=== PATIENT | male | born 1945 | race Caucasian/White ===

== ENCOUNTER → 2017-11-19 08:27 | Outpatient (CLI) | payer MEDICARE, SELFPAY ==
[2017-11-19] VITALS (8 sets, daily range): BP systolic 100–133; BP diastolic 56–75; PULSE 70–73; RESP 18; TEMP 36.4–37.1; O2SAT 97–100; BMI 32.5
[2017-11-19] MEDS: Furosemide 20 MG/2 ML VIAL IV (12:50)
[2017-11-19 17:11] LABS: Hematocrit 29.9 % (40-54); Hemoglobin 9.7 g/dl (13.0-16.5)
--- NOTE | 2017-11-19 17:25 | NURSING ---
REPORT CALLED TO T[facility] SERVICES SPECIALIST AT [place]. HGB >9, PER ORDERS WILL D/C BACK TO [facility] VIA [facility]. PT A&O, VITALS STABLE, NO REACTIONS/PROBLEMS NOTED.
== END ==
PROVIDERS: Family Provider Family Medicine; PCP Family Medicine; Visit Provider Family Medicine
DX: D64.9 Anemia, unspecified (principal); N18.9 Chronic kidney disease, unspecified
CPT/HCPCS: 36430; 85014; 85018; 86850; 86900; 86920; 86922; J7040; P9016; A4216; J1940

== ENCOUNTER 2017-12-12 14:07 | Inpatient (IN) | payer MEDICARE, SELFPAY ==
[2017-12-12] VITALS (14 sets, daily range): BP systolic 121–167; BP diastolic 56–79; PULSE 69–77; RESP 18–30; TEMP 36.9–37.6; O2SAT 94–96; BMI 37.4; BMI 33.5; BMI 37.5
--- NOTE | 2017-12-12 14:41 | RAD_ITS ---
STUDY: X-RAY CHEST REASON FOR EXAM: Male, 72 years old. Several day history of shortness of breath. TECHNIQUE: Single AP portable view of the chest. COMPARISON: None. FINDINGS: EKG electrodes are seen. A right-sided pacemaker device is seen. Small bilateral pleural effusions with bibasilar atelectasis superimposed on CHF. Sternal cerclage wires are present from a prior sternotomy. Prior mitral valve replacement. Cardiomegaly. Normal mediastinum and jake. Normal visualized pulmonary arteries. There is atherosclerotic calcification of the aortic arch with tortuosity. Normal visualized thoracic spine. Normal visualized ribs, clavicles, and shoulders. There is no demonstrated abnormality of the visualized soft tissue structures of the upper abdomen. RAD/Chest 1 View (Portable) IMPRESSION: Cardiomegaly. CHF with small bilateral pleural effusions and bibasilar atelectasis. Electronically Signed: Vadim Ortiz MD at 15:06 EDT Tel [phone], Service support ,
--- NOTE | 2017-12-12 14:42 | EKG12_ITS ---
Test Reason : SOB Blood Pressure : / mmHG Vent. Rate : 070 BPM Atrial Rate : 079 BPM P-R Int : 000 ms QRS Dur : 144 ms QT Int : 430 ms P-R-T Axes : 000 078 054 degrees QTc Int : 464 ms Ventricular-paced rhythm Abnormal ECG Confirmed by MIK RUBY, MARTHA ([id number]), brands editor ISABEL PAUL ([id number]) on 12/16/2017 1:50:10 PM Referred By: KUSH Confirmed By:MARTHA HOUSER MD
--- NOTE | 2017-12-12 14:43 | VDLE_ITS ---
Reason For Study: SWELLING RIGHT LEFT CFV is compressible, spontaneous, phasic, CFV is compressible, spontaneous, phasic, competent and demonstrates normal competent, and demonstrates normal augmentation. augmentation. FV is compressible, spontaneous, phasic, FV is compressible, spontaneous, phasic, competent and demonstrates normal competent and demonstrates normal augmentation. augmentation. POP V is compressible, spontaneous, phasic, POP V is compressible, spontaneous, phasic, competent and demonstrates normal competent and demonstrates normal augmentation. augmentation. T/P Trunk is compressible. T/P Trunk is compressible. PTV is compressible. PTV is compressible. RT PerV is compressible. LT PerV is compressible. RT GSV has been harvested. Left GSV has been harvested. Procedure Exam performed portable in ED. The study was technically difficult. Technically difficult with limited windows due to recent arterial bypass/ stitches in left femoral and calf area. A preliminary report was called and/or faxed to ED. Interpretation Summary Deep veins of the lower extremities are bilaterally patent and compressible segmentally. There is no evidence of deep vein thrombosis on either side. Valvular competence appears intact within the proximal deep venous systems bilaterally. The greater saphenous veins are absent bilaterally, having been previously harvested. Ordering Physician: Bry Crawford Referring Physician: Murali Yusuf Performed By: Ella Omer, NELIDACS, RVT
[2017-12-12] MEDS: Ipratropium/Albuterol Sulfate 3 ML AMPUL.NEB INHALATION (15:05)
[2017-12-12 15:07] LABS: Absolute Lymphocyte Count 0.48 X10^3/ul (0.83-4.51); Absolute Neutrophil Count 20.4 X10^3/uL (2.0-7.7); Basophil# 0.03 X10^3/uL; Basophil% 0.1 % (0-1); Eosinophils% 0.4 % (0-5); Hematocrit 30.8 % (40-54); Lymphocyte # 0.48 X10^3/ul (4.0); Lymphocyte % 2.1 % (19-41); Mean Corp Hgb Conc 32.5 g/gl (32-36); Mean Corpuscular Hgb 29.3 pg (27.0-32.0); Mean Corpuscular Volume 90.3 fL (80-94); Mean Platelet Vol. 8.8 fl (6.2-12.0); Monocyte# 1.44 X10^3/uL; Monocyte% 6.4 % (0-10); Neutrophil # 20.43 X10^3/uL (2.7-7.7); Neutrophil % 90.6 % (47-70); Platelet Count 263 K/mm3 (150-450); RBC Distribution Width SD 44.4 fl (35.1-43.9); Red Blood Count 3.41 M/mm3 (4.6-6.2); White Blood Count 22.6 K/mm3 (4.4-11.0)
[2017-12-12 15:08] LABS: Differential Indicated SCAN CRITERIA MET; POSITIVE COUNT NO; POSITIVE DIFFERENTIAL YES; POSITIVE MORPHOLOGY NO
[2017-12-12 15:21] LABS: Anion Gap 9 (5-15); BUN 41 mg/dL (7-18); BUN/Creat Ratio 22.4 RATIO (10-20); Calcium,Total 8.8 mg/dL (8.5-10.1); Chloride 108 mmol/L (98-107); Creatinine, Serum 1.83 mg/dL (0.70-1.30); EST Glomerular Filtration Rate 39 mL/min (>60); Est Glom Filt Rate - Afr Amer 47 mL/min (>60); Estimated Creatinine Clearance 34.26 ml/min; Glucose 154 mg/dL (74-106); Potassium 4.1 mmol/L (3.5-5.1); Sodium Level 141 mmol/L (136-145)
--- NOTE | 2017-12-12 15:25 | CT_ITS ---
STUDY: CT CHEST WITHOUT CONTRAST REASON FOR EXAM: Male, 72 years old. Infiltrate surgery 2 months ago short of breath RADIATION DOSAGE (If Supplied By Facility): CTDIvol = ( 19.81 ) mGy, DLP = ( 658.49 ) mGycm TECHNIQUE: Transaxial imaging was performed without the administration of intravenous contrast material. Multiplanar coronal and sagittal images were reformatted. Individualized dose optimization techniques were used for this CT. COMPARISON: December 12, 2017 chest x-ray FINDINGS: There is a moderate volume right pleural fluid collection with right lower lobe atelectasis and/or consolidation. There is plaquing in the left pleural and left pleural thickening which is age indeterminant. There is moderate cardiomegaly status post sternotomy and coronary artery calcifications and several pacer leads including abandoned leads and numerous leads extending from the right chest. There is calcification of the takeoff of the aorta. There is mild central groundglass opacity. There is a lymph node in the precarinal space measuring 1.5 cm. There are several small subcentimeter lymph nodes. Normal mediastinum. Normal hilar regions. Normal unenhanced pulmonary arteries. There is atherosclerotic calcification of the aortic arch with tortuosity and elongation of the aortic arch and descending thoracic aorta. There is an increased kyphosis of the thoracic spine. There is an enlarged appearance of the liver with a hypertrophied appearance of the caudate. There is a distended appearance of the inferior vena cava. There are numerous calcifications in the visualized spleen compatible with old granulomatous disease. There is postoperative change status post cholecystectomy. CT/Chest without Contrast IMPRESSION: There is a moderate to large right pleural effusion with atelectasis and/or consolidation. There is mild central vascular congestion Left pleural thickening and plaquing. This may represent prior procedure and/or history of infection. Cardiomegaly pacer defibrillator leads status post sternotomy. 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 Electronically Signed: Zeinab Yo MD at 16:40 EDT Tel , Service support ,
[2017-12-12 15:28] LABS: Lactic Acid 1.1 mmol/L (0.4-2.0)
[2017-12-12 15:33] LABS: D-Dimer Quantitative (DVT/PE) 2.76 FEU/ug/m (0.27-0.49)
[2017-12-12 16:16] LABS: Bacteria 0 SEEN /hpf (None Seen); Mucous, Urine 0 SEEN /hpf (<or=2+); Red Blood Cells-Urine 0 SEEN /hpf (0-5); Squamous Epithelial Cells - UA 0 SEEN /hpf (0-5)
[2017-12-12 16:21] LABS: Color, Urine Yellow (Yellow); Glucose, Dipstick Normal (Normal); Ketone-Dipstick Negative (Negative); Leukocyte Esterase-Dipstick 25 /ul (Negative); Nitrite-Dipstick Negative (Negative); Occult Blood-Urine Negative /ul (Negative); Protein-Dipstick 100 mg/dl (Negative); Specific Gravity, Urine 1.015 (1.002-1.030); Urine Bilirubin Dipstick Negative (Negative); Urine Clarity Clear (Clear); Urine Urobilinogen Normal (Normal)
--- NOTE | 2017-12-12 16:44 | ED.RN ---
1600-Dr. Crawford and Dr. Isaac at bedside. Patient voided approx 250ml urine via urinal. Refusing catheter at this time. Specimen obtained and sent to lab.
[2017-12-12] MEDS: Furosemide 40 MG/4 ML Vial IV ×2 (16:55→22:58)
--- NOTE | 2017-12-12 17:13 | ED.VISSUMM ---
- ER Visit Summary Date of Service: 12/12/17 Chief Complaint: Shortness of breath History of Present Illness: The patient is a [address] Murali Qureshi. He reports he is shortness of breath began 2 days ago. Is gradually gotten worse. It is severe at worst and mild currently. It is worsened by exertion. It is relieved somewhat by albuterol and oxygen. He also complains of subjective fever and sweats. Reports he had 3-4 episodes of diarrhea today. No blood in his stools or black tarry stools. No abdominal pain, nausea, or vomiting. He does complain of dysuria as well. Patient is a poor informant. Physical Examination: Vitals: Stable. Afebrile. General: Well-nourished and well-developed. Head: Normocephalic atraumatic. Neck: Supple, no lymphadenopathy. No JVD. Nontender. Cardiovascular: Regular rate and rhythm. No murmurs. Respiratory: No respiratory distress. Crackles at the bases bilaterally. Abdominal: Soft, nontender, nondistended, normal bowel sounds. No guarding, rebound, or peritoneal signs. Back: Nontender. Extremities: 3+ pitting edema of his lower extremities bilaterally. Well-healed incisions on the medial side of his left thigh and left leg. They are clean, dry, and intact. There is no surrounding erythema or induration to suggest infection. He has mild erythema to the distal portion of his left leg. There is minimal warmth. 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 The incision here is healing and has granulation tissue present. There is no erythema, warmth, drainage, or odor. Skin: Normal color, no rash. Neurologic: Alert and moves all extremities well. Psych: Normal affect. Test Results: EKG is ventricular paced at 70. Bilateral lower extremity Dopplers are negative. Troponin is negative. Chem-7 is more for chloride 1 week, BUN 41, creatinine 1.3, glucose 154. There is not an old creatinine for comparison. CBC is marked for white count of 22.6, H&H of 10.0 30.8, segmented neutrophils of 91, leukocytes of 2. Lactic acid is 1.1. Chest x-ray shows CHF, cardiomegaly, small bilateral pleural effusions and atelectasis. CT chest without contrast shows moderate to large right pleural effusion with atelectasis and/or consolidation. Mild vascular congestion. UA is normal. Emergency Department Course and Treatment: Patient is treated albuterol and Atrovent aerosols. He was given Lasix and Zosyn IV. He is resting comfortably and appears improved. Treatment Plan: The patient was discussed with Dr. Isaac. He will be admitted to the hospital for further relation and treatment. Disposition: Admitted in improved condition. Impression: 1. CHF. 2. Bilateral pleural effusions. 3. Pneumonia, healthcare acquired. 4. Chronic renal insufficiency. This note was generated with Glia[employer]ure dictation software. It may contain incorrect words, spelling, and punctuation that were not noted in review of the chart prior to signing ED Disposition - Plan for ED Patient: Chief Complaint: Shortness of Breath Referrals: Murali Yusuf MD [Primary Care Provider] -
--- NOTE | 2017-12-12 17:16 | ED.DCSUM_ITS ---
- ER Visit Summary Date of Service: 12/12/17 Chief Complaint: Shortness of breath History of Present Illness: The patient is a [address] Murali Qureshi. He reports he is shortness of breath began 2 days ago. Is gradually gotten worse. It is severe at worst and mild currently. It is worsened by exertion. It is relieved somewhat by albuterol and oxygen. He also complains of subjective fever and sweats. Reports he had 3-4 episodes of diarrhea today. No blood in his stools or black tarry stools. No abdominal pain, nausea, or vomiting. He does complain of dysuria as well. Patient is a poor informant. Physical Examination: Vitals: Stable. Afebrile. General: Well-nourished and well-developed. Head: Normocephalic atraumatic. Neck: Supple, no lymphadenopathy. No JVD. Nontender. Cardiovascular: Regular rate and rhythm. No murmurs. Respiratory: No respiratory distress. Crackles at the bases bilaterally. Abdominal: Soft, nontender, nondistended, normal bowel sounds. No guarding, rebound, or peritoneal signs. Back: Nontender. Extremities: 3+ pitting edema of his lower extremities bilaterally. Well- healed incisions on the medial side of his left thigh and left leg. They are clean, dry, and intact. There is no surrounding erythema or induration to suggest infection. He has mild erythema to the distal portion of his left leg. There is minimal warmth. 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 The incision here is healing and has granulation tissue present. There is no erythema, warmth, drainage, or odor. Skin: Normal color, no rash. Neurologic: Alert and moves all extremities well. Psych: Normal affect. Test Results: EKG is ventricular paced at 70. Bilateral lower extremity Dopplers are negative. Troponin is negative. Chem-7 is more for chloride 1 week, BUN 41, creatinine 1.3, glucose 154. There is not an old creatinine for comparison. CBC is marked for white count of 22.6, H&H of 10.0 30.8, segmented neutrophils of 91, leukocytes of 2. Lactic acid is 1.1. Chest x-ray shows CHF , cardiomegaly, small bilateral pleural effusions and atelectasis. CT chest without contrast shows moderate to large right pleural effusion with atelectasis and/or consolidation. Mild vascular congestion. UA is normal. Emergency Department Course and Treatment: Patient is treated albuterol and Atrovent aerosols. He was given Lasix and Zosyn IV. He is resting comfortably and appears improved. Treatment Plan: The patient was discussed with Dr. Isaac. He will be admitted to the hospital for further relation and treatment. Disposition: Admitted in improved condition. Impression: 1. CHF. 2. Bilateral pleural effusions. 3. Pneumonia, healthcare acquired. 4. Chronic renal insufficiency. This note was generated with [employer]ar dictation software. It may contain incorrect words, spelling, and punctuation that were not noted in review of the chart prior to signing ED Disposition - Plan for ED Patient: Chief Complaint: Shortness of Breath Referrals: Murali Yusuf MD [Primary Care Provider] -
[2017-12-12 17:19] LABS: White Blood Cells 0-5 SEEN /hpf (0-5)
[2017-12-12 17:25] LABS: Platelet Estimate ADEQUATE (ADEQ)
[2017-12-12 17:26] LABS: Differential Comment SCANNED
--- NOTE | 2017-12-12 17:36 | ED.RN ---
daughter jewel for contact. [phone]
[2017-12-12] MEDS: Albuterol 2.5 MG/3 ML VIAL.NEB. INHALATION (21:22)
--- NOTE | 2017-12-12 22:31 | PCM.HP.STD ---
Problem List (1) Shortness of breath Status: Acute (2) Generalized leg edema Status: Acute History of Present Illness Date of Admission: 12/12/17 Chief Complaint: Generalized bilateral leg edema, shortness of breath The patient is a 72 year old M who was sent to the emergency room at [facility] for evaluation of increased lower extremity edema along with shortness of breath from a local extended care facility. Patient recently had arterial bypass surgery on his right leg and was sent to the extended care facility for rehab recently. Patient has dementia and was unable to provide any medical information, I talked with the family member who was present at the time of my examination to get some medical information from the family member. Evaluation in the emergency room included a chest x-ray which showed evidence of CHF, CT of the chest was performed which showed a right lower lobe infiltrate or atelectasis also. Patient's d-dimer was elevated so a venous duplex scan was done of the lower extremities which was negative for DVT. Patient's labs showed an elevated white blood cell count at 22.6, creatinine was elevated at 1.83, BUN was 41, and glucose is 154. Patient was alert, he did not appear to be in any distress. Patient will be admitted for acute congestive heart failure, echocardiogram be obtained on the patient, he will be given IV Lasix, and he will also be treated for healthcare acquired pneumonia with IV Zosyn. Repeat labs will be obtained tomorrow, repeat chest x-ray will be obtained. 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 Home Medications: Ambulatory Orders Medication Instructions Recorded acetaminophen 325 mg capsule 650 mg PO Q4H PRN 10/01/17 acetaminophen 650 mg rectal 650 mg RC Q4H PRN supp 10/01/17 suppository aluminum-magnesium hydroxide 225 30 ml PO Q4H PRN 10/01/17 mg-200 mg/5 mL oral suspension amlodipine 10 mg tablet 10 mg PO DAILY 10/01/17 ascorbic acid (vitamin C) 250 mg 250 mg PO DAILY 10/01/17 tablet atorvastatin 40 mg tablet 40 mg PO DAILY 10/01/17 bisacodyl 10 mg rectal suppository 10 mg RC DAILY PRN PRN 10/01/17 carvedilol 25 mg tablet 25 mg PO BID 10/01/17 clopidogrel 75 mg tablet 75 mg PO DAILY 10/01/17 ferrous sulfate 325 mg (65 mg 325 mg PO TID tab 10/01/17 iron) tablet furosemide 40 mg tablet 40 mg PO DAILY tab 10/01/17 glucagon (human recombinant) 1 mg 1 mg IM ONCE 10/01/17 injection kit ipratropium-albuterol 0.5 mg-3 3 ml INHALATION Q6H ml 10/01/17 mg(2.5 mg base)/3 mL nebulization soln levothyroxine 100 mcg capsule 100 mcg PO DAILY cap 10/01/17 lisinopril 40 mg tablet 40 mg PO DAILY 10/01/17 magnesium hydroxide 400 mg/5 mL 30 ml PO ONCE 10/01/17 oral suspension memantine 10 mg tablet 10 mg PO BID 10/01/17 mineral oil enema 118 ml RC ONCE PRN 10/01/17 multivitamin tablet 1 tab PO DAILY 10/01/17 pantoprazole 40 mg tablet,delayed 40 mg PO DAILY 10/01/17 release sennosides 8.6 mg tablet 8.6 mg PO BID 10/01/17 tamsulosin 0.4 mg capsule 0.4 mg PO DAILY 10/01/17 vitamin E (dl, acetate) 400 unit 400 unit PO DAILY 10/01/17 capsule zinc sulfate 220 mg (50 mg) capsule 220 mg PO DAILY cap 10/01/17 linagliptin 5 mg tablet 5 mg PO DAILY 10/02/17 Guaifenesin 10 ml PO PRN PRN 11/19/17 Oxycodone HCl/Acetaminophen 1 tablet PO Q4H PRN PRN 11/19/17 [Percocet 5/325] Surgical History: - - Patient had bypass surgery on his left leg approximately 1 month ago, 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 VTE Information - Inpt Only VTE Present on Admission: No VTE Mechan Device Prophylaxis: None VTE Pharm Prophylaxis ordered?: Yes Patient Problems: Active and Suspected Problems (Last Reviewed 10/02/17 @ 14:38 by Nessa Jackson) Shortness of breath (Acute) Generalized leg edema (Acute) - Physical Exam General: Alert, Cooperative, No apparent distress, Well developed, Well nourished HEENT: Atraumatic, PERRLA, EOMI, Normocephalic Oral: Moist Mucosa Neck: Supple, No JVD, Negative Carotid Bruits, No Nuchal Rigidity, Trachea Midline, Thyroid Normal Size and Texture Lungs: Clear to auscultation, No rhonchi, No wheeze, No rales, Diminished - Diminished breath sounds at the right base Cardiovascular: Regular rate, Regular Rhythm, Normal S1, Normal S2, No murmurs, No Ectopic Activity, PMI Normal, No rub noted, No Gallop, - - Patient has paced rhythm Abdomen: Bowel Sounds Present, Soft, Non Tender, Non-Distended, No hernias noted Extremities: Capillary Refill Less than 3 Seconds, Edema - Severe generalized edema of both lower legs is noted, there is an incision over the medial aspect of the left lower leg closed with interrupted sutures Skin: No rashes, No breakdown, Ulcer/ Wound - There is a right forefoot amputation present which appears to be healing adequately without signs of drainage or infection, Incision - There is a healing incision over the patient's left lower leg on the inner aspect with interrupted sutures present Musculoskeletal: No Tenderness to Palpation of Joints or Extremities Neurological: Cranial nerves II-XII grossly intact, Neuro grossly intact, Sensory exam intact to light touch and pain Psych/Mental Status: - - Patient is alert, he answers some questions appropriately, he has confusion Vital Signs Temp Pulse Resp BP Pulse Ox 99.7 F H 74 20 H 139/70 H 96 12/12/17 18:45 12/12/17 21:22 12/12/17 21:22 12/12/17 18:45 12/12/17 21:27 Oxygen Flow Rate (L/min) 3 Oxygen Delivery Method Nasal Cannula Weight: 100 kg Body Mass Index (BMI) 33.5 Assessment/Plan Active and Suspected Problems (Last Reviewed 10/02/17 @ 14:38 by Nessa Jackson) Shortness of breath (Acute) Generalized leg edema (Acute) #1 congestive heart failure-unknown whether this is diastolic or systolic, patient will be admitted to PCU, echocardiogram will be obtained, IV Lasix will be given, patient will be kept on his present medications #2 right lower lobe infiltrate-in the presence of an elevated white blood cell count, I suspect this could be due to healthcare acquired pneumonia, patient will be placed on Zosyn and repeat chest x-rays will be obtained, labs will be monitored, aerosol treatments will be given #3 COPD-continue aerosol treatments #4 Perperiperal vascular disease #5 Alzheimer's dementia #6 Hypertension #7 A-fib-poor candidate for anticoagulation due to dementia #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
--- NOTE | 2017-12-12 22:35 | HP.PCM_ITS ---
Problem List (1) Shortness of breath Status: Acute (2) Generalized leg edema Status: Acute History of Present Illness Date of Admission: 12/12/17 Chief Complaint: Generalized bilateral leg edema, shortness of breath The patient is a 72 year old M who was sent to the emergency room at [facility] for evaluation of increased lower extremity edema along with shortness of breath from a local extended care facility. Patient recently had arterial bypass surgery on his right leg and was sent to the extended care facility for rehab recently. Patient has dementia and was unable to provide any medical information, I talked with the family member who was present at the time of my examination to get some medical information from the family member. Evaluation in the emergency room included a chest x-ray which showed evidence of CHF, CT of the chest was performed which showed a right lower lobe infiltrate or atelectasis also. Patient's d-dimer was elevated so a venous duplex scan was done of the lower extremities which was negative for DVT. Patient's labs showed an elevated white blood cell count at 22.6, creatinine was elevated at 1.83, BUN was 41, and glucose is 154. Patient was alert, he did not appear to be in any distress. Patient will be admitted for acute congestive heart failure, echocardiogram be obtained on the patient, he will be given IV Lasix, and he will also be treated for healthcare acquired pneumonia with IV Zosyn. Repeat labs will be obtained tomorrow, repeat chest x-ray will be obtained. Past Medical History Past Medical History (Chronic Problems): Chronic Problems (Last Reviewed 10/02/17 @ 14:38 by Nessa Jackson) Atherosclerotic heart disease of [place] coronary artery without angina pectoris (Chronic) Hypertension (Chronic) Allergies aspirin Adverse Reaction (Intermediate, Verified 10/02/17 14:23) Unknown iodine Adverse Reaction (Unknown, Verified 10/02/17 14:23) Unknown Patient has one kidney, change management director wanted it listed as allergy Home Medications: Ambulatory Orders Medication Instructions Recorded acetaminophen 325 mg capsule 650 mg PO Q4H PRN 10/01/17 acetaminophen 650 mg rectal 650 mg RC Q4H PRN supp 10/01/17 suppository aluminum-magnesium hydroxide 225 30 ml PO Q4H PRN 10/01/17 mg-200 mg/5 mL oral suspension amlodipine 10 mg tablet 10 mg PO DAILY 10/01/17 ascorbic acid (vitamin C) 250 mg 250 mg PO DAILY 10/01/17 tablet atorvastatin 40 mg tablet 40 mg PO DAILY 10/01/17 bisacodyl 10 mg rectal suppository 10 mg RC DAILY PRN PRN 10/01/17 carvedilol 25 mg tablet 25 mg PO BID 10/01/17 clopidogrel 75 mg tablet 75 mg PO DAILY 10/01/17 ferrous sulfate 325 mg (65 mg 325 mg PO TID tab 10/01/17 iron) tablet furosemide 40 mg tablet 40 mg PO DAILY tab 10/01/17 glucagon (human recombinant) 1 mg 1 mg IM ONCE 10/01/17 injection kit ipratropium-albuterol 0.5 mg-3 3 ml INHALATION Q6H ml 10/01/17 mg(2.5 mg base)/3 mL nebulization soln levothyroxine 100 mcg capsule 100 mcg PO DAILY cap 10/01/17 lisinopril 40 mg tablet 40 mg PO DAILY 10/01/17 magnesium hydroxide 400 mg/5 mL 30 ml PO ONCE 10/01/17 oral suspension memantine 10 mg tablet 10 mg PO BID 10/01/17 mineral oil enema 118 ml RC ONCE PRN 10/01/17 multivitamin tablet 1 tab PO DAILY 10/01/17 pantoprazole 40 mg tablet,delayed 40 mg PO DAILY 10/01/17 release sennosides 8.6 mg tablet 8.6 mg PO BID 10/01/17 tamsulosin 0.4 mg capsule 0.4 mg PO DAILY 10/01/17 vitamin E (dl, acetate) 400 unit 400 unit PO DAILY 10/01/17 capsule zinc sulfate 220 mg (50 mg) capsule 220 mg PO DAILY cap 10/01/17 linagliptin 5 mg tablet 5 mg PO DAILY 10/02/17 Guaifenesin 10 ml PO PRN PRN 11/19/17 Oxycodone HCl/Acetaminophen 1 tablet PO Q4H PRN PRN 11/19/17 [Percocet 5/325] Surgical History: - - Patient had bypass surgery on his left leg approximately 1 month ago, 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 VTE Information - Inpt Only VTE Present on Admission: No VTE Mechan Device Prophylaxis: None VTE Pharm Prophylaxis ordered?: Yes Patient Problems: Active and Suspected Problems (Last Reviewed 10/02/17 @ 14:38 by Nessa Jackson) Shortness of breath (Acute) Generalized leg edema (Acute) - Physical Exam General: Alert, Cooperative, No apparent distress, Well developed, Well nourished HEENT: Atraumatic, PERRLA, EOMI, Normocephalic Oral: Moist Mucosa Neck: Supple, No JVD, Negative Carotid Bruits, No Nuchal Rigidity, Trachea Midline, Thyroid Normal Size and Texture Lungs: Clear to auscultation, No rhonchi, No wheeze, No rales, Diminished - Diminished breath sounds at the right base Cardiovascular: Regular rate, Regular Rhythm, Normal S1, Normal S2, No murmurs, No Ectopic Activity, PMI Normal, No rub noted, No Gallop, - - Patient has paced rhythm Abdomen: Bowel Sounds Present, Soft, Non Tender, Non-Distended, No hernias noted Extremities: Capillary Refill Less than 3 Seconds, Edema - Severe generalized edema of both lower legs is noted, there is an incision over the medial aspect of the left lower leg closed with interrupted sutures Skin: No rashes, No breakdown, Ulcer/ Wound - There is a right forefoot amputation present which appears to be healing adequately without signs of drainage or infection, Incision - There is a healing incision over the patient' s left lower leg on the inner aspect with interrupted sutures present Musculoskeletal: No Tenderness to Palpation of Joints or Extremities Neurological: Cranial nerves II-XII grossly intact, Neuro grossly intact, Sensory exam intact to light touch and pain Psych/Mental Status: - - Patient is alert, he answers some questions appropriately, he has confusion Vital Signs Temp Pulse Resp BP Pulse Ox 99.7 F H 74 20 H 139/70 H 96 12/12/17 18:45 12/12/17 21:22 12/12/17 21:22 12/12/17 18:45 12/12/17 21:27 Oxygen Flow Rate (L/min) 3 Oxygen Delivery Method Nasal Cannula Weight: 100 kg Body Mass Index (BMI) 33.5 Assessment/Plan Active and Suspected Problems (Last Reviewed 10/02/17 @ 14:38 by Nessa Jackson) Shortness of breath (Acute) Generalized leg edema (Acute) #1 congestive heart failure-unknown whether this is diastolic or systolic, patient will be admitted to PCU, echocardiogram will be obtained, IV Lasix will be given, patient will be kept on his present medications #2 right lower lobe infiltrate-in the presence of an elevated white blood cell count, I suspect this could be due to healthcare acquired pneumonia, patient will be placed on Zosyn and repeat chest x-rays will be obtained, labs will be monitored, aerosol treatments will be given #3 COPD-continue aerosol treatments #4 Perperiperal vascular disease #5 Alzheimer's dementia #6 Hypertension #7 A-fib-poor candidate for anticoagulation due to dementia #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
[2017-12-12] MEDS: Heparin Injection 5,000 UNITS/ML Syringe 5000 UNITS SC (22:57)
[2017-12-13] VITALS (17 sets, daily range): BP systolic 117–133; BP diastolic 58–82; PULSE 70–77; RESP 15–20; TEMP 36.6–37.9; O2SAT 94–97
[2017-12-13] MEDS: Piperacil/Tazobactam 3.375 GM/50 ML ML IV ×2 (01:54→09:06)
[2017-12-13] MEDS: Furosemide 40 MG/4 ML Vial IV ×3 (05:22→20:39)
[2017-12-13] MEDS: Heparin Injection 5,000 UNITS/ML Syringe 5000 UNITS SC ×3 (05:22→21:54)
--- NOTE | 2017-12-13 05:55 | ECHOD_ITS ---
Reason For Study: Dyspnea/SOB Procedure This was a 2D Doppler, Color Flow transthoracic echocardiogram. Did not use Definity due to increased PAP. Exam performed portable in patient room. Left Ventricle Normal LV size. Mild concentric left ventricular hypertrophy. D shaped septum in diastole. Left ventricular systolic function is lower limits of normal. The estimated ejection fraction is 50 %. No regional wall motion abnormalities noted. Right Ventricle Normal RV size. ICD or pacer leads identified within the right ventricle. Normal systolic function. Atria The left atrium is mildly enlarged. The right atrium is moderately enlarged. Mitral Valve There is moderate to severe mitral annular calcification. Mild (1+) eccentric mitral valve insufficiency. Tricuspid Valve Normal tricuspid valve. Mild (1+) tricuspid valve insufficiency. Pulmonary artery systolic pressure is 52 mmHg. Aortic Valve Trisinus/trileaflet aortic valve. Moderate focal aortic valve calcification. Peak aortic valve gradient 27 mmHg. Mean aortic valve gradient 16 mmHg. Calculated aortic valve area (continuity equation) is 1.3 cm2. Pulmonic Valve The pulmonic valve is not well visualized. Great Vessels Mildly dilated aortic root. The pulmonary artery is normal size. The inferior vena cava is dilated. Pericardium/Pleural No pericardial effusion. MMode/2D Measurements & Calculations LVIDd: 4.8 cm IVSd: 1.4 cm LVOT diam: 2.1 cm LVIDs: 3.5 cm LVPWd: 1.2 cm LVOT area: 3.5 cm2 FS: 27.5 % Ao root diam: 3.7 cm LAV(MOD-bp): 87.4 ml LA A4 area: 24.3 cm2 LA dimension: 5.6 cm LAV(MOD-bp) Indexed: 41.1 ml/m2 LAV(MOD-sp2): 85.8 ml LAV(MOD-sp4): 67.4 ml RA A4 area: 30.2 cm2 Time Measurements MV dec time: 0.11 sec Doppler Measurements & Calculations MV E max meng: 135.6 cm/sec Lat Peak E' Meng: 11.7 cm/sec Med Peak E' Meng: 10.1 cm/sec MV A max meng: 37.9 cm/sec E/E' lat: 11.5 E/E' med: 13.4 MV E/A: 3.6 MV V2 max: 171.4 cm/sec MV P1/2t max meng: 163.1 cm/sec Ao V2 max: 261.7 cm/sec MV max P.8 mmHg MV P1/2t: 69.5 msec Ao max P.4 mmHg MV V2 mean: 78.4 cm/sec MV dec slope: 687.3 cm/sec2 Ao V2 mean: 192.1 cm/sec MV mean P.3 mmHg MVA(P1/2t): 3.2 cm2 Ao mean P.2 mmHg MV V2 VTI: 40.1 cm Ao V2 VTI: 53.8 cm MVA(VTI): 2.6 cm2 ADELINE(I,D): 1.9 cm2 ADELINE(V,D): 1.3 cm2 LV V1 max: 93.2 cm/sec SV(LVOT): 102.8 ml PA V2 max: 133.6 cm/sec LV V1 max P.9 mmHg LV V1 mean P.2 mmHg LV V1 mean: 97.2 cm/sec LV V1 VTI: 29.0 cm TR max meng: 344.7 cm/sec TR max P.5 mmHg Interpretation Summary Normal LV size. Mild concentric left ventricular hypertrophy. D shaped septum in diastole. Left ventricular systolic function is lower limits of normal. The estimated ejection fraction is 50 %. Mild (1+) tricuspid valve insufficiency. Pulmonary artery systolic pressure is 52 mmHg. Calculated aortic valve area (continuity equation) is 1.3 cm2. Ordering Physician: Buck Isaac Referring Physician: Murali Yusuf Performed By: Opal Juarez RDCS, RVT
--- NOTE | 2017-12-13 05:55 | RAD_ITS ---
STUDY: X-RAY CHEST REASON FOR EXAM: Male, 72 years old. Shortness of breath TECHNIQUE: Single AP portable view of the chest. COMPARISON: December 12, 2017 chest x-ray FINDINGS: There are left-sided pacer leads which are banding. There is a right-sided pacer. Since prior study there is a similar pattern of blunting of the costophrenic angles and hazy lower lobe opacities. Normal size heart. Normal mediastinum and jake. Normal visualized pulmonary arteries. There is atherosclerotic tortuosity of the aortic arch and descending thoracic aorta. There are diffuse degenerative changes of the visualized thoracic spine. Normal visualized ribs, clavicles, and shoulders. There is no demonstrated abnormality of the visualized soft tissue structures of the upper abdomen. RAD/Chest 1 View (Portable) IMPRESSION: Stable chest bilateral effusions and lower lobe atelectasis. Cardiomegaly status post sternotomy defibrillator leads as detailed above. Electronically Signed: Zeinab Yo MD at 8:29 EDT Tel , Service support ,
[2017-12-13] MEDS: Albuterol 2.5 MG/3 ML VIAL.NEB. INHALATION ×4 (07:04→23:56)
[2017-12-13 07:18] LABS: Hematocrit 29.1 % (40-54); Hemoglobin 9.2 g/dl (13.0-16.5); Mean Corp Hgb Conc 31.6 g/gl (32-36); Mean Corpuscular Volume 91.8 fL (80-94); Mean Platelet Vol. 9.6 fl (6.2-12.0); Platelet Count 222 K/mm3 (150-450); RBC Distribution Width CV 14.2 % (11.6-14.6); Red Blood Count 3.17 M/mm3 (4.6-6.2); White Blood Count 23.9 K/mm3 (4.4-11.0)
[2017-12-13 07:20] LABS: Scan Indicated on CBC? Y/N NO
[2017-12-13 11:39] LABS: Anion Gap 7 (5-15); BUN 41 mg/dL (7-18); BUN/Creat Ratio 19.2 RATIO (10-20); Calcium,Total 8.9 mg/dL (8.5-10.1); Chloride 108 mmol/L (98-107); Creatinine, Serum 2.13 mg/dL (0.70-1.30); EST Glomerular Filtration Rate 32 mL/min (>60); Est Glom Filt Rate - Afr Amer 39 mL/min (>60); Estimated Creatinine Clearance 29.44 ml/min; Glucose 103 mg/dL (74-106); Potassium 4.2 mmol/L (3.5-5.1); Sodium Level 143 mmol/L (136-145)
[2017-12-13] MEDS: Cefepime 1 GM in 0.9% NS 50 ML Minibag Q12 IV ×2 (13:23→21:55)
--- NOTE | 2017-12-13 13:39 | CASEMGMT ---
Social Work Unit: PCU Received notice that patient is from a [place] [facility]. Chart reviewed noting patient if from [facility]. Spoke with Kayley from [facility], who reports patient is currently intermediate level of care under Medicaid (which was just approved last week). Patient is currently on a [place] bed hold at the [place] [facility], and can return under Medicaid if needed. Should patient require skilled level of care, then will need to submit to insurance of [employer]. Spoke with physician treating patient at hospital, patient not yet ready for discharge and anticipating stay through the weekend. Plan: Social work to follow and will follow up on Friday12-15-17. Anticipating return to [facility], intermediate versus skilled level of care. -MIKE Naik, DUST PULLER
--- NOTE | 2017-12-13 13:57 | PCM.CONS.C ---
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 He also has history of ICD placement. He presented to the hospital with complaints of progressive shortness of breath over the last few days. Mild cough. Minimal expectoration. Not sure about orthopnea. Positive ankle edema. Denies any chest pain. Denies any palpitations. No syncope or presyncope. Patient was noted to be in atrial fibrillation. Subsequently he was started on calcium channel blockers for rate control. Also started on Xarelto for anticoagulation. Patient denies any previous history of atrial fibrillation. He denies any bleeding disorders. No history of frequent falls. 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 wanted it listed as allergy Home Medications: Ambulatory Orders Medication Instructions Recorded acetaminophen 325 mg capsule 650 mg PO Q4H PRN 10/01/17 acetaminophen 650 mg rectal 650 mg RC Q4H PRN supp 10/01/17 suppository aluminum-magnesium hydroxide 225 30 ml PO Q4H PRN 10/01/17 mg-200 mg/5 mL oral suspension amlodipine 10 mg tablet 10 mg PO DAILY 10/01/17 ascorbic acid (vitamin C) 250 mg 250 mg PO DAILY 10/01/17 tablet atorvastatin 40 mg tablet 40 mg PO DAILY 10/01/17 bisacodyl 10 mg rectal suppository 10 mg RC DAILY PRN PRN 10/01/17 carvedilol 25 mg tablet 25 mg PO BID 10/01/17 clopidogrel 75 mg tablet 75 mg PO DAILY 10/01/17 ferrous sulfate 325 mg (65 mg 325 mg PO TID tab 10/01/17 iron) tablet furosemide 40 mg tablet 40 mg PO DAILY tab 10/01/17 glucagon (human recombinant) 1 mg 1 mg IM ONCE 10/01/17 injection kit ipratropium-albuterol 0.5 mg-3 3 ml INHALATION Q6H ml 10/01/17 mg(2.5 mg base)/3 mL nebulization soln levothyroxine 100 mcg capsule 100 mcg PO DAILY cap 10/01/17 lisinopril 40 mg tablet 40 mg PO DAILY 10/01/17 magnesium hydroxide 400 mg/5 mL 30 ml PO ONCE 10/01/17 oral suspension memantine 10 mg tablet 10 mg PO BID 10/01/17 mineral oil enema 118 ml RC ONCE PRN 10/01/17 multivitamin tablet 1 tab PO DAILY 10/01/17 pantoprazole 40 mg tablet,delayed 40 mg PO DAILY 10/01/17 release sennosides 8.6 mg tablet 8.6 mg PO BID 10/01/17 tamsulosin 0.4 mg capsule 0.4 mg PO DAILY 10/01/17 vitamin E (dl, acetate) 400 unit 400 unit PO DAILY 10/01/17 capsule zinc sulfate 220 mg (50 mg) capsule 220 mg PO DAILY cap 10/01/17 linagliptin 5 mg tablet 5 mg PO DAILY 10/02/17 Guaifenesin 10 ml PO PRN PRN 11/19/17 Oxycodone HCl/Acetaminophen 1 tablet PO Q4H PRN PRN 11/19/17 [Percocet 5/325] Past Medical History (Chronic Problems): Chronic Problems (Last Reviewed 10/02/17 @ 14:38 by Nessa Jackson) Atherosclerotic heart disease of [place] coronary artery without angina pectoris (Chronic) Hypertension (Chronic) Smoking Status: Former smoker Review of Systems - Review of Systems General: Denies: Fever, Chills HEENT: Denies: Head Aches Cardiovascular: Reports: Shortness of Breath at Rest, Peripheral Edema. Denies: Chest Discomfort, Chest Discomfort at Rest, Chest Discomfort with Exertion, Palpitations, Syncope Respiratory: Reports: Cough Gastrointestinal: Denies: Jaundice, Nausea, Emesis, Hematemesis, Melena Neurological: Denies: History of TIA, History of CVA Endocrine: Denies: Heat Intolerance, Cold Intolerance Hematologic/ Lymphatic: Denies: Easy Brusing, Easy Bleeding Subjectve: Appears mildly distressed. Objective: Vital Signs Temp Pulse Resp BP Pulse Ox 98.6 F 70 18 133/82 H 94 12/13/17 10:35 12/13/17 10:52 12/13/17 10:35 12/13/17 10:35 12/13/17 10:35 Oxygen Flow Rate (L/min) 2.5 Oxygen Delivery Method Nasal Cannula Weight: 100 kg Body Mass Index (BMI) 33.5 Intake and Output for Last 24 Hours 12/11/17 12/12/17 12/13/17 23:59 23:59 23:59 Intake Total 200 / 200 815 / 815 Output Total 550 / 550 1250 / 1250 Balance -350 / -350 -435 / -435 General: Awake, Alert, Oriented x 3, - - Appears mildly distressed HEENT: Atraumatic, Normocephalic Oral: Moist Mucosa Neck: Supple, Positive JVD Lungs: - - Creased breath sounds both bases. Wheezing. No crepitation. Cardiovascular: Regular Rhythm, Normal S1, Normal S2 Abdomen: Bowel Sounds Present, Soft Extremities: Bilateral Edema +1 Neurological: No Focal Motor or Sensory Deficit Psych/Mental Status: Appropriate 12/13/17 06:21: WBC 23.9 H, RBC 3.17 L, Hgb 9.2 L, Hct 29.1 L, MCV 91.8, MCH 29.0, MCHC 31.6 L, RDW 14.2, RDW Differential 46.0 H, Plt Count 222, MPV 9.6 12/13/17 06:21: Sodium 143, Potassium 4.2, Chloride 108 H, Carbon Dioxide 28.0, Anion Gap 7, BUN 41 H, Creatinine 2.13 H, Est GFR (MDRD) Af Amer 39 L, Est GFR (MDRD) Non-Af 32 L, BUN/Creatinine Ratio 19.2, Glucose 103, Calcium 8.9 Rhythm: Atrial fibrillation. On demand ventricular electronic pacemaker activity EKG: Atrial fibrillation as the underlying rhythm. Chronic ventricular paced rhythm ECHO: EF 50%. Moderate pulmonary hypertension. Chest CT Scan: Moderate to large right pleural effusion with possible consolidation and/or atelectasis Assessment/Plan 1. Atrial fibrillation. Agree with rate controlled with beta blockers and calcium channel blockers. Agree with anticoagulation to reduce thromboembolic risk. Discussed with patient. He agrees with the plan for chronic long-term anticoagulation 2. History of coronary artery disease status post CABG 3. History of aortic valve disease status post replacement with a porcine valve 4. Shortness of breath. Consider pneumonia. Moderate to large pleural effusion. Consider thoracentesis 5. History of hypertension 5. History of ICD placement 6. Moderate pulmonary hypertension 7. Lower extremity edema. Mild JVD. Consider primarily right heart issue. Continue diuretics. Decrease dose.
[2017-12-13] MEDS: Acetaminophen 325 MG Tablet 650 MG PO (15:43)
--- NOTE | 2017-12-13 17:46 | PN_ITS ---
Patient Problems: Active and Suspected Problems (Last Reviewed 10/02/17 @ 14:38 by Nessa Jackson) Shortness of breath (Acute) Generalized leg edema (Acute) Subjective: Patient seen and examined today, he voices no complaints except for back discomfort. Patient's T-max today is been 100.3, chest x-ray shows no change from yesterday. Patient's white blood cell count is still elevated, patient's creatinine has risen today to 2.13. Echocardiogram today showed an intermediate section fraction of 50%, there was pulmonary hypertension which is moderate at 52 - Physical Exam General: Alert, Cooperative, No apparent distress, Well developed, Well nourished HEENT: Atraumatic, PERRLA, EOMI, Normocephalic Oral: Moist Mucosa Neck: Supple, No JVD, No Nuchal Rigidity, Trachea Midline, Thyroid Normal Size and Texture Lungs: Diminished - Diminished breath sounds at the right base, Rhonchi - Scattered expiratory rhonchi bilaterally Cardiovascular: Regular rate, Regular Rhythm, Normal S1, Normal S2, No murmurs, No Ectopic Activity, PMI Normal, No rub noted, - - Patient has paced rhythm Abdomen: Bowel Sounds Present, Soft, Non Tender, Non-Distended, No hernias noted Extremities: Capillary Refill Less than 3 Seconds, Edema - Diffuse lower leg edema is noted bilaterally left worse than right Skin: No rashes, No breakdown Musculoskeletal: No Tenderness to Palpation of Joints or Extremities Neurological: Cranial nerves II-XII grossly intact, Neuro grossly intact, Sensory exam intact to light touch and pain Psych/Mental Status: - - Patient is alert with mild confusion Vital Signs Temp Pulse Resp BP Pulse Ox 100.3 F H 70 16 130/63 H 95 12/13/17 16:32 12/13/17 16:32 12/13/17 16:32 12/13/17 16:32 12/13/17 16:32 Oxygen Flow Rate (L/min) 2 Oxygen Delivery Method Nasal Cannula Weight: 100 kg Body Mass Index (BMI) 33.5 Intake and Output for Last 24 Hours 12/11/17 12/12/17 12/13/17 23:59 23:59 23:59 Intake Total 200 / 200 815 / 815 Output Total 550 / 550 1250 / 1250 Balance -350 / -350 -435 / -435 Laboratory Tests Past 24 Hrs 12/13/17 12/13/17 06:21 06:21 WBC 23.9 H RBC 3.17 L Hgb 9.2 L Hct 29.1 L MCV 91.8 MCH 29.0 MCHC 31.6 L RDW 14.2 RDW Differential 46.0 H Plt Count 222 MPV 9.6 Sodium 143 Potassium 4.2 Chloride 108 H Carbon Dioxide 28.0 Anion Gap 7 BUN 41 H Creatinine 2.13 H Estim Creat Clear Calc 29.44 Est GFR (MDRD) Af Amer 39 L Est GFR (MDRD) Non-Af 32 L BUN/Creatinine Ratio 19.2 Glucose 103 Calcium 8.9 Medical Necessity - Tobacco Use Smoking Status: Former smoker Assessment/Plan Active and Suspected Problems (Last Reviewed 10/02/17 @ 14:38 by Nessa Jackson) Shortness of breath (Acute) Generalized leg edema (Acute) #1 congestive heart failure-diastolic, EF 50%, patient will be admitted to PCU, echocardiogram will be obtained, IV Lasix will be given, patient will be kept on his present medications #2 right lower lobe infiltrate-in the presence of an elevated white blood cell count, I suspect this could be due to healthcare acquired pneumonia, patient was changed to cefepime today at the request of pharmacy, I will repeat the patient's white blood cell count tomorrow and monitor the patient #3 COPD-continue aerosol treatments #4 Perperiperal vascular disease #5 Alzheimer's dementia #6 Hypertension #7 A-fib-poor candidate for anticoagulation due to dementia #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
[2017-12-13] MEDS: oxyCODONE 5 MG Tablet PO (18:26)
--- NOTE | 2017-12-13 23:54 | NURSING ---
PAGED DR JURADO TO INFORM THAT PT IS C/O SOB AND THAT SOMETHING ISN'T RIGHT. CHECKED PULSE OX = 95% ON 2.5 L. 123/58, 70, 15. PT ALSO C/O FEELING HOT. ORAL TEMP 98.5. TURNED ON ROOM FAN AND REMOVED KPAD FROM HIS BACK FOR NOW. PT DENIES C/O CHEST PAIN. DOES HAVE SOME MILD BACK PAIN. PT RCVD HS DOSE OF IV LASIX 40 MG AND HAS DIURESED 700 CC THIS DEON. NEW ORDER RCVD FOR PRN AEROSOL TX'S. CPS NOTIFIED.
[2017-12-14] VITALS (14 sets, daily range): BP systolic 106–145; BP diastolic 51–74; PULSE 69–78; RESP 16–20; TEMP 36.8–38.3; O2SAT 94–98
[2017-12-14] MEDS: oxyCODONE 5 MG Tablet PO ×3 (04:34→21:12)
--- NOTE | 2017-12-14 05:55 | RAD_ITS ---
STUDY: X-RAY CHEST REASON FOR EXAM: Male, 72 years old. Shortness of breath TECHNIQUE: Single AP portable view of the chest. COMPARISON: December 13, 2017 chest x-ray FINDINGS: The lungs are underexpanded and there is persistent blunting of the costophrenic angles and lower lobe opacities. Sternal cerclage wires are present from a prior sternotomy. There is a valve prosthesis. There is an abandoned set of defibrillator leads on the left chest. There is a right-sided defibrillator in the right. Normal mediastinum and jake. Normal visualized pulmonary arteries. There is atherosclerotic calcification of the aortic arch with tortuosity. There are diffuse degenerative changes of the visualized thoracic spine. Normal visualized ribs, clavicles, and shoulders. There is no demonstrated abnormality of the visualized soft tissue structures of the upper abdomen. RAD/Chest 1 View (Portable) IMPRESSION: Right pleural effusion and atelectasis and/or consolidation. Left pleural effusion, pleural thickening and plaquing. Status post sternotomy pacemaker defibrillator. Cardiac valve prosthesis. Electronically Signed: Zeinab Yo MD at 8:37 EDT Tel , Service support ,
[2017-12-14] MEDS: Furosemide 40 MG/4 ML Vial IV ×3 (06:27→21:16)
[2017-12-14] MEDS: Heparin Injection 5,000 UNITS/ML Syringe 5000 UNITS SC ×3 (06:27→21:15)
[2017-12-14 06:40] LABS: Absolute Lymphocyte Count 0.94 X10^3/ul (0.83-4.51); Absolute Neutrophil Count 18.3 X10^3/uL (2.0-7.7); Basophil# 0.03 X10^3/uL; Basophil% 0.1 % (0-1); Eosinophil# 0.11 X10^3/uL; Eosinophils% 0.5 % (0-5); Hemoglobin 9.2 g/dl (13.0-16.5); Lymphocyte # 0.94 X10^3/ul (4.0); Lymphocyte % 4.4 % (19-41); Mean Corp Hgb Conc 31.7 g/gl (32-36); Mean Corpuscular Hgb 29.1 pg (27.0-32.0); Mean Corpuscular Volume 91.8 fL (80-94); Mean Platelet Vol. 9.2 fl (6.2-12.0); Monocyte# 1.98 X10^3/uL; Monocyte% 9.2 % (0-10); Neutrophil % 85.4 % (47-70); Platelet Count 211 K/mm3 (150-450); RBC Distribution Width CV 14.3 % (11.6-14.6); RBC Distribution Width SD 46.4 fl (35.1-43.9); Red Blood Count 3.16 M/mm3 (4.6-6.2); White Blood Count 21.4 K/mm3 (4.4-11.0)
[2017-12-14 06:43] LABS: Differential Indicated SCAN CRITERIA MET; POSITIVE COUNT NO; POSITIVE DIFFERENTIAL YES; POSITIVE MORPHOLOGY NO
[2017-12-14 06:48] LABS: Anion Gap 7 (5-15); BUN 44 mg/dL (7-18); BUN/Creat Ratio 20.9 RATIO (10-20); Chloride 105 mmol/L (98-107); Creatinine, Serum 2.11 mg/dL (0.70-1.30); EST Glomerular Filtration Rate 33 mL/min (>60); Est Glom Filt Rate - Afr Amer 40 mL/min (>60); Estimated Creatinine Clearance 29.72 ml/min; Glucose 108 mg/dL (74-106); Sodium Level 140 mmol/L (136-145)
[2017-12-14] MEDS: Albuterol 2.5 MG/3 ML VIAL.NEB. INHALATION ×3 (07:43→19:11)
[2017-12-14] MEDS: Cefepime 1 GM in 0.9% NS 50 ML Minibag Q12 IV ×2 (09:40→21:16)
--- NOTE | 2017-12-14 20:48 | PCM.PROGNOTE ---
Patient Problems: Active and Suspected Problems (Last Reviewed 10/02/17 @ 14:38 by Nessa Jackson) Shortness of breath (Acute) Generalized leg edema (Acute) Subjective: Patient seen and examined today, he does not appear to be in any distress, he remains in paced rhythm with an underlying atrial fibrillation. Patient's chest x-ray today showed a right pleural effusion and atelectasis and/or consolidation continuing, there was some left pleural effusion noted. Patient still has elevated white blood cell count, patient's high temp today was 99.6. 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 Patient continues to diurese at a slow pace, there is still edema in the patient's legs, according the patient's family, patient was due to have his sutures removed from his leg on Friday of this week, [facility] which I reviewed stating that no one but the vascular surgeon should take the patient's sutures out. - Physical Exam General: Alert, Cooperative, No apparent distress, Well developed HEENT: Atraumatic, PERRLA, EOMI, Normocephalic Oral: Moist Mucosa Neck: Supple, No JVD, No Nuchal Rigidity, Trachea Midline, Thyroid Normal Size and Texture Lungs: No rhonchi, No wheeze, Diminished - Diminished breath sounds at the right base, Rales - Inspiratory rales at the right base Cardiovascular: Regular rate, Regular Rhythm, Normal S1, Normal S2, No murmurs, - - Paced rhythm Abdomen: Bowel Sounds Present, Soft, Non Tender, Non-Distended Extremities: No clubbing, No cyanosis, Capillary Refill Less than 3 Seconds, Edema - Generalized edema is noted over the lower legs-this is improved from admission but slightly Skin: No rashes, Incision - There is a healing incision noted over the patient's left lower leg with sutures in place, - - A right forefoot amputation is noted with adequate healing and no drainage Neurological: Cranial nerves II-XII grossly intact, Neuro grossly intact, Sensory exam intact to light touch and pain Psych/Mental Status: - - Patient is alert, he responds appropriately to some questions but is confused Vital Signs Temp Pulse Resp BP Pulse Ox 99.6 F H 72 16 145/74 H 95 12/14/17 15:20 12/14/17 19:10 12/14/17 19:10 12/14/17 15:20 12/14/17 19:10 Oxygen Flow Rate (L/min) 3 Oxygen Delivery Method Nasal Cannula Weight: 98.7 kg Body Mass Index (BMI) 33.5 Intake and Output for Last 24 Hours 12/12/17 12/13/17 12/14/17 23:59 23:59 23:59 Intake Total 200 / 200 1145 / 1145 1548 / 1548 Output Total 550 / 550 1250 / 1250 2675 / 2675 Balance -350 / -350 -105 / -105 -1127 / -1127 Laboratory Tests Past 24 Hrs 12/14/17 12/14/17 06:03 06:03 WBC 21.4 H RBC 3.16 L Hgb 9.2 L Hct 29.0 L MCV 91.8 MCH 29.1 MCHC 31.7 L RDW 14.3 RDW Differential 46.4 H Plt Count 211 MPV 9.2 Immature Gran % (Auto) 0.400 Neut % (Auto) 85.4 H Lymph % (Auto) 4.4 L [place] % (Auto) 9.2 Eos % (Auto) 0.5 Baso % (Auto) 0.1 Absolute Neuts (auto) 18.3 H Absolute Lymphs (auto) 0.94 Total Counted Not Reportable Diff Path Review December Sodium 140 Potassium 4.0 Chloride 105 Carbon Dioxide 28.0 Anion Gap 7 BUN 44 H Creatinine 2.11 H Estim Creat Clear Calc 29.72 Est GFR (MDRD) Af Amer 40 L Est GFR (MDRD) Non-Af 33 L BUN/Creatinine Ratio 20.9 H Glucose 108 H Calcium 9.0 Medical Necessity - Tobacco Use Smoking Status: Former smoker Tobacco Use: Non-smoker Assessment/Plan Active and Suspected Problems (Last Reviewed 10/02/17 @ 14:38 by Nessa Jackson) Shortness of breath (Acute) Generalized leg edema (Acute) #1 congestive heart failure-diastolic, EF 50%, continue IV Lasix at this time, patient is diuresing but slowly, patient's creatinine is elevated slightly from yesterday, I am reluctant to increase the patient's Lasix #2 right lower lobe infiltrate-in the presence of an elevated white blood cell count, I suspect this could be due to healthcare acquired pneumonia, patient's white count has not declined however, I have decided to have infectious diseases see the patient to evaluate whether he does have a pneumonia in the right lower lobe #3 COPD-continue aerosol treatments #4 Perperiperal vascular disease #5 Alzheimer's dementia #6 Hypertension #7 A-fib-poor candidate for anticoagulation due to dementia #8 stage 3 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 Patient has multiple medical problems which have been outlined in my notes, he was noted to have an elevated white blood cell count and d-dimer, CTA was not attempted due to his elevated creatinine but a venous duplex scan of the legs did not show any evidence of clots. Patient was felt to have congestive heart failure and possibly a right lower lobe healthcare acquired pneumonia, he has been treated with IV antibiotics and IV Lasix. Patient's white blood cell count however has not improved, blood cultures so far are negative. Echocardiogram showed an intermediate ejection fraction of 50% with moderate pulmonary hypertension. Patient will be seen by infectious diseases tomorrow, he will need approval to go back to his nursing facility. Code Visit Inpatient E&M: 51022 Subs Hosp L2
--- NOTE | 2017-12-14 20:55 | PN_ITS ---
Patient Problems: Active and Suspected Problems (Last Reviewed 10/02/17 @ 14:38 by Nessa Jackson) Shortness of breath (Acute) Generalized leg edema (Acute) Subjective: Patient seen and examined today, he does not appear to be in any distress, he remains in paced rhythm with an underlying atrial fibrillation. Patient's chest x-ray today showed a right pleural effusion and atelectasis and/or consolidation continuing, there was some left pleural effusion noted. Patient still has elevated white blood cell count, patient's high temp today was 99.6. 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 Patient continues to diurese at a slow pace, there is still edema in the patient 's legs, according the patient's family, patient was due to have his sutures removed from his leg on Friday of this week, there are orders at the senior care which I reviewed stating that no one but the vascular surgeon should take the patient's sutures out. - Physical Exam General: Alert, Cooperative, No apparent distress, Well developed HEENT: Atraumatic, PERRLA, EOMI, Normocephalic Oral: Moist Mucosa Neck: Supple, No JVD, No Nuchal Rigidity, Trachea Midline, Thyroid Normal Size and Texture Lungs: No rhonchi, No wheeze, Diminished - Diminished breath sounds at the right base, Rales - Inspiratory rales at the right base Cardiovascular: Regular rate, Regular Rhythm, Normal S1, Normal S2, No murmurs, - - Paced rhythm Abdomen: Bowel Sounds Present, Soft, Non Tender, Non-Distended Extremities: No clubbing, No cyanosis, Capillary Refill Less than 3 Seconds, Edema - Generalized edema is noted over the lower legs-this is improved from admission but slightly Skin: No rashes, Incision - There is a healing incision noted over the patient' s left lower leg with sutures in place, - - A right forefoot amputation is noted with adequate healing and no drainage Neurological: Cranial nerves II-XII grossly intact, Neuro grossly intact, Sensory exam intact to light touch and pain Psych/Mental Status: - - Patient is alert, he responds appropriately to some questions but is confused Vital Signs Temp Pulse Resp BP Pulse Ox 99.6 F H 72 16 145/74 H 95 12/14/17 15:20 12/14/17 19:10 12/14/17 19:10 12/14/17 15:20 12/14/17 19:10 Oxygen Flow Rate (L/min) 3 Oxygen Delivery Method Nasal Cannula Weight: 98.7 kg Body Mass Index (BMI) 33.5 Intake and Output for Last 24 Hours 12/12/17 12/13/17 12/14/17 23:59 23:59 23:59 Intake Total 200 / 200 1145 / 1145 1548 / 1548 Output Total 550 / 550 1250 / 1250 2675 / 2675 Balance -350 / -350 -105 / -105 -1127 / -1127 Laboratory Tests Past 24 Hrs 12/14/17 12/14/17 06:03 06:03 WBC 21.4 H RBC 3.16 L Hgb 9.2 L Hct 29.0 L MCV 91.8 MCH 29.1 MCHC 31.7 L RDW 14.3 RDW Differential 46.4 H Plt Count 211 MPV 9.2 Immature Gran % (Auto) 0.400 Neut % (Auto) 85.4 H Lymph % (Auto) 4.4 L [place] % (Auto) 9.2 Eos % (Auto) 0.5 Baso % (Auto) 0.1 Absolute Neuts (auto) 18.3 H Absolute Lymphs (auto) 0.94 Total Counted Not Reportable Diff Path Review December Sodium 140 Potassium 4.0 Chloride 105 Carbon Dioxide 28.0 Anion Gap 7 BUN 44 H Creatinine 2.11 H Estim Creat Clear Calc 29.72 Est GFR (MDRD) Af Amer 40 L Est GFR (MDRD) Non-Af 33 L BUN/Creatinine Ratio 20.9 H Glucose 108 H Calcium 9.0 Medical Necessity - Tobacco Use Smoking Status: Former smoker Tobacco Use: Non-smoker Assessment/Plan Active and Suspected Problems (Last Reviewed 10/02/17 @ 14:38 by Nessa Jackson) Shortness of breath (Acute) Generalized leg edema (Acute) #1 congestive heart failure-diastolic, EF 50%, continue IV Lasix at this time, patient is diuresing but slowly, patient's creatinine is elevated slightly from yesterday, I am reluctant to increase the patient's Lasix #2 right lower lobe infiltrate-in the presence of an elevated white blood cell count, I suspect this could be due to healthcare acquired pneumonia, patient's white count has not declined however, I have decided to have infectious diseases see the patient to evaluate whether he does have a pneumonia in the right lower lobe #3 COPD-continue aerosol treatments #4 Perperiperal vascular disease #5 Alzheimer's dementia #6 Hypertension #7 A-fib-poor candidate for anticoagulation due to dementia #8 stage 3 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 Patient has multiple medical problems which have been outlined in my notes, he was noted to have an elevated white blood cell count and d-dimer, CTA was not attempted due to his elevated creatinine but a venous duplex scan of the legs did not show any evidence of clots. Patient was felt to have congestive heart failure and possibly a right lower lobe healthcare acquired pneumonia, he has been treated with IV antibiotics and IV Lasix. Patient's white blood cell count however has not improved, blood cultures so far are negative. Echocardiogram showed an intermediate ejection fraction of 50% with moderate pulmonary hypertension. Patient will be seen by infectious diseases tomorrow, he will need approval to go back to his nursing facility. Code Visit Inpatient E&M: 68236 Subs Hosp L2
[2017-12-14] MEDS: 0.9% NaCl Peripheral Flush Adult/Peds IV (21:15)
[2017-12-15] VITALS (15 sets, daily range): BP systolic 113–137; BP diastolic 59–71; PULSE 69–94; RESP 14–20; TEMP 36.6–37.7; O2SAT 95–98
[2017-12-15] MEDS: oxyCODONE 5 MG Tablet PO ×5 (01:50→18:58)
[2017-12-15] MEDS: Heparin Injection 5,000 UNITS/ML Syringe 5000 UNITS SC ×3 (06:00→21:30)
[2017-12-15] MEDS: Furosemide 40 MG/4 ML Vial IV ×2 (06:00→14:04)
[2017-12-15] MEDS: 0.9% NaCl Peripheral Flush Adult/Peds IV ×2 (06:00→21:30)
--- NOTE | 2017-12-15 07:01 | NURSING ---
This RN reviewed charting completed by nursing manager Frank Riley and agrees with charting.
[2017-12-15] MEDS: Albuterol 2.5 MG/3 ML VIAL.NEB. INHALATION ×2 (08:03→13:17)
[2017-12-15] MEDS: Cefepime 1 GM in 0.9% NS 50 ML Minibag Q12 IV ×2 (09:57→21:30)
[2017-12-15 10:28] LABS: Pathologist Review Reviewed
--- NOTE | 2017-12-15 10:51 | CASEMGMT ---
Patient is from [facility]. He is currently there on his Medicaid. ALEJANDRINA faxed updates to [facility]. ALEJANDRINA then spoke with Kayley at [facility]. She said they are going to try for pre-cert, but patient can come back whenever he is ready. Plan: return to [facility] when ready. Yessenia DIAZ MSW
--- NOTE | 2017-12-15 13:43 | CON.PCM_ITS ---
Problem List (1) Shortness of breath Status: Acute Reason for Consult: fever Consulted by: Dr. 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 Sx progressive over 1-2 days. C/o pain in upper L calf. No sputum. Since arrival developed fever, up to 101 last despite being on cefepime. Was initially on zosyn. Still with elevated wbc. Had h/o endocarditis about a year ago but he does not know many details. Full ROS performed and neg except as noted above. - Medical History Past Medical History (Chronic Problems): Chronic Problems (Last Reviewed 10/02/17 @ 14:38 by Nessa Jackson) Atherosclerotic heart disease of [place] coronary artery without angina pectoris (Chronic) Hypertension (Chronic) Allergies/Adverse Reactions: Allergies aspirin Adverse Reaction (Intermediate, Verified 10/02/17 14:23) Unknown iodine Adverse Reaction (Unknown, Verified 10/02/17 14:23) Unknown Patient has one kidney, milieu coordinator wanted it listed as allergy Home Medications: Ambulatory Orders Medication Instructions Recorded acetaminophen 325 mg capsule 650 mg PO Q4H PRN 10/01/17 acetaminophen 650 mg rectal 650 mg RC Q4H PRN supp 10/01/17 suppository aluminum-magnesium hydroxide 225 30 ml PO Q4H PRN 10/01/17 mg-200 mg/5 mL oral suspension amlodipine 10 mg tablet 10 mg PO DAILY 10/01/17 ascorbic acid (vitamin C) 250 mg 250 mg PO DAILY 10/01/17 tablet atorvastatin 40 mg tablet 40 mg PO DAILY 10/01/17 bisacodyl 10 mg rectal suppository 10 mg RC DAILY PRN PRN 10/01/17 carvedilol 25 mg tablet 25 mg PO BID 10/01/17 clopidogrel 75 mg tablet 75 mg PO DAILY 10/01/17 ferrous sulfate 325 mg (65 mg 325 mg PO TID tab 10/01/17 iron) tablet furosemide 40 mg tablet 40 mg PO DAILY tab 10/01/17 glucagon (human recombinant) 1 mg 1 mg IM ONCE 10/01/17 injection kit ipratropium-albuterol 0.5 mg-3 3 ml INHALATION Q6H ml 10/01/17 mg(2.5 mg base)/3 mL nebulization soln levothyroxine 100 mcg capsule 100 mcg PO DAILY cap 10/01/17 lisinopril 40 mg tablet 40 mg PO DAILY 10/01/17 magnesium hydroxide 400 mg/5 mL 30 ml PO ONCE 10/01/17 oral suspension memantine 10 mg tablet 10 mg PO BID 10/01/17 mineral oil enema 118 ml RC ONCE PRN 10/01/17 multivitamin tablet 1 tab PO DAILY 10/01/17 pantoprazole 40 mg tablet,delayed 40 mg PO DAILY 10/01/17 release sennosides 8.6 mg tablet 8.6 mg PO BID 10/01/17 tamsulosin 0.4 mg capsule 0.4 mg PO DAILY 10/01/17 vitamin E (dl, acetate) 400 unit 400 unit PO DAILY 10/01/17 capsule zinc sulfate 220 mg (50 mg) capsule 220 mg PO DAILY cap 10/01/17 linagliptin 5 mg tablet 5 mg PO DAILY 10/02/17 Guaifenesin 10 ml PO PRN PRN 11/19/17 Oxycodone HCl/Acetaminophen 1 tablet PO Q4H PRN PRN 11/19/17 [Percocet 5/325] - Social History SMOKING STATUS:: Former smoker Vital Signs Temp Pulse Resp BP Pulse Ox 97.8 F 70 16 113/67 97 12/15/17 09:39 12/15/17 13:17 12/15/17 13:17 12/15/17 09:39 12/15/17 09:39 Oxygen Flow Rate (L/min) 2.5 Oxygen Delivery Method Nasal Cannula Weight: 97.7 kg Body Mass Index (BMI) 33.5 Laboratory Tests Past 24 Hrs 12/14/17 12/15/17 06:03 06:45 Diff Path Review Reviewed Magnesium 2.0 - Other Studies Radiology: [] reviewed Other Studies: [] Route of nutrition/ use of supplements: [] Nutritional Intake: [] IV Site: [] Christensen Catheter: [] - Physical Exam General: Alert, Cooperative, No apparent distress HEENT: Atraumatic, PERRLA, EOMI Neck: Supple, No Nodes Lungs: Diminished - in R base Cardiovascular: Regular rate, Murmur Abdomen: Bowel Sounds Present, Soft, Non Tender, Non-Distended Extremities: Edema Skin: Ulcer/ Wound - L calf IV Site: Peripheral, without redness Musculoskeletal: No Tenderness to Palpation of Joints or Extremities Neurological: Cranial nerves II-XII grossly intact - Assessment/Plan Antibiotics: [] Assessment/Plan: [] Active and Suspected Problems (Last Reviewed 10/02/17 @ 14:38 by Nessa Jackson) Shortness of breath (Acute) Generalized leg edema (Acute) Sepsis - fever, leukocytosis despite cefepime. Covering for suspected GNR pneumonia. Imaging shows R effusion. Would recommend pulm eval for possible thoracentesis. TTE with no veg, but has h/o endocarditis and prior tissue valve replacement. Will check repeat bcx today x2. Thank you, will follow, d/w Dr. Hunter.
[2017-12-15] MEDS: Acetaminophen 325 MG Tablet 650 MG PO (14:21)
--- NOTE | 2017-12-15 15:45 | PCM.PN.HOSP ---
Patient Problems: Active and Suspected Problems (Last Reviewed 10/02/17 @ 14:38 by Nessa Jackson) Shortness of breath (Acute) Generalized leg edema (Acute) Subjective: No shortness of breath. no chest pain. Vitals/I&O's: Vital Signs Temp Pulse Resp BP Pulse Ox 37.7 C H 70 20 H 134/59 H 98 12/15/17 15:06 12/15/17 15:38 12/15/17 15:06 12/15/17 15:06 12/15/17 15:06 Oxygen Flow Rate (L/min) 1.5 Oxygen Delivery Method Nasal Cannula Weight: 97.7 kg Body Mass Index (BMI) 33.5 Intake and Output for Last 24 Hours 12/13/17 12/14/17 12/15/17 23:59 23:59 23:59 Intake Total 1145 / 1145 1548 / 1548 561.3 / 561.3 Output Total 1250 / 1250 2675 / 2675 1800 / 1800 Balance -105 / -105 -1127 / -1127 -1238.7 / -1238.7 General: Alert, Cooperative, No apparent distress HEENT: Atraumatic, Normocephalic Neck: No Nodes, Thyroid Normal Size and Texture Lungs: Normal air movement, - - bibasilar crackles. Cardiovascular: Regular rate, Regular Rhythm, Normal S1, Normal S2, No murmurs Abdomen: Bowel Sounds Present, Soft, Non Tender, Non-Distended, No Hepato-splenomegaly Extremities: No edema, No Calf Tenderness Skin: No rashes, No breakdown Psych/Mental Status: Normal Affect, Appropriate Laboratory Results 12/14/17 06:03: Diff Path Review Reviewed 12/15/17 06:45: Magnesium 2.0 Current Medications Acetaminophen (Tylenol) 650 mg PO Q6H PRN PRN PRN Reason: MOD-SEVERE PAIN (4-10/10) Last Admin: 12/15/17 14:21 Dose: 650 mg Albuterol Sulfate (Ventolin Aerosols) 2.5 mg INHALATION Q6H.RT ELIZABETH Last Admin: 12/15/17 13:17 Dose: 2.5 mg Albuterol Sulfate (Ventolin Aerosols) 2.5 mg INHALATION Q2H PRN PRN PRN Reason: dyspnea, wheezing Last Admin: 12/13/17 23:56 Dose: 2.5 mg Furosemide (Lasix) 40 mg IV Q8 [facility] Last Admin: 12/15/17 14:04 Dose: 40 mg Heparin Sodium (Porcine) () 5,000 units SC Q8 [facility] Last Admin: 12/15/17 13:56 Dose: 5,000 units Hydralazine HCl (Apresoline Iv) 10 mg IV Q4H PRN PRN PRN Reason: SBP > 160 Cefepime HCl 1 gm/ Sodium (Chloride) 50 mls @ 100 mls/hr IV Q12 [facility] Last Admin: 12/15/17 09:57 Dose: 100 mls/hr Loperamide HCl (Imodium) 2 mg PO Q2H PRN PRN PRN Reason: loose stools Morphine Sulfate () 1 - 2 mg IV Q4H PRN PRN PRN Reason: PAIN Nutritional Formula (Lactose Free) (Ensure Enlive) 120 ml PO 4X/DAY [facility] Last Admin: 12/15/17 14:24 Dose: 120 ml Oxycodone HCl (Oxyir) 5 - 10 mg PO Q4H PRN PRN PRN Reason: SEVERE PAIN (6-10/10) Last Admin: 12/15/17 15:02 Dose: 10 mg Potassium Chloride (K-Dur) 20 meq PO BIDCM [facility] Last Admin: 12/15/17 08:05 Dose: 20 meq Sodium Chloride () 5 - 30 ml IV UD PRN PRN Reason: SALINE FLUSH Last Admin: 12/15/17 06:00 Dose: 10 ml Medical Necessity - Tobacco Use Smoking Status: Former smoker Tobacco Use: Non-smoker Assessment/Plan Active and Suspected Problems (Last Reviewed 10/02/17 @ 14:38 by Nessa Jackson) Shortness of breath (Acute) Generalized leg edema (Acute) 1. HFpEF EF 50% creatine up overall change lasix to 40 PO BID resume coreg no ACEi nor ARB given CKD/ANURAG 2. suspected gram negative pnuemonia. on cefepime ID following and recommend pulm eval for right pleural effusion to see if concern for infectious etiology given history of endocarditis pulmonary toilet 3. CKD 3 presumed chronic, but no baseline labs to review 4. DVT proph SQ heparin. Code Visit Inpatient E&M: 83590 Subs Hosp L2
--- NOTE | 2017-12-15 15:57 | PN_ITS ---
Patient Problems: Active and Suspected Problems (Last Reviewed 10/02/17 @ 14:38 by Nessa Jackson) Shortness of breath (Acute) Generalized leg edema (Acute) Subjective: No shortness of breath. no chest pain. Vitals/I&O's: Vital Signs Temp Pulse Resp BP Pulse Ox 37.7 C H 70 20 H 134/59 H 98 12/15/17 15:06 12/15/17 15:38 12/15/17 15:06 12/15/17 15:06 12/15/17 15:06 Oxygen Flow Rate (L/min) 1.5 Oxygen Delivery Method Nasal Cannula Weight: 97.7 kg Body Mass Index (BMI) 33.5 Intake and Output for Last 24 Hours 12/13/17 12/14/17 12/15/17 23:59 23:59 23:59 Intake Total 1145 / 1145 1548 / 1548 561.3 / 561.3 Output Total 1250 / 1250 2675 / 2675 1800 / 1800 Balance -105 / -105 -1127 / -1127 -1238.7 / -1238.7 General: Alert, Cooperative, No apparent distress HEENT: Atraumatic, Normocephalic Neck: No Nodes, Thyroid Normal Size and Texture Lungs: Normal air movement, - - bibasilar crackles. Cardiovascular: Regular rate, Regular Rhythm, Normal S1, Normal S2, No murmurs Abdomen: Bowel Sounds Present, Soft, Non Tender, Non-Distended, No Hepato- splenomegaly Extremities: No edema, No Calf Tenderness Skin: No rashes, No breakdown Psych/Mental Status: Normal Affect, Appropriate Laboratory Results 12/14/17 06:03: Diff Path Review Reviewed 12/15/17 06:45: Magnesium 2.0 Current Medications Acetaminophen (Tylenol) 650 mg PO Q6H PRN PRN PRN Reason: MOD-SEVERE PAIN (4-10/10) Last Admin: 12/15/17 14:21 Dose: 650 mg Albuterol Sulfate (Ventolin Aerosols) 2.5 mg INHALATION Q6H.RT ELIZABETH Last Admin: 12/15/17 13:17 Dose: 2.5 mg Albuterol Sulfate (Ventolin Aerosols) 2.5 mg INHALATION Q2H PRN PRN PRN Reason: dyspnea, wheezing Last Admin: 12/13/17 23:56 Dose: 2.5 mg Furosemide (Lasix) 40 mg IV Q8 [facility] Last Admin: 12/15/17 14:04 Dose: 40 mg Heparin Sodium (Porcine) () 5,000 units SC Q8 [facility] Last Admin: 12/15/17 13:56 Dose: 5,000 units Hydralazine HCl (Apresoline Iv) 10 mg IV Q4H PRN PRN PRN Reason: SBP > 160 Cefepime HCl 1 gm/ Sodium (Chloride) 50 mls @ 100 mls/hr IV Q12 [facility] Last Admin: 12/15/17 09:57 Dose: 100 mls/hr Loperamide HCl (Imodium) 2 mg PO Q2H PRN PRN PRN Reason: loose stools Morphine Sulfate () 1 - 2 mg IV Q4H PRN PRN PRN Reason: PAIN Nutritional Formula (Lactose Free) (Ensure Enlive) 120 ml PO 4X/DAY [facility] Last Admin: 12/15/17 14:24 Dose: 120 ml Oxycodone HCl (Oxyir) 5 - 10 mg PO Q4H PRN PRN PRN Reason: SEVERE PAIN (6-10/10) Last Admin: 12/15/17 15:02 Dose: 10 mg Potassium Chloride (K-Dur) 20 meq PO BIDCM [facility] Last Admin: 12/15/17 08:05 Dose: 20 meq Sodium Chloride () 5 - 30 ml IV UD PRN PRN Reason: SALINE FLUSH Last Admin: 12/15/17 06:00 Dose: 10 ml Medical Necessity - Tobacco Use Smoking Status: Former smoker Tobacco Use: Non-smoker Assessment/Plan Active and Suspected Problems (Last Reviewed 10/02/17 @ 14:38 by Nessa Jackson) Shortness of breath (Acute) Generalized leg edema (Acute) 1. HFpEF * EF 50% * creatine up overall * change lasix to 40 PO BID * resume coreg * no ACEi nor ARB given CKD/ANURAG 2. suspected gram negative pnuemonia. * on cefepime * ID following and recommend pulm eval for right pleural effusion to see if concern for infectious etiology given history of endocarditis * pulmonary toilet 3. CKD 3 * presumed chronic, but no baseline labs to review 4. DVT proph SQ heparin. Code Visit Inpatient E&M: 82925 Subs Hosp L2
[2017-12-15] MEDS: Furosemide 40 MG Tablet PO (17:14)
[2017-12-15] MEDS: Ipratropium/Albuterol Sulfate 3 ML AMPUL.NEB INHALATION (20:20)
[2017-12-15] MEDS: Memantine Hydrochloride 10 MG Tablet PO (21:30)
[2017-12-15] MEDS: Atorvastatin Calcium 40 MG Tablet PO (21:30)
[2017-12-15] MEDS: Carvedilol 25 MG Tablet PO (21:30)
[2017-12-15] MEDS: Senna Tablet 1 TABLET PO (21:40)
[2017-12-16] VITALS (13 sets, daily range): BP systolic 91–113; BP diastolic 50–60; PULSE 70–83; RESP 16–18; TEMP 36.3–37.6; O2SAT 94–96
[2017-12-16] MEDS: oxyCODONE 5 MG Tablet PO ×5 (01:37→21:49)
[2017-12-16 06:00] LABS: Hematocrit 26.2 % (40-54); Hemoglobin 8.3 g/dl (13.0-16.5); Mean Corp Hgb Conc 31.7 g/gl (32-36); Mean Corpuscular Hgb 28.1 pg (27.0-32.0); Mean Corpuscular Volume 88.8 fL (80-94); Mean Platelet Vol. 9.1 fl (6.2-12.0); Platelet Count 203 K/mm3 (150-450); RBC Distribution Width CV 14.2 % (11.6-14.6); RBC Distribution Width SD 46.7 fl (35.1-43.9); Red Blood Count 2.95 M/mm3 (4.6-6.2); White Blood Count 14.8 K/mm3 (4.4-11.0)
[2017-12-16 06:05] LABS: International Normalized Ratio 1.3; Prothrombin Time (Protime)PT. 15.9 SECONDS (11.7-14.9)
[2017-12-16 06:09] LABS: Scan Indicated on CBC? Y/N NO
[2017-12-16 06:12] LABS: Anion Gap 8 (5-15); BUN 55 mg/dL (7-18); BUN/Creat Ratio 25.3 RATIO (10-20); Calcium,Total 9.1 mg/dL (8.5-10.1); Chloride 103 mmol/L (98-107); Creatinine, Serum 2.17 mg/dL (0.70-1.30); EST Glomerular Filtration Rate 32 mL/min (>60); Est Glom Filt Rate - Afr Amer 38 mL/min (>60); Estimated Creatinine Clearance 28.89 ml/min; Glucose 139 mg/dL (74-106); Potassium 4.9 mmol/L (3.5-5.1); Sodium Level 138 mmol/L (136-145)
[2017-12-16 06:25] LABS: ALB/GLOB Ratio 0.6 RATIO (0.9-2.4); LDH 159 U/L (87-241); Protein, Total 6.4 g/dL (6.4-8.2)
[2017-12-16] MEDS: Heparin Injection 5,000 UNITS/ML Syringe 5000 UNITS SC ×3 (06:42→21:51)
[2017-12-16] MEDS: Levothyroxine 100 MCG Tablet PO (06:42)
[2017-12-16] MEDS: Ipratropium/Albuterol Sulfate 3 ML AMPUL.NEB INHALATION ×3 (07:08→19:26)
[2017-12-16] MEDS: Acetaminophen 325 MG Tablet 650 MG PO (08:05)
[2017-12-16] MEDS: Ferrous Sulfate 325 MG Tablet PO ×3 (08:05→16:30)
[2017-12-16] MEDS: Multivitamins,Therapeutic Tablet 1 TABLET PO (08:06)
--- NOTE | 2017-12-16 10:44 | CON.PCM_ITS ---
Problem List (1) Atrial fibrillation Status: Acute (2) Valvular heart disease Status: Acute (3) Atherosclerotic heart disease of [place] coronary artery without angina pectoris Status: Chronic (4) Hyperlipidemia Status: Acute (5) Hypertension Status: Chronic (6) Peripheral vascular disease Status: Acute Reason for Consult Date of Consultation: 12/16/17 Reason for Consultation: pleural effusion History of Present Illness: The patient is a 72 year old M With a complicated past medical history as below , presented to the ED on 12/12/17 from [place] secondary to increased shortness of breath and lower extremity edema. Patient also had pain in his left calf. Patient states he was working with physical therapy and became significantly short of breath, thought he was going to pass out or quit breathing. Patient notes he had surgery about 2 months ago on his right foot with toe amputations. He has also had recent vascular surgery on both legs with significant residual pain Patient reports possible fever and chills, however states he has dementia/Alzheimer's and it is hard for him to remember. He does note breathing treatments help his dyspnea. He denies any chest tightness, wheezing , hemoptysis, cough, or sputum production. Workup in the ER included blood work that was significant for a leukocytosis of 22,600, hemoglobin of 10.0. D-dimer is elevated at 2.76. Chloride elevated at 108, BUN 41, and creatinine 1.83. Glucose 154. Lactate was normal. Troponin was negative. Urinalysis not indicative of infection. Initial vital signs BP 162/79, pulse 71, RR 30, 99.5?F, 95% on 3 L of oxygen. Chest x-ray revealed cardiomegaly and probable CHF with small bilateral pleural effusions and bibasilar atelectasis. Lower extremity venous Doppler showed no evidence of DVT and greater saphenous veins absent bilaterally. CT the chest showed a moderate to large right pleural effusion with atelectasis and/or consolidation, mild central vascular congestion. There is left pleural thickening and plaquing. Cardiomegaly and hepatic enlargement. Evidence of old granulomatous disease involving the spleen. A repeat chest x-ray on 12/14/17 was unchanged. Blood cultures from 12/12/17 showed NG x 48 hours. Urine strep/Legionella antigens were negative. The patient was admitted to the progressive care unit for further evaluation and management. The patient has been maintained on scheduled DuoNeb aerosols and PRN albuterol. He is on oral Lasix 40 mg twice daily and Robitussin. Repeat blood cultures were drawn on 12/15/17 secondary to unresolved fevers while on cefepime and Zosyn. Patient had T high of 101.0, this morning he was 96?F. He does have a history of endocarditis about a year ago. Infectious disease has been consulted. Echocardiogram 12/13/17 showed an estimated EF of 50%, mild concentric LVH, D- shaped septum in diastole, mild TVI, RVSP estimated at 52 mmHg. NO evidence of vegetation. Pulmonary was consulted for further input and potential thoracentesis. Patient has remote smoking history, approximately 2-3 cigars a day for about 2 years when he was in his 20s. He does wear home O2 at 3 L as needed during the day and always at night. I spoke with the patient's ex- Raquel on the phone who is very involved in his care, she reports he has COPD, saw a route cdl driver in [place], Dr. Botello. Dr. Botello retired, and patient was lost in follow-up. It has been at least 10 years since the patient had pulmonary function tests. The patient also had a sleep study a long time ago and was prescribed noninvasive positive pressure ventilation. However, he was unable to afford this at the time as it costs $80-$100 a month. Raquel also states patient had CABG in 2005 and was told part of his lung was adhered to his left chest wall. He was told it might have been due to injury since he played football. He also has some left diaphragmatic dysfunction. Patient does have a history of asbestos exposure. 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 He did go to a specialty clinic for workup and followed up with his route cdl driver thereafter. It has been several years since he last saw him. Current home inhaler regimen includes DuoNeb nebulizers every 6 hours. Past Medical History Past Medical History (Chronic Problems): Chronic Problems (Last Reviewed 10/02/17 @ 14:38 by Nessa Jackson) Atherosclerotic heart disease of [place] coronary artery without angina pectoris (Chronic) Hypertension (Chronic) Allergies aspirin Adverse Reaction (Intermediate, Verified 10/02/17 14:23) Unknown iodine Adverse Reaction (Unknown, Verified 10/02/17 14:23) Unknown Patient has one kidney, summons server wanted it listed as allergy Home Medications: Ambulatory Orders Medication Instructions Recorded acetaminophen 325 mg capsule 650 mg PO Q4H PRN 10/01/17 acetaminophen 650 mg rectal 650 mg RC Q4H PRN supp 10/01/17 suppository aluminum-magnesium hydroxide 225 30 ml PO Q4H PRN 10/01/17 mg-200 mg/5 mL oral suspension amlodipine 10 mg tablet 10 mg PO DAILY 10/01/17 ascorbic acid (vitamin C) 250 mg 250 mg PO DAILY 10/01/17 tablet atorvastatin 40 mg tablet 40 mg PO DAILY 10/01/17 bisacodyl 10 mg rectal suppository 10 mg RC DAILY PRN PRN 10/01/17 carvedilol 25 mg tablet 25 mg PO BID 10/01/17 clopidogrel 75 mg tablet 75 mg PO DAILY 10/01/17 ferrous sulfate 325 mg (65 mg 325 mg PO TID tab 10/01/17 iron) tablet furosemide 40 mg tablet 40 mg PO DAILY tab 10/01/17 glucagon (human recombinant) 1 mg 1 mg IM ONCE 10/01/17 injection kit ipratropium-albuterol 0.5 mg-3 3 ml INHALATION Q6H ml 10/01/17 mg(2.5 mg base)/3 mL nebulization soln levothyroxine 100 mcg capsule 100 mcg PO DAILY cap 10/01/17 lisinopril 40 mg tablet 40 mg PO DAILY 10/01/17 magnesium hydroxide 400 mg/5 mL 30 ml PO ONCE 10/01/17 oral suspension memantine 10 mg tablet 10 mg PO BID 10/01/17 mineral oil enema 118 ml RC ONCE PRN 10/01/17 multivitamin tablet 1 tab PO DAILY 10/01/17 pantoprazole 40 mg tablet,delayed 40 mg PO DAILY 10/01/17 release sennosides 8.6 mg tablet 8.6 mg PO BID 10/01/17 tamsulosin 0.4 mg capsule 0.4 mg PO DAILY 10/01/17 vitamin E (dl, acetate) 400 unit 400 unit PO DAILY 10/01/17 capsule zinc sulfate 220 mg (50 mg) capsule 220 mg PO DAILY cap 10/01/17 linagliptin 5 mg tablet 5 mg PO DAILY 10/02/17 Guaifenesin 10 ml PO PRN PRN 11/19/17 Oxycodone HCl/Acetaminophen 1 tablet PO Q4H PRN PRN 11/19/17 [Percocet 5/325] Surgical History: - - Patient had bypass surgery on his left leg approximately 1 month ago, 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 Psychiatric History: - - Alzheimer's dementia Lives: Shelter - for rehab, otherwise with ex- Smoking Status: Former smoker - 2yr h/o cigar smoking, 1-3/day Tobacco Use: Cigars Alcohol: None Drugs: None - *Family History Maternal History Items: No pertinent history Paternal History Items: No pertinent history Review of Systems Constitutional: Reports: Chills, Fever, Weakness, Fatigue. Denies: Anorexia, Night Sweats, Weight Change Eyes: Denies: Vision Change HEENT: Reports: Hard of Hearing. Denies: Difficulty Swallowing, Nasal Congestion, Sinus Congestion, Sinus Drainage, Sore Throat Cardiovascular: Reports: Edema, Orthopnea. Denies: Chest Pain, Chest Tightness , Light Headedness, Palpitations, Paroxysmal Noc. Dyspnea, Syncope Respiratory: Reports: Shortness of breath upon exertion. Denies: Cough, Hemoptysis, Shortness of breath at rest, Sputum production, Wheezing Gastrointestinal: Denies: Abdominal Pain, Constipation, Diarrhea, Dyspepsia, Hematemesis, Hematochezia, Nausea, Melena, Vomiting Genitourinary: Reports: Frequency, Nocturia. Denies: Dysuria, Hematuria Musculoskeletal: Reports: Leg Pain - bilateral Skin: Reports: Wounds - Bilat LEs. Denies: Rash Neurological: Reports: Balance problems - uses walker, Numbness, Tingling. Denies: Change in Speech, Confusion, Focal weakness, Tremor, Seizures Psychiatric: Reports: Depression. Denies: Anxiety, Suicidal Ideations Endocrine: Denies: Change in Body Habitus, Polydipsia, Polyuria Hematologic/ Lymphatic: Reports: Anemia, Easy Bruising, Easy Bleeding. Denies: Adenopathy Patient Problems: Active and Suspected Problems (Last Reviewed 10/02/17 @ 14:38 by Nessa Jackson) Shortness of breath (Acute) Generalized leg edema (Acute) Subjective: The patient was seen and examined. He is sitting up in the chair with legs elevated, no acute distress. Maintaining appropriate saturations on 2-3 L of oxygen supplementation. Denies any cough, chest pain, current fever or chills. He has a fan on in the room. Objective: Clinical Impression(s) from Imaging Studies Chest X-Ray 12/12/17 14:41 IMPRESSION: Cardiomegaly. CHF with small bilateral pleural effusions and bibasilar atelectasis. Electronically Signed: Vadim Ortiz MD at 15:06 EDT Tel [phone], Service support , Chest CT 12/12/17 15:25 IMPRESSION: There is a moderate to large right pleural effusion with atelectasis and/or consolidation. There is mild central vascular congestion Left pleural thickening and plaquing. This may represent prior procedure and/or history of infection. Cardiomegaly pacer defibrillator leads status post sternotomy. 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 Electronically Signed: Zeinab Yo MD at 16:40 EDT Tel , Service support , Chest X-Ray 12/13/17 05:55 IMPRESSION: Stable chest bilateral effusions and lower lobe atelectasis. Cardiomegaly status post sternotomy defibrillator leads as detailed above. Electronically Signed: Zeinab Yo MD at 8:29 EDT Tel , Service support , Chest X-Ray 12/14/17 05:55 IMPRESSION: Right pleural effusion and atelectasis and/or consolidation. Left pleural effusion, pleural thickening and plaquing. Status post sternotomy pacemaker defibrillator. Cardiac valve prosthesis. Electronically Signed: Zeinab Yo MD at 8:37 EDT Tel , Service support , - Physical Exam General: Alert, Cooperative, No apparent distress, Well developed, Well nourished HEENT: Atraumatic, Normocephalic Oral: Moist Mucosa, No Gingival or Mucosal Lesions/ Ulcerations Neck: Supple, No Nodes, Trachea Midline Lungs: No rhonchi, No wheeze, No rales, Diminished, - - Symmetric expansion Cardiovascular: Regular rate, Regular Rhythm - Based, Normal S1, Normal S2, No rub noted, No Gallop, - - Pacer right chest Abdomen: Bowel Sounds Present, Soft, Non Tender, Obese Extremities: No clubbing, No cyanosis, Edema - LLE, 2+ pitting Skin: No rashes, - - sutures to Left upper and lower leg intact, small area w/ increased erythema and some drainage. sutures RLE intact. Did not visualize R foot, wrapped w/ kerlix and CHAN. Musculoskeletal: No Tenderness to Palpation of Joints or Extremities Lymphatic: No Cervical, Supraclavicular, or Inguinal Adenopathy Neurological: Cranial nerves II-XII grossly intact, Neuro grossly intact, Motor Exam 5/5 strength throughout, - - decreased sensation bilat LEs, painful Psych/Mental Status: Normal Affect, Appropriate, - - forgetful but oriented to self and year Vital Signs Temp Pulse Resp BP Pulse Ox 97.9 F 70 18 110/50 L 96 12/16/17 09:27 12/16/17 09:27 12/16/17 07:08 12/16/17 09:27 12/16/17 09:27 Oxygen Flow Rate (L/min) 2.5 Oxygen Delivery Method Nasal Cannula Weight: 215 lb 6.266 oz Body Mass Index (BMI) 33.5 Intake and Output for Last 24 Hours 12/14/17 12/15/17 12/16/17 23:59 23:59 23:59 Intake Total 1548 / 1548 1104.3 / 1104.3 100 / 100 Output Total 2675 / 2675 2300 / 2300 525 / 525 Balance -1127 / -1127 -1195.7 / -1195.7 -425 / -425 Laboratory Tests Past 24 Hrs 12/16/17 12/16/17 12/16/17 05:30 05:30 05:30 WBC 14.8 H RBC 2.95 L Hgb 8.3 L Hct 26.2 L MCV 88.8 MCH 28.1 MCHC 31.7 L RDW 14.2 RDW Differential 46.7 H Plt Count 203 MPV 9.1 PT 15.9 H INR 1.3 Sodium 138 Potassium 4.9 Chloride 103 Carbon Dioxide 27.0 Anion Gap 8 BUN 55 H Creatinine 2.17 H Estim Creat Clear Calc 28.89 Est GFR (MDRD) Af Amer 38 L Est GFR (MDRD) Non-Af 32 L BUN/Creatinine Ratio 25.3 H Glucose 139 H Calcium 9.1 Lactate Dehydrogenase Total Protein Globulin Albumin/Globulin Ratio 12/16/17 05:30 WBC RBC Hgb Hct MCV MCH MCHC RDW RDW Differential Plt Count MPV PT INR Sodium Potassium Chloride Carbon Dioxide Anion Gap BUN Creatinine Estim Creat Clear Calc Est GFR (MDRD) Af Amer Est GFR (MDRD) Non-Af BUN/Creatinine Ratio Glucose Calcium Lactate Dehydrogenase 159 Total Protein 6.4 Globulin 4.0 Albumin/Globulin Ratio 0.6 L Assessment/Plan Active and Suspected Problems (Last Reviewed 10/02/17 @ 14:38 by Nessa Jackson) Shortness of breath (Acute) Generalized leg edema (Acute) RECOMMENDATIONS 1. Wean oxygen supplementation to keep saturations 88-92%. 2. Encourage incentive spirometer and Acapella 3. Increase activity as tolerated, restart PT/OT 4. Continue bronchodilators 5. BiPAP at night and PRN during day 6. Unable to do thoracentesis secondary to Plavix 7. Continue volume optimization as tolerated 8. Continue antibiotics per ID. IMPRESSIONS 1. Right pleural effusion/left pleural plaques Chest CT showing moderate to large right pleural effusion with atelectasis and/ or consolidation and central vascular congestion. Patient with persistent leukocytosis and fevers, however today is improving. Lactate not elevated. Infectious disease following. Patient currently on cefepime, initially Zosyn. History of endocarditis about a year ago requiring extended IV antibiotics and snf placement. Patient diuresed with IV Lasix, changed to oral on secondary to renal dysfunction. Cumulative fluid balance of -3042 mL as of now. Lower extremity edema improved per primary service report. Remains hemodynamically stable. Patient would benefit from diagnostic/therapeutic thoracentesis, however he is on Plavix. He appears to be improving clinically so would hold off on thoracentesis for now. Could be considered for next week if symptoms persist or if repeat chest imaging indicates persistent or worsening effusion. If considering thoracentesis, would need to be off Plavix for 5 days prior. Continue with volume optimization as tolerated, does have some renal dysfunction. Pleural plaques seen on the left could be a result of prior infection vs asbestos exposure, patient does have history and had prior workup. These results are not available to me. Would repeat imaging in 4-6 weeks. 2. Congestive heart failure Improved after diuresis. Lasix de-escalated 12/16. BiPAP may help with dyspnea. 3. 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 Former patient of Dr. Botello through [facility]. No PFTs for several years. Had prior workup at asbestos clinic, who indicated to the patient and his ex- that he had a level of asbestosis. No further treatment pursued. Patient also had sleep study several years ago, could not afford Pap machine. He would benefit from repeat testing, if desired. 3. History of atrial fibrillation/hyperlipidemia/HTN/peripheral vascular disease/valvular heart disease/pacemaker Complicates care, management, recovery, and prognosis. Patient no longer on anticoagulation per NADIA García. Does take Plavix. Continue home medications as indicated. Discussed CODE STATUS with Raquel ZUNIGA. She indicates patient would want temporary ventilator, if needed. She is agreeable to DNR CCA for the time being. She is to come to the hospital with her daughter on 12/17 with paperwork. Thank you for the opportunity to participate in this patient's care, please do not hesitate contact us with any further questions or concerns. This note was generated with [employer] dictation software. It may contain incorrect words, spelling, and punctuation that were not noted in checking the note before signing.
[2017-12-16] MEDS: Vitamin E 400 UNITS Capsule PO (10:49)
[2017-12-16] MEDS: Cefepime 1 GM in 0.9% NS 50 ML Minibag Q12 IV ×2 (10:49→21:50)
[2017-12-16] MEDS: Furosemide 40 MG Tablet PO ×2 (10:49→17:19)
[2017-12-16] MEDS: amLODIPine 10 MG Tablet PO (10:49)
[2017-12-16] MEDS: Clopidogrel Bisulfate 75 MG Tablet PO (10:50)
[2017-12-16] MEDS: Carvedilol 25 MG Tablet PO ×2 (10:50→21:51)
[2017-12-16] MEDS: Pantoprazole Sodium 40 MG Tablet PO (10:50)
[2017-12-16] MEDS: Memantine Hydrochloride 10 MG Tablet PO ×2 (10:50→21:50)
[2017-12-16] MEDS: Senna Tablet 1 TABLET PO ×2 (10:51→21:55)
[2017-12-16] MEDS: Tamsulosin HCl 0.4 MG Capsule PO (10:53)
[2017-12-16] MEDS: 0.9% NaCl Peripheral Flush Adult/Peds IV ×2 (10:56→21:50)
--- NOTE | 2017-12-16 11:30 | PCM.PN.ID ---
Patient Problems: Active and Suspected Problems (Last Reviewed 10/02/17 @ 14:38 by Nessa Jackson) Shortness of breath (Acute) Generalized leg edema (Acute) Subjective: Feeling ok, leg less sore and red. no fever, no abd pain. - Physical Exam General: Alert, Cooperative, No apparent distress Lungs: Diminished Cardiovascular: Regular rate, Regular Rhythm Abdomen: Soft, Non Tender, Non-Distended Extremities: Edema Skin: Incision - L lower leg, improving pain and redness Vital Signs Temp Pulse Resp BP Pulse Ox 97.9 F 70 18 110/50 L 96 12/16/17 09:27 12/16/17 09:27 12/16/17 07:08 12/16/17 09:27 12/16/17 09:27 Oxygen Flow Rate (L/min) 2.5 Oxygen Delivery Method Nasal Cannula Weight: 97.7 kg Body Mass Index (BMI) 33.5 Intake and Output for Last 24 Hours 12/14/17 12/15/17 12/16/17 23:59 23:59 23:59 Intake Total 1548 / 1548 1104.3 / 1104.3 100 / 100 Output Total 2675 / 2675 2300 / 2300 525 / 525 Balance -1127 / -1127 -1195.7 / -1195.7 -425 / -425 Laboratory Tests Past 24 Hrs 12/16/17 12/16/17 12/16/17 05:30 05:30 05:30 WBC 14.8 H RBC 2.95 L Hgb 8.3 L Hct 26.2 L MCV 88.8 MCH 28.1 MCHC 31.7 L RDW 14.2 RDW Differential 46.7 H Plt Count 203 MPV 9.1 PT 15.9 H INR 1.3 Sodium 138 Potassium 4.9 Chloride 103 Carbon Dioxide 27.0 Anion Gap 8 BUN 55 H Creatinine 2.17 H Estim Creat Clear Calc 28.89 Est GFR (MDRD) Af Amer 38 L Est GFR (MDRD) Non-Af 32 L BUN/Creatinine Ratio 25.3 H Glucose 139 H Calcium 9.1 Lactate Dehydrogenase Total Protein Globulin Albumin/Globulin Ratio 12/16/17 05:30 WBC RBC Hgb Hct MCV MCH MCHC RDW RDW Differential Plt Count MPV PT INR Sodium Potassium Chloride Carbon Dioxide Anion Gap BUN Creatinine Estim Creat Clear Calc Est GFR (MDRD) Af Amer Est GFR (MDRD) Non-Af BUN/Creatinine Ratio Glucose Calcium Lactate Dehydrogenase 159 Total Protein 6.4 Globulin 4.0 Albumin/Globulin Ratio 0.6 L Medical Necessity - Tobacco Use Smoking Status: Former smoker Tobacco Use: Non-smoker Route of nutrition/ use of supplements: [] Nutritional Intake: [] IV Site: [] Christensen Catheter: [] - Assessment/Plan Antibiotics: [] Assessment/Plan: [] Active and Suspected Problems (Last Reviewed 10/02/17 @ 14:38 by Nessa Jackson) Shortness of breath (Acute) Generalized leg edema (Acute) Sepsis - No fever and wbc improved. On cefepime for suspected GNR pneumonia. Imaging shows R effusion. Pulm eval pending. TTE with no veg, but has h/o endocarditis and prior tissue valve replacement. will follow
--- NOTE | 2017-12-16 13:08 | NURSING ---
spoke with vasu García patient is to have sutures to left leg removed tomorrow. Dr. Meade at [place] [facility] [phone] did vascular surgery and Dr. Delgadillo did toe amputation .
--- NOTE | 2017-12-16 14:47 | PCM.PN.HOSP ---
Patient Problems: Active and Suspected Problems (Last Reviewed 10/02/17 @ 14:38 by Nessa Jackson) Shortness of breath (Acute) Generalized leg edema (Acute) Subjective: Feeling better. No shortness of breath. Vitals/I&O's: Vital Signs Temp Pulse Resp BP Pulse Ox 36.6 C 70 18 110/50 L 96 12/16/17 09:27 12/16/17 13:24 12/16/17 13:24 12/16/17 09:27 12/16/17 09:27 Oxygen Flow Rate (L/min) 2.5 Oxygen Delivery Method Nasal Cannula Weight: 97.7 kg Body Mass Index (BMI) 33.5 Intake and Output for Last 24 Hours 12/14/17 12/15/17 12/16/17 23:59 23:59 23:59 Intake Total 1548 / 1548 1104.3 / 1104.3 810 / 810 Output Total 2675 / 2675 2300 / 2300 1075 / 1075 Balance -1127 / -1127 -1195.7 / -1195.7 -265 / -265 General: Alert HEENT: Atraumatic, Normocephalic Neck: No Nodes, Thyroid Normal Size and Texture Lungs: Clear to auscultation, Normal air movement, No rhonchi, No wheeze, - - bibasilar crackles Cardiovascular: Regular rate, Regular Rhythm, Normal S1, Normal S2 Abdomen: Bowel Sounds Present, Soft, Non Tender, Non-Distended Extremities: No edema, No Calf Tenderness Psych/Mental Status: Normal Affect, Appropriate Laboratory Results 12/16/17 05:30: WBC 14.8 H, RBC 2.95 L, Hgb 8.3 L, Hct 26.2 L, MCV 88.8, MCH 28.1, MCHC 31.7 L, RDW 14.2, RDW Differential 46.7 H, Plt Count 203, MPV 9.1 12/16/17 05:30: PT 15.9 H, INR 1.3 12/16/17 05:30: Sodium 138, Potassium 4.9, Chloride 103, Carbon Dioxide 27.0, Anion Gap 8, BUN 55 H, Creatinine 2.17 H, Estim Creat Clear Calc 28.89, Est GFR (MDRD) Af Amer 38 L, Est GFR (MDRD) Non-Af 32 L, BUN/Creatinine Ratio 25.3 H, Glucose 139 H, Calcium 9.1 12/16/17 05:30: Lactate Dehydrogenase 159, Total Protein 6.4, Globulin 4.0, Albumin/Globulin Ratio 0.6 L Current Medications Acetaminophen (Tylenol) 650 mg PO Q6H PRN PRN PRN Reason: MOD-SEVERE PAIN (4-10/10) Last Admin: 12/16/17 08:05 Dose: 650 mg Albuterol Sulfate (Ventolin Aerosols) 2.5 mg INHALATION Q2H PRN PRN PRN Reason: dyspnea, wheezing Last Admin: 12/13/17 23:56 Dose: 2.5 mg Albuterol/Ipratropium (Duoneb) 3 ml INHALATION Q6H.RT [facility] Last Admin: 12/16/17 13:23 Dose: 3 ml Amlodipine Besylate (Norvasc) 10 mg PO DAILY [facility] Last Admin: 12/16/17 10:49 Dose: 10 mg Atorvastatin Calcium (Lipitor) 40 mg PO QHS [facility] Last Admin: 12/15/17 21:30 Dose: 40 mg Carvedilol (Coreg) 25 mg PO BID [facility] Last Admin: 12/16/17 10:50 Dose: 25 mg Clopidogrel Bisulfate (Plavix) 75 mg PO DAILY [facility] Last Admin: 12/16/17 10:50 Dose: 75 mg Ferrous Sulfate (Ferrous Sulfate) 325 mg PO TIDCM [facility] Last Admin: 12/16/17 11:02 Dose: 325 mg Furosemide (Lasix) 40 mg PO BID@1000,1800 [facility] Last Admin: 12/16/17 10:49 Dose: 40 mg Guaifenesin (Robitussin) 10 ml PO Q4H PRN PRN PRN Reason: COUGH Heparin Sodium (Porcine) () 5,000 units SC Q8 [facility] Last Admin: 12/16/17 13:44 Dose: 5,000 units Hydralazine HCl (Apresoline Iv) 10 mg IV Q4H PRN PRN PRN Reason: SBP > 160 Cefepime HCl 1 gm/ Sodium (Chloride) 50 mls @ 100 mls/hr IV Q12 [facility] Last Admin: 12/16/17 10:49 Dose: 100 mls/hr Levothyroxine Sodium (Synthroid) 100 mcg PO DAILY@0600 [facility] Last Admin: 12/16/17 06:42 Dose: 100 mcg Loperamide HCl (Imodium) 2 mg PO Q2H PRN PRN PRN Reason: loose stools Magnesium Hydroxide (Milk Of Magnesia) 30 ml PO .X1 PRN PRN Memantine (Namenda) 10 mg PO BID [facility] Last Admin: 12/16/17 10:50 Dose: 10 mg Multivitamins (Multivitamin) 1 tablet PO DAILY@0800 [facility] Last Admin: 12/16/17 08:06 Dose: 1 tablet Nutritional Formula (Lactose Free) (Ensure Enlive) 120 ml PO 4X/DAY [facility] Last Admin: 12/16/17 13:44 Dose: 120 ml Oxycodone HCl (Oxyir) 5 - 10 mg PO Q4H PRN PRN PRN Reason: SEVERE PAIN (6-06/10) Last Admin: 12/16/17 10:58 Dose: 10 mg Pantoprazole Sodium (Protonix) 40 mg PO DAILY [facility] Last Admin: 12/16/17 10:50 Dose: 40 mg [facility]assium [facility] ([facility]) [facility] Last Admin: 12/16/17 08:05 Dose: 20 meq Senna (Senokot) 1 tablet PO BID [facility] Last Admin: 12/16/17 10:51 Dose: 1 tablet Sodium Chloride () 5 - 30 ml IV UD PRN PRN Reason: SALINE FLUSH Last Admin: 12/16/17 10:56 Dose: 20 ml Tamsulosin HCl (Flomax) 0.4 mg PO DAILY [facility] Last Admin: 12/16/17 10:53 Dose: 0.4 mg Vitamin E (Vitamin E) 400 units PO DAILY [facility] Last Admin: 12/16/17 10:49 Dose: 400 units Zinc Sulfate (Zinc Sulfate) 220 mg PO DAILY [facility] Last Admin: 12/16/17 10:50 Dose: 220 mg Medical Necessity - Tobacco Use Smoking Status: Former smoker - 2yr h/o cigar smoking, 1-3/day Tobacco Use: Cigars Assessment/Plan Active and Suspected Problems (Last Reviewed 10/02/17 @ 14:38 by Nessa Jackson) Shortness of breath (Acute) Generalized leg edema (Acute) 1. HFpEF EF 50% creatine up overall change lasix to 40 PO BID resume coreg no ACEi nor ARB given CKD/ANURAG 2. suspected gram negative pnuemonia. on cefepime ID following and recommend pulm eval for right pleural effusion to see if concern for infectious etiology given history of endocarditis pulmonary toilet cultures negative. 3. CKD 3 presumed chronic, but no baseline labs to review 4. Pleural effusion: hold off on thoracentesis given clinical improvement follow up CXR in 1 month. 5. DVT proph SQ heparin. Code Visit Inpatient E&M: 96198 Subs Hosp L2
--- NOTE | 2017-12-16 14:51 | PN_ITS ---
Patient Problems: Active and Suspected Problems (Last Reviewed 10/02/17 @ 14:38 by Nessa Jackson) Shortness of breath (Acute) Generalized leg edema (Acute) Subjective: Feeling better. No shortness of breath. Vitals/I&O's: Vital Signs Temp Pulse Resp BP Pulse Ox 36.6 C 70 18 110/50 L 96 12/16/17 09:27 12/16/17 13:24 12/16/17 13:24 12/16/17 09:27 12/16/17 09:27 Oxygen Flow Rate (L/min) 2.5 Oxygen Delivery Method Nasal Cannula Weight: 97.7 kg Body Mass Index (BMI) 33.5 Intake and Output for Last 24 Hours 12/14/17 12/15/17 12/16/17 23:59 23:59 23:59 Intake Total 1548 / 1548 1104.3 / 1104.3 810 / 810 Output Total 2675 / 2675 2300 / 2300 1075 / 1075 Balance -1127 / -1127 -1195.7 / -1195.7 -265 / -265 General: Alert HEENT: Atraumatic, Normocephalic Neck: No Nodes, Thyroid Normal Size and Texture Lungs: Clear to auscultation, Normal air movement, No rhonchi, No wheeze, - - bibasilar crackles Cardiovascular: Regular rate, Regular Rhythm, Normal S1, Normal S2 Abdomen: Bowel Sounds Present, Soft, Non Tender, Non-Distended Extremities: No edema, No Calf Tenderness Psych/Mental Status: Normal Affect, Appropriate Laboratory Results 12/16/17 05:30: WBC 14.8 H, RBC 2.95 L, Hgb 8.3 L, Hct 26.2 L, MCV 88.8, MCH 28.1, MCHC 31.7 L, RDW 14.2, RDW Differential 46.7 H, Plt Count 203, MPV 9.1 12/16/17 05:30: PT 15.9 H, INR 1.3 12/16/17 05:30: Sodium 138, Potassium 4.9, Chloride 103, Carbon Dioxide 27.0, Anion Gap 8, BUN 55 H, Creatinine 2.17 H, Estim Creat Clear Calc 28.89, Est GFR (MDRD) Af Amer 38 L, Est GFR (MDRD) Non-Af 32 L, BUN/Creatinine Ratio 25.3 H, Glucose 139 H, Calcium 9.1 12/16/17 05:30: Lactate Dehydrogenase 159, Total Protein 6.4, Globulin 4.0, Albumin/Globulin Ratio 0.6 L Current Medications Acetaminophen (Tylenol) 650 mg PO Q6H PRN PRN PRN Reason: MOD-SEVERE PAIN (4-10/10) Last Admin: 12/16/17 08:05 Dose: 650 mg Albuterol Sulfate (Ventolin Aerosols) 2.5 mg INHALATION Q2H PRN PRN PRN Reason: dyspnea, wheezing Last Admin: 12/13/17 23:56 Dose: 2.5 mg Albuterol/Ipratropium (Duoneb) 3 ml INHALATION Q6H.RT [facility] Last Admin: 12/16/17 13:23 Dose: 3 ml Amlodipine Besylate (Norvasc) 10 mg PO DAILY [facility] Last Admin: 12/16/17 10:49 Dose: 10 mg Atorvastatin Calcium (Lipitor) 40 mg PO QHS [facility] Last Admin: 12/15/17 21:30 Dose: 40 mg Carvedilol (Coreg) 25 mg PO BID [facility] Last Admin: 12/16/17 10:50 Dose: 25 mg Clopidogrel Bisulfate (Plavix) 75 mg PO DAILY [facility] Last Admin: 12/16/17 10:50 Dose: 75 mg Ferrous Sulfate (Ferrous Sulfate) 325 mg PO TIDCM [facility] Last Admin: 12/16/17 11:02 Dose: 325 mg Furosemide (Lasix) 40 mg PO BID@1000,1800 [facility] Last Admin: 12/16/17 10:49 Dose: 40 mg Guaifenesin (Robitussin) 10 ml PO Q4H PRN PRN PRN Reason: COUGH Heparin Sodium (Porcine) () 5,000 units SC Q8 [facility] Last Admin: 12/16/17 13:44 Dose: 5,000 units Hydralazine HCl (Apresoline Iv) 10 mg IV Q4H PRN PRN PRN Reason: SBP > 160 Cefepime HCl 1 gm/ Sodium (Chloride) 50 mls @ 100 mls/hr IV Q12 [facility] Last Admin: 12/16/17 10:49 Dose: 100 mls/hr Levothyroxine Sodium (Synthroid) 100 mcg PO DAILY@0600 [facility] Last Admin: 12/16/17 06:42 Dose: 100 mcg Loperamide HCl (Imodium) 2 mg PO Q2H PRN PRN PRN Reason: loose stools Magnesium Hydroxide (Milk Of Magnesia) 30 ml PO .X1 PRN PRN Memantine (Namenda) 10 mg PO BID [facility] Last Admin: 12/16/17 10:50 Dose: 10 mg Multivitamins (Multivitamin) 1 tablet PO DAILY@0800 [facility] Last Admin: 12/16/17 08:06 Dose: 1 tablet Nutritional Formula (Lactose Free) (Ensure Enlive) 120 ml PO 4X/DAY [facility] Last Admin: 12/16/17 13:44 Dose: 120 ml Oxycodone HCl (Oxyir) 5 - 10 mg PO Q4H PRN PRN PRN Reason: SEVERE PAIN (6-06/10) Last Admin: 12/16/17 10:58 Dose: 10 mg Pantoprazole Sodium (Protonix) 40 mg PO DAILY [facility] Last Admin: 12/16/17 10:50 Dose: 40 mg Potassium [facility] ([facility]) [facility] Last Admin: 12/16/17 08:05 Dose: 20 meq Senna (Senokot) 1 tablet PO BID [facility] Last Admin: 12/16/17 10:51 Dose: 1 tablet Sodium Chloride () 5 - 30 ml IV UD PRN PRN Reason: SALINE FLUSH Last Admin: 12/16/17 10:56 Dose: 20 ml Tamsulosin HCl (Flomax) 0.4 mg PO DAILY [facility] Last Admin: 12/16/17 10:53 Dose: 0.4 mg Vitamin E (Vitamin E) 400 units PO DAILY [facility] Last Admin: 12/16/17 10:49 Dose: 400 units Zinc Sulfate (Zinc Sulfate) 220 mg PO DAILY [facility] Last Admin: 12/16/17 10:50 Dose: 220 mg Medical Necessity - Tobacco Use Smoking Status: Former smoker - 2yr h/o cigar smoking, 1-3/day Tobacco Use: Cigars Assessment/Plan Active and Suspected Problems (Last Reviewed 10/02/17 @ 14:38 by Nessa Jackson) Shortness of breath (Acute) Generalized leg edema (Acute) 1. HFpEF * EF 50% * creatine up overall * change lasix to 40 PO BID * resume coreg * no ACEi nor ARB given CKD/ANURAG 2. suspected gram negative pnuemonia. * on cefepime * ID following and recommend pulm eval for right pleural effusion to see if concern for infectious etiology given history of endocarditis * pulmonary toilet * cultures negative. 3. CKD 3 * presumed chronic, but no baseline labs to review 4. Pleural effusion: * hold off on thoracentesis given clinical improvement * follow up CXR in 1 month. 5. DVT proph SQ heparin. Code Visit Inpatient E&M: 44724 Subs Hosp L2
[2017-12-16] MEDS: Atorvastatin Calcium 40 MG Tablet PO (21:50)
--- NOTE | 2017-12-16 23:37 | CPS ---
Pt does not wear PAP at home, instead wears nocturnal oxygen
[2017-12-17] VITALS (14 sets, daily range): BP systolic 97–116; BP diastolic 57–66; PULSE 70–79; RESP 16–20; TEMP 36.3–37.3; O2SAT 93–98
[2017-12-17] MEDS: Ipratropium/Albuterol Sulfate 3 ML AMPUL.NEB INHALATION ×4 (01:01→19:31)
[2017-12-17] MEDS: Heparin Injection 5,000 UNITS/ML Syringe 5000 UNITS SC ×3 (06:25→22:19)
[2017-12-17] MEDS: Levothyroxine 100 MCG Tablet PO (06:26)
[2017-12-17] MEDS: oxyCODONE 5 MG Tablet PO ×2 (06:26→10:51)
[2017-12-17 06:43] LABS: Hematocrit 27.2 % (40-54); Hemoglobin 8.7 g/dl (13.0-16.5); Mean Corpuscular Hgb 28.9 pg (27.0-32.0); Mean Corpuscular Volume 90.4 fL (80-94); Mean Platelet Vol. 9.2 fl (6.2-12.0); Platelet Count 234 K/mm3 (150-450); RBC Distribution Width CV 13.9 % (11.6-14.6); RBC Distribution Width SD 44.8 fl (35.1-43.9); Red Blood Count 3.01 M/mm3 (4.6-6.2); White Blood Count 12.7 K/mm3 (4.4-11.0)
[2017-12-17 06:47] LABS: Scan Indicated on CBC? Y/N NO
[2017-12-17 07:02] LABS: Anion Gap 10 (5-15); BUN 72 mg/dL (7-18); BUN/Creat Ratio 31.3 RATIO (10-20); Calcium,Total 9.4 mg/dL (8.5-10.1); Chloride 103 mmol/L (98-107); EST Glomerular Filtration Rate 30 mL/min (>60); Est Glom Filt Rate - Afr Amer 36 mL/min (>60); Estimated Creatinine Clearance 27.26 ml/min; Glucose 116 mg/dL (74-106); Potassium 5.1 mmol/L (3.5-5.1); Sodium Level 138 mmol/L (136-145)
--- NOTE | 2017-12-17 08:52 | CASEMGMT ---
ALEJANDRINA faxed updates to Benito. Plan: [facility] MORRIS
[2017-12-17] MEDS: Ferrous Sulfate 325 MG Tablet PO ×3 (09:13→17:51)
[2017-12-17] MEDS: Multivitamins,Therapeutic Tablet 1 TABLET PO (09:13)
[2017-12-17] MEDS: Clopidogrel Bisulfate 75 MG Tablet PO (09:14)
[2017-12-17] MEDS: Furosemide 40 MG Tablet PO ×2 (09:14→17:52)
[2017-12-17] MEDS: amLODIPine 10 MG Tablet PO (09:14)
[2017-12-17] MEDS: Memantine Hydrochloride 10 MG Tablet PO ×2 (09:14→22:19)
[2017-12-17] MEDS: Pantoprazole Sodium 40 MG Tablet PO (09:14)
[2017-12-17] MEDS: Tamsulosin HCl 0.4 MG Capsule PO (09:14)
[2017-12-17] MEDS: Carvedilol 25 MG Tablet PO ×2 (09:14→22:19)
[2017-12-17] MEDS: Senna Tablet 1 TABLET PO ×2 (09:15→22:19)
[2017-12-17] MEDS: Vitamin E 400 UNITS Capsule PO (09:15)
--- NOTE | 2017-12-17 10:14 | PCM.PROGNOTE ---
Patient Problems: Active and Suspected Problems (Last Reviewed 10/02/17 @ 14:38 by Nessa Jackson) Shortness of breath (Acute) Generalized leg edema (Acute) Subjective: The patient was seen and examined. Reports his breathing is fine. His left lower extremity is more painful and throbbing today, states has more swelling. Objective: Recent lab and culture data reviewed. Patient has been weaned to 2 L of oxygen supplementation. T high yesterday 99.9?F, this morning he is 99.2?F. Leukocytosis continues to improve. Kidney function is worse. Blood cultures from 12/15 are still pending. Cumulative fluid balance -3647. Weight has increased 5 pounds since the . - Physical Exam General: Alert, - - oriented to self and place. No conversational dyspnea HEENT: Atraumatic, Normocephalic Oral: Moist Mucosa Neck: Supple, No Nodes, Trachea Midline Lungs: No rhonchi, No wheeze, No rales, Diminished, - - no dullness to percussion Cardiovascular: Regular rate, Regular Rhythm - paced, Normal S1, Normal S2 Abdomen: Bowel Sounds Present, Soft, Non Tender, Obese Extremities: No clubbing, No cyanosis, Edema - increased LLE edema, third spacing. some erythema Skin: - - no significant changes from previous, does have more edema LLE and drainage on R foot dressing Musculoskeletal: Tenderness - LLE Lymphatic: - - no adenopathy Neurological: Cranial nerves II-XII grossly intact, Neuro grossly intact, Motor Exam 5/5 strength throughout Psych/Mental Status: - - painful. Cooperative and forgetful Vital Signs Temp Pulse Resp BP Pulse Ox 97.4 F L 70 16 111/59 L 94 12/17/17 08:46 12/17/17 08:46 12/17/17 08:46 12/17/17 08:46 12/17/17 08:46 Oxygen Flow Rate (L/min) 3 Oxygen Delivery Method Nasal Cannula Weight: 220 lb 14.451 oz Body Mass Index (BMI) 33.5 Intake and Output for Last 24 Hours 12/15/17 12/16/17 12/17/17 23:59 23:59 23:59 Intake Total 1104.3 / 1104.3 1335 / 1335 470 / 470 Output Total 2300 / 2300 1925 / 1925 750 / 750 Balance -1195.7 / -1195.7 -590 / -590 -280 / -280 Laboratory Tests Past 24 Hrs 12/17/17 12/17/17 06:25 06:25 WBC 12.7 H RBC 3.01 L Hgb 8.7 L Hct 27.2 L MCV 90.4 MCH 28.9 MCHC 32.0 RDW 13.9 RDW Differential 44.8 H Plt Count 234 MPV 9.2 Sodium 138 Potassium 5.1 Chloride 103 Carbon Dioxide 25.0 Anion Gap 10 BUN 72 H Creatinine 2.30 H Estim Creat Clear Calc 27.26 Est GFR (MDRD) Af Amer 36 L Est GFR (MDRD) Non-Af 30 L BUN/Creatinine Ratio 31.3 H Glucose 116 H Calcium 9.4 Medical Necessity - Tobacco Use Smoking Status: Former smoker - 2yr h/o cigar smoking, 1-3/day Tobacco Use: Cigars Assessment/Plan Active and Suspected Problems (Last Reviewed 10/02/17 @ 14:38 by Nessa Jackson) Shortness of breath (Acute) Generalized leg edema (Acute) RECOMMENDATIONS 1. Wean oxygen supplementation to keep saturations 88-92%. 2. Encourage incentive spirometer and Acapella 3. Increase activity as tolerated, restart PT/OT 4. Continue bronchodilators 5. BiPAP at night and PRN during day 6. Unable to do thoracentesis secondary to Plavix 7. Continue antibiotics per ID. 8. Follow-up in the pulmonary clinic upon discharge, would benefit from PSG once acute illness resolved. Possible thoracentesis next week as outpatient, will need follow up imaging regardless. IMPRESSIONS 1. Right pleural effusion/left pleural plaques Chest CT showing moderate to large right pleural effusion with atelectasis and/or consolidation and central vascular congestion. Patient with persistent leukocytosis and fevers, however today is improving. Lactate not elevated. Infectious disease following. Patient currently on cefepime, initially Zosyn. History of endocarditis about a year ago requiring extended IV antibiotics and snf placement. Patient diuresed with IV Lasix, changed to oral on 12/15 secondary to renal dysfunction. Cumulative fluid balance of -3600 mL as of now. Lower extremity edema improved per primary service report. Remains hemodynamically stable. Patient would benefit from diagnostic/therapeutic thoracentesis, however he is on Plavix. He appears to be improving clinically so would hold off on thoracentesis for now. Could be considered for next week if symptoms persist or if repeat chest imaging indicates persistent or worsening effusion. If considering thoracentesis, would need to be off Plavix for 5 days prior. Continue with volume optimization as tolerated, does have some renal dysfunction. Pleural plaques seen on the left could be a result of prior infection vs asbestos exposure, patient does have history and had prior workup. These results are not available to me. Would repeat imaging in 4-6 weeks. 2. Congestive heart failure Improved after diuresis. Lasix de-escalated 12/16. Renal function is worse 12/17, may need to adjust diuretics. Weight is up but overall fluid balance -3600. Utilize BiPAP at night and PRN during the day. 3. 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 Former patient of Dr. Botello through [facility]. No PFTs for several years. Had prior workup at asbestos clinic, who indicated to the patient and his ex- that he had a level of asbestosis. No further treatment pursued. Patient also had sleep study several years ago, could not afford Pap machine. He would benefit from repeat testing, if desired. 3. History of atrial fibrillation/hyperlipidemia/HTN/peripheral vascular disease/valvular heart disease/pacemaker Complicates care, management, recovery, and prognosis. Patient no longer on anticoagulation per NADIA García. Does take Plavix. Continue home medications as indicated. Discussed CODE STATUS with Raquel. She indicates patient would want temporary ventilator, if needed. She is agreeable to DNR CCA for the time being. She is to come to the hospital with her daughter on 12/17 with paperwork. Thank you for the opportunity to participate in this patient's care, please do not hesitate contact us with any further questions or concerns. This note was generated with [employer] dictation software. It may contain incorrect words, spelling, and punctuation that were not noted in checking the note before signing.
--- NOTE | 2017-12-17 10:25 | PN_ITS ---
Patient Problems: Active and Suspected Problems (Last Reviewed 10/02/17 @ 14:38 by Nessa Jackson) Shortness of breath (Acute) Generalized leg edema (Acute) Subjective: The patient was seen and examined. Reports his breathing is fine. His left lower extremity is more painful and throbbing today, states has more swelling. Objective: Recent lab and culture data reviewed. Patient has been weaned to 2 L of oxygen supplementation. T high yesterday 99.9?F, this morning he is 99.2?F. Leukocytosis continues to improve. Kidney function is worse. Blood cultures from 12/15 are still pending. Cumulative fluid balance -3647. Weight has increased 5 pounds since the . - Physical Exam General: Alert, - - oriented to self and place. No conversational dyspnea HEENT: Atraumatic, Normocephalic Oral: Moist Mucosa Neck: Supple, No Nodes, Trachea Midline Lungs: No rhonchi, No wheeze, No rales, Diminished, - - no dullness to percussion Cardiovascular: Regular rate, Regular Rhythm - paced, Normal S1, Normal S2 Abdomen: Bowel Sounds Present, Soft, Non Tender, Obese Extremities: No clubbing, No cyanosis, Edema - increased LLE edema, third spacing. some erythema Skin: - - no significant changes from previous, does have more edema LLE and drainage on R foot dressing Musculoskeletal: Tenderness - LLE Lymphatic: - - no adenopathy Neurological: Cranial nerves II-XII grossly intact, Neuro grossly intact, Motor Exam 5/5 strength throughout Psych/Mental Status: - - painful. Cooperative and forgetful Vital Signs Temp Pulse Resp BP Pulse Ox 97.4 F L 70 16 111/59 L 94 12/17/17 08:46 12/17/17 08:46 12/17/17 08:46 12/17/17 08:46 12/17/17 08:46 Oxygen Flow Rate (L/min) 3 Oxygen Delivery Method Nasal Cannula Weight: 220 lb 14.451 oz Body Mass Index (BMI) 33.5 Intake and Output for Last 24 Hours 12/15/17 12/16/17 12/17/17 23:59 23:59 23:59 Intake Total 1104.3 / 1104.3 1335 / 1335 470 / 470 Output Total 2300 / 2300 1925 / 1925 750 / 750 Balance -1195.7 / -1195.7 -590 / -590 -280 / -280 Laboratory Tests Past 24 Hrs 12/17/17 12/17/17 06:25 06:25 WBC 12.7 H RBC 3.01 L Hgb 8.7 L Hct 27.2 L MCV 90.4 MCH 28.9 MCHC 32.0 RDW 13.9 RDW Differential 44.8 H Plt Count 234 MPV 9.2 Sodium 138 Potassium 5.1 Chloride 103 Carbon Dioxide 25.0 Anion Gap 10 BUN 72 H Creatinine 2.30 H Estim Creat Clear Calc 27.26 Est GFR (MDRD) Af Amer 36 L Est GFR (MDRD) Non-Af 30 L BUN/Creatinine Ratio 31.3 H Glucose 116 H Calcium 9.4 Medical Necessity - Tobacco Use Smoking Status: Former smoker - 2yr h/o cigar smoking, 1-3/day Tobacco Use: Cigars Assessment/Plan Active and Suspected Problems (Last Reviewed 10/02/17 @ 14:38 by Nessa Jackson) Shortness of breath (Acute) Generalized leg edema (Acute) RECOMMENDATIONS 1. Wean oxygen supplementation to keep saturations 88-92%. 2. Encourage incentive spirometer and Acapella 3. Increase activity as tolerated, restart PT/OT 4. Continue bronchodilators 5. BiPAP at night and PRN during day 6. Unable to do thoracentesis secondary to Plavix 7. Continue antibiotics per ID. 8. Follow-up in the pulmonary clinic upon discharge, would benefit from PSG once acute illness resolved. Possible thoracentesis next week as outpatient, will need follow up imaging regardless. IMPRESSIONS 1. Right pleural effusion/left pleural plaques Chest CT showing moderate to large right pleural effusion with atelectasis and/ or consolidation and central vascular congestion. Patient with persistent leukocytosis and fevers, however today is improving. Lactate not elevated. Infectious disease following. Patient currently on cefepime, initially Zosyn. History of endocarditis about a year ago requiring extended IV antibiotics and usp placement. Patient diuresed with IV Lasix, changed to oral on secondary to renal dysfunction. Cumulative fluid balance of -3600 mL as of now. Lower extremity edema improved per primary service report. Remains hemodynamically stable. Patient would benefit from diagnostic/therapeutic thoracentesis, however he is on Plavix. He appears to be improving clinically so would hold off on thoracentesis for now. Could be considered for next week if symptoms persist or if repeat chest imaging indicates persistent or worsening effusion. If considering thoracentesis, would need to be off Plavix for 5 days prior. Continue with volume optimization as tolerated, does have some renal dysfunction. Pleural plaques seen on the left could be a result of prior infection vs asbestos exposure, patient does have history and had prior workup. These results are not available to me. Would repeat imaging in 4-6 weeks. 2. Congestive heart failure Improved after diuresis. Lasix de-escalated 12/16. Renal function is worse 12/17 , may need to adjust diuretics. Weight is up but overall fluid balance -3600. Utilize BiPAP at night and PRN during the day. 3. 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 Former patient of Dr. Botello through [facility]. No PFTs for several years. Had prior workup at asbestos clinic, who indicated to the patient and his ex- that he had a level of asbestosis. No further treatment pursued. Patient also had sleep study several years ago, could not afford Pap machine. He would benefit from repeat testing, if desired. 3. History of atrial fibrillation/hyperlipidemia/HTN/peripheral vascular disease/valvular heart disease/pacemaker Complicates care, management, recovery, and prognosis. Patient no longer on anticoagulation per NADIA García. Does take Plavix. Continue home medications as indicated. Discussed CODE STATUS with Raquel. She indicates patient would want temporary ventilator, if needed. She is agreeable to DNR CCA for the time being. She is to come to the hospital with her daughter on 12/17 with paperwork. Thank you for the opportunity to participate in this patient's care, please do not hesitate contact us with any further questions or concerns. This note was generated with [employer] dictation software. It may contain incorrect words, spelling, and punctuation that were not noted in checking the note before signing.
[2017-12-17] MEDS: 0.9% NaCl Peripheral Flush Adult/Peds IV (10:53)
--- NOTE | 2017-12-17 11:10 | NURSING ---
Addendum entered by Macario Chinchilla 12/17/17 16:35: Per Michelle: family cancelled appointment for today 12/17 due to hospital admission yesterday 12/16. Appointment for suture removal was changed to December 24 and family had been made aware that sutures would be okay to remain in place until then. Original Note: RN called Dr. Parks's office to clarify as to when sutures to left leg are to be removed. Michelle, legal administrative secretary was updated that patient's left leg is increasingly painful, reddened, edematous around incision site, and has clear drainage. PLASTIC WELDER states that area looks worse than yesterday. Michelle states that she will speak with Dr. Parks and return call. RN's direct line provided to Michelle.
--- NOTE | 2017-12-17 11:46 | NURSING ---
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
--- NOTE | 2017-12-17 11:53 | NURSING ---
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 (medial view)
--- NOTE | 2017-12-17 11:54 | NURSING ---
wound photo: left medial lower leg incision
--- NOTE | 2017-12-17 12:30 | PCM.PN.ID ---
Patient Problems: Active and Suspected Problems (Last Reviewed 10/02/17 @ 14:38 by Nessa Jackson) Shortness of breath (Acute) Generalized leg edema (Acute) Subjective: Feeling better, no fever, SOB improved. LLE more sore and swollen today. - Physical Exam General: Alert, Cooperative Lungs: Clear to auscultation, Diminished Cardiovascular: Regular rate, Regular Rhythm Abdomen: Soft, Non Tender, Non-Distended Extremities: Edema Skin: Rash Present - redness around L [place] Vital Signs Temp Pulse Resp BP Pulse Ox 97.4 F L 70 16 111/59 L 94 12/17/17 08:46 12/17/17 08:46 12/17/17 08:46 12/17/17 08:46 12/17/17 08:46 Oxygen Flow Rate (L/min) 3 Oxygen Delivery Method Nasal Cannula Weight: 100.2 kg Body Mass Index (BMI) 33.5 Intake and Output for Last 24 Hours 12/15/17 12/16/17 12/17/17 23:59 23:59 23:59 Intake Total 1104.3 / 1104.3 1335 / 1335 470 / 470 Output Total 2300 / 2300 1925 / 1925 750 / 750 Balance -1195.7 / -1195.7 -590 / -590 -280 / -280 Laboratory Tests Past 24 Hrs 12/17/17 12/17/17 06:25 06:25 WBC 12.7 H RBC 3.01 L Hgb 8.7 L Hct 27.2 L MCV 90.4 MCH 28.9 MCHC 32.0 RDW 13.9 RDW Differential 44.8 H Plt Count 234 MPV 9.2 Sodium 138 Potassium 5.1 Chloride 103 Carbon Dioxide 25.0 Anion Gap 10 BUN 72 H Creatinine 2.30 H Estim Creat Clear Calc 27.26 Est GFR (MDRD) Af Amer 36 L Est GFR (MDRD) Non-Af 30 L BUN/Creatinine Ratio 31.3 H Glucose 116 H Calcium 9.4 Medical Necessity - Tobacco Use Smoking Status: Former smoker - 2yr h/o cigar smoking, 1-3/day Tobacco Use: Cigars Route of nutrition/ use of supplements: [] Nutritional Intake: [] IV Site: [] Christensen Catheter: [] - Assessment/Plan Antibiotics: [] Assessment/Plan: [] Active and Suspected Problems (Last Reviewed 10/02/17 @ 14:38 by Nessa Jackson) Shortness of breath (Acute) Generalized leg edema (Acute) Sepsis - No fever and wbc improved. On cefepime for suspected GNR pneumonia. Imaging shows R effusion. TTE with no veg, but has h/o endocarditis and prior tissue valve replacement. No plan for thoracentesis this hospital stay. Will narrow abx to po levaquin, plan on stop date 12/22/17. leg redness - recent surgery. Increased redness/swelling/pain this AM, suspect it's mostly fluid related. Will monitor. will follow, ok for discharge from my perspective
[2017-12-17] MEDS: levoFLOXacin 750 MG Tablet PO (13:07)
--- NOTE | 2017-12-17 13:36 | VDLE_ITS ---
Reason For Study: LLE Swelling RIGHT LEFT CFV is compressible, spontaneous, phasic, CFV is compressible, spontaneous, phasic, competent and demonstrates normal augmentation. competent, and demonstrates normal Procedure augmentation. Exam performed portable in patient room. FV is compressible, spontaneous, phasic, Technically difficult due to recent LLE competent and demonstrates normal arterial bypass surgery/bandages/stitches. augmentation. A preliminary report was called and/or faxed to [facility] V is compressible, spontaneous, Nessa STALLWORTH. phasic, competent and demonstrates normal augmentation. T/P Trunk is compressible. PTV is compressible. LT PerV is compressible. Lt GSV compressible in the calf Lt GSV harvested in thigh. Interpretation Summary There is no evidence of left lower extremity deep vein thrombosis. Patent and compressible left calf great saphenous vein. Normal flow patterns right common femoral vein. Technically difficult secondary to recent left lower extremity bypass surgery. Ordering Physician: Octaviano Hunter Referring Physician: Murali Yusuf Performed By: Opal Juarez, NELIDACS, RVT
--- NOTE | 2017-12-17 14:47 | NURSING ---
Rachel from Dr. Parks's office phones and states that the vascular surgeon would like to speak with Dr. Hunter. MD is to return call at [phone]. RN informed Rachel that if she didn't hear back from before end of the day, she is to call the hospital at [phone] Hunter to be paged.
--- NOTE | 2017-12-17 14:58 | PCM.PN.HOSP ---
Patient Problems: Active and Suspected Problems (Last Reviewed 10/02/17 @ 14:38 by Nessa Jackson) Shortness of breath (Acute) Generalized leg edema (Acute) Subjective: complaining of increased pain in his left leg. he is in chair with leg dependent, but states he normally keeps it up. Vitals/I&O's: Vital Signs Temp Pulse Resp BP Pulse Ox 36.3 C L 71 16 111/59 L 94 12/17/17 08:46 12/17/17 12:05 12/17/17 08:46 12/17/17 08:46 12/17/17 08:46 Oxygen Flow Rate (L/min) 3 Oxygen Delivery Method Nasal Cannula Weight: 100.2 kg Body Mass Index (BMI) 33.5 Intake and Output for Last 24 Hours 12/15/17 12/16/17 12/17/17 23:59 23:59 23:59 Intake Total 1104.3 / 1104.3 1335 / 1335 1070 / 1070 Output Total 2300 / 2300 1925 / 1925 750 / 750 Balance -1195.7 / -1195.7 -590 / -590 320 / 320 General: Alert, Cooperative, No apparent distress HEENT: Atraumatic, Normocephalic Neck: No Nodes, Thyroid Normal Size and Texture Lungs: Clear to auscultation, Normal air movement, No rhonchi, No wheeze Cardiovascular: Regular rate, Regular Rhythm, Normal S1, Normal S2 Abdomen: Bowel Sounds Present, Soft, Non Tender, Non-Distended Extremities: Edema Skin: - - lymphedema changes to lower extremities. incisions clean and intact. Musculoskeletal: No Tenderness to Palpation of Joints or Extremities, No Muscle Wasting Psych/Mental Status: Normal Affect, Appropriate Microbiology Past 72 Hours 12/15/17 10:50 Blood Culture (Wb) - Anticubital Right Blood Culture - Preliminary No growth in 48 hours. 12/15/17 10:45 Blood Culture (Wb) - Anticubital Left Blood Culture - Preliminary No growth in 48 hours. Laboratory Results 12/17/17 06:25: WBC 12.7 H, RBC 3.01 L, Hgb 8.7 L, Hct 27.2 L, MCV 90.4, MCH 28.9, MCHC 32.0, RDW 13.9, RDW Differential 44.8 H, Plt Count 234, MPV 9.2 12/17/17 06:25: Sodium 138, Potassium 5.1, Chloride 103, Carbon Dioxide 25.0, Anion Gap 10, BUN 72 H, Creatinine 2.30 H, Estim Creat Clear Calc 27.26, Est GFR (MDRD) Af Amer 36 L, Est GFR (MDRD) Non-Af 30 L, BUN/Creatinine Ratio 31.3 H, Glucose 116 H, Calcium 9.4 Current Medications Acetaminophen (Tylenol) 650 mg PO Q6H PRN PRN PRN Reason: MOD-SEVERE PAIN (4-1010) Last Admin: 12/16/17 08:05 Dose: 650 mg Albuterol Sulfate (Ventolin Aerosols) 2.5 mg INHALATION Q2H PRN PRN PRN Reason: dyspnea, wheezing Last Admin: 12/13/17 23:56 Dose: 2.5 mg Albuterol/Ipratropium (Duoneb) 3 ml INHALATION Q6H.RT [facility] Last Admin: 12/17/17 12:43 Dose: 3 ml Amlodipine Besylate (Norvasc) 10 mg PO DAILY [facility] Last Admin: 12/17/17 09:14 Dose: 10 mg Atorvastatin Calcium (Lipitor) 40 mg PO QHS [facility] Last Admin: 12/16/17 21:50 Dose: 40 mg Carvedilol (Coreg) 25 mg PO BID [facility] Last Admin: 12/17/17 09:14 Dose: 25 mg Clopidogrel Bisulfate (Plavix) 75 mg PO DAILY [facility] Last Admin: 12/17/17 09:14 Dose: 75 mg Ferrous Sulfate (Ferrous Sulfate) 325 mg PO TIDCM [facility] Last Admin: 12/17/17 13:07 Dose: 325 mg Furosemide (Lasix) 40 mg PO BID@1000,1800 [facility] Last Admin: 12/17/17 09:14 Dose: 40 mg Guaifenesin (Robitussin) 10 ml PO Q4H PRN PRN PRN Reason: COUGH Heparin Sodium (Porcine) () 5,000 units SC Q8 [facility] Last Admin: 12/17/17 13:08 Dose: 5,000 units Hydralazine HCl (Apresoline Iv) 10 mg IV Q4H PRN PRN PRN Reason: SBP > 160 Levofloxacin (Levaquin Tablet) 750 mg PO Q48@0600 [facility] Last Admin: 12/17/17 13:07 Dose: 750 mg Levothyroxine Sodium (Synthroid) 100 mcg PO DAILY@0600 [facility] Last Admin: 12/17/17 06:26 Dose: 100 mcg Loperamide HCl (Imodium) 2 mg PO Q2H PRN PRN PRN Reason: loose stools Magnesium Hydroxide (Milk Of Magnesia) 30 ml PO .X1 PRN PRN Memantine (Namenda) 10 mg PO BID [facility] Last Admin: 12/17/17 09:14 Dose: 10 mg Multivitamins (Multivitamin) 1 tablet PO DAILY@0800 [facility] Last Admin: 12/17/17 09:13 Dose: 1 tablet Nutritional Formula (Lactose Free) (Ensure Enlive) 120 ml PO 4X/DAY [facility] Last Admin: 12/17/17 13:08 Dose: 120 ml Pantoprazole Sodium (Protonix) 40 mg PO DAILY [facility] Last Admin: 12/17/17 09:14 Dose: 40 mg Potassium Chloride (K-Dur) 20 meq PO BIDCM [facility] Last Admin: 12/17/17 09:13 Dose: 20 meq Senna (Senokot) 1 tablet PO BID [facility] Last Admin: 12/17/17 09:15 Dose: 1 tablet Sodium Chloride () 5 - 30 ml IV UD PRN PRN Reason: SALINE FLUSH Last Admin: 12/17/17 10:53 Dose: 10 ml Tamsulosin HCl (Flomax) 0.4 mg PO DAILY [facility] Last Admin: 12/17/17 09:14 Dose: 0.4 mg Vitamin E (Vitamin E) 400 units PO DAILY [facility] Last Admin: 12/17/17 09:15 Dose: 400 units Zinc Sulfate (Zinc Sulfate) 220 mg PO DAILY [facility] Last Admin: 12/17/17 09:15 Dose: 220 mg Medical Necessity - Tobacco Use Smoking Status: Former smoker - 2yr h/o cigar smoking, 1-3/day Tobacco Use: Cigars Assessment/Plan Active and Suspected Problems (Last Reviewed 10/02/17 @ 14:38 by Nessa Jackson) Shortness of breath (Acute) Generalized leg edema (Acute) 1. HFpEF EF 50% creatine up overall change lasix to 40 PO BID resume coreg no ACEi nor ARB given CKD/ANURAG 2. suspected gram negative pnuemonia. changed to levaquin and will continue through 12/22 ID following and recommend pulm eval for right pleural effusion to see if concern for infectious etiology given history of endocarditis pulmonary toilet cultures negative. 3. CKD 3 presumed chronic, but no baseline labs to review worse today 4. Pleural effusion: hold off on thoracentesis given clinical improvement follow up CXR in 1 month. 5. DVT proph SQ heparin. 6. PAD s/p arterila bypass on left incisions clean his surgeon, Dr. Parks want to speak to me. I called the number provided, , I spoke with his drapery and upholstery estimator who paged but he never called back. I left my number for him to call me. Duplex LLE negative. pt instructed to keep his leg elevated. Code Visit Inpatient E&M: 87473 Subs Hosp L2
--- NOTE | 2017-12-17 15:05 | PN_ITS ---
Patient Problems: Active and Suspected Problems (Last Reviewed 10/02/17 @ 14:38 by Nessa Jackson) Shortness of breath (Acute) Generalized leg edema (Acute) Subjective: complaining of increased pain in his left leg. he is in chair with leg dependent , but states he normally keeps it up. Vitals/I&O's: Vital Signs Temp Pulse Resp BP Pulse Ox 36.3 C L 71 16 111/59 L 94 12/17/17 08:46 12/17/17 12:05 12/17/17 08:46 12/17/17 08:46 12/17/17 08:46 Oxygen Flow Rate (L/min) 3 Oxygen Delivery Method Nasal Cannula Weight: 100.2 kg Body Mass Index (BMI) 33.5 Intake and Output for Last 24 Hours 12/15/17 12/16/17 12/17/17 23:59 23:59 23:59 Intake Total 1104.3 / 1104.3 1335 / 1335 1070 / 1070 Output Total 2300 / 2300 1925 / 1925 750 / 750 Balance -1195.7 / -1195.7 -590 / -590 320 / 320 General: Alert, Cooperative, No apparent distress HEENT: Atraumatic, Normocephalic Neck: No Nodes, Thyroid Normal Size and Texture Lungs: Clear to auscultation, Normal air movement, No rhonchi, No wheeze Cardiovascular: Regular rate, Regular Rhythm, Normal S1, Normal S2 Abdomen: Bowel Sounds Present, Soft, Non Tender, Non-Distended Extremities: Edema Skin: - - lymphedema changes to lower extremities. incisions clean and intact. Musculoskeletal: No Tenderness to Palpation of Joints or Extremities, No Muscle Wasting Psych/Mental Status: Normal Affect, Appropriate Microbiology Past 72 Hours 12/15/17 10:50 Blood Culture (Wb) - Anticubital Right Blood Culture - Preliminary No growth in 48 hours. 12/15/17 10:45 Blood Culture (Wb) - Anticubital Left Blood Culture - Preliminary No growth in 48 hours. Laboratory Results 12/17/17 06:25: WBC 12.7 H, RBC 3.01 L, Hgb 8.7 L, Hct 27.2 L, MCV 90.4, MCH 28.9, MCHC 32.0, RDW 13.9, RDW Differential 44.8 H, Plt Count 234, MPV 9.2 12/17/17 06:25: Sodium 138, Potassium 5.1, Chloride 103, Carbon Dioxide 25.0, Anion Gap 10, BUN 72 H, Creatinine 2.30 H, Estim Creat Clear Calc 27.26, Est GFR (MDRD) Af Amer 36 L, Est GFR (MDRD) Non-Af 30 L, BUN/Creatinine Ratio 31.3 H , Glucose 116 H, Calcium 9.4 Current Medications Acetaminophen (Tylenol) 650 mg PO Q6H PRN PRN PRN Reason: MOD-SEVERE PAIN (4-1010) Last Admin: 12/16/17 08:05 Dose: 650 mg Albuterol Sulfate (Ventolin Aerosols) 2.5 mg INHALATION Q2H PRN PRN PRN Reason: dyspnea, wheezing Last Admin: 12/13/17 23:56 Dose: 2.5 mg Albuterol/Ipratropium (Duoneb) 3 ml INHALATION Q6H.RT [facility] Last Admin: 12/17/17 12:43 Dose: 3 ml Amlodipine Besylate (Norvasc) 10 mg PO DAILY [facility] Last Admin: 12/17/17 09:14 Dose: 10 mg Atorvastatin Calcium (Lipitor) 40 mg PO QHS [facility] Last Admin: 12/16/17 21:50 Dose: 40 mg Carvedilol (Coreg) 25 mg PO BID [facility] Last Admin: 12/17/17 09:14 Dose: 25 mg Clopidogrel Bisulfate (Plavix) 75 mg PO DAILY [facility] Last Admin: 12/17/17 09:14 Dose: 75 mg Ferrous Sulfate (Ferrous Sulfate) 325 mg PO TIDCM [facility] Last Admin: 12/17/17 13:07 Dose: 325 mg Furosemide (Lasix) 40 mg PO BID@1000,1800 [facility] Last Admin: 12/17/17 09:14 Dose: 40 mg Guaifenesin (Robitussin) 10 ml PO Q4H PRN PRN PRN Reason: COUGH Heparin Sodium (Porcine) () 5,000 units SC Q8 [facility] Last Admin: 12/17/17 13:08 Dose: 5,000 units Hydralazine HCl (Apresoline Iv) 10 mg IV Q4H PRN PRN PRN Reason: SBP > 160 Levofloxacin (Levaquin Tablet) 750 mg PO Q48@0600 [facility] Last Admin: 12/17/17 13:07 Dose: 750 mg Levothyroxine Sodium (Synthroid) 100 mcg PO DAILY@0600 [facility] Last Admin: 12/17/17 06:26 Dose: 100 mcg Loperamide HCl (Imodium) 2 mg PO Q2H PRN PRN PRN Reason: loose stools Magnesium Hydroxide (Milk Of Magnesia) 30 ml PO .X1 PRN PRN Memantine (Namenda) 10 mg PO BID [facility] Last Admin: 12/17/17 09:14 Dose: 10 mg Multivitamins (Multivitamin) 1 tablet PO DAILY@0800 [facility] Last Admin: 12/17/17 09:13 Dose: 1 tablet Nutritional Formula (Lactose Free) (Ensure Enlive) 120 ml PO 4X/DAY [facility] Last Admin: 12/17/17 13:08 Dose: 120 ml Pantoprazole Sodium (Protonix) 40 mg PO DAILY [facility] Last Admin: 12/17/17 09:14 Dose: 40 mg Potassium Chloride (K-Dur) 20 meq PO BIDCM [facility] Last Admin: 12/17/17 09:13 Dose: 20 meq Senna (Senokot) 1 tablet PO BID [facility] Last Admin: 12/17/17 09:15 Dose: 1 tablet Sodium Chloride () 5 - 30 ml IV UD PRN PRN Reason: SALINE FLUSH Last Admin: 12/17/17 10:53 Dose: 10 ml Tamsulosin HCl (Flomax) 0.4 mg PO DAILY [facility] Last Admin: 12/17/17 09:14 Dose: 0.4 mg Vitamin E (Vitamin E) 400 units PO DAILY [facility] Last Admin: 12/17/17 09:15 Dose: 400 units Zinc Sulfate (Zinc Sulfate) 220 mg PO DAILY [facility] Last Admin: 12/17/17 09:15 Dose: 220 mg Medical Necessity - Tobacco Use Smoking Status: Former smoker - 2yr h/o cigar smoking, 1-3/day Tobacco Use: Cigars Assessment/Plan Active and Suspected Problems (Last Reviewed 10/02/17 @ 14:38 by Nessa Jackson) Shortness of breath (Acute) Generalized leg edema (Acute) 1. HFpEF * EF 50% * creatine up overall * change lasix to 40 PO BID * resume coreg * no ACEi nor ARB given CKD/ANURAG 2. suspected gram negative pnuemonia. * changed to levaquin and will continue through 12/22 * ID following and recommend pulm eval for right pleural effusion to see if concern for infectious etiology given history of endocarditis * pulmonary toilet * cultures negative. 3. CKD 3 * presumed chronic, but no baseline labs to review * worse today 4. Pleural effusion: * hold off on thoracentesis given clinical improvement * follow up CXR in 1 month. 5. DVT proph SQ heparin. 6. PAD * s/p arterila bypass on left * incisions clean * his surgeon, Dr. Parks want to speak to me. I called the number provided, , I spoke with his office secretary who paged but he never called back. I left my number for him to call me. * Duplex LLE negative. * pt instructed to keep his leg elevated. Code Visit Inpatient E&M: 73701 Subs Hosp L2
[2017-12-17] MEDS: Acetaminophen 325 MG Tablet 650 MG PO (15:10)
[2017-12-17] MEDS: Magnesium Hydroxide 30 ML UDC PO (17:52)
[2017-12-17] MEDS: Atorvastatin Calcium 40 MG Tablet PO (22:19)
[2017-12-18] VITALS (14 sets, daily range): BP systolic 100–114; BP diastolic 55–62; PULSE 69–73; RESP 16–20; TEMP 36.3–36.8; O2SAT 95–97
[2017-12-18] MEDS: Levothyroxine 100 MCG Tablet PO (06:17)
[2017-12-18] MEDS: Heparin Injection 5,000 UNITS/ML Syringe 5000 UNITS SC ×3 (06:17→21:29)
[2017-12-18 06:25] LABS: Absolute Neutrophil Count 7.5 X10^3/uL (2.0-7.7); Basophil# 0.03 X10^3/uL; Basophil% 0.3 % (0-1); Eosinophil# 0.34 X10^3/uL; Eosinophils% 3.5 % (0-5); Hemoglobin 8.6 g/dl (13.0-16.5); Lymphocyte % 6.1 % (19-41); Mean Corp Hgb Conc 31.9 g/gl (32-36); Mean Corpuscular Hgb 28.5 pg (27.0-32.0); Mean Corpuscular Volume 89.4 fL (80-94); Monocyte% 13.3 % (0-10); Neutrophil # 7.46 X10^3/uL (2.7-7.7); Neutrophil % 76.2 % (47-70); Platelet Count 226 K/mm3 (150-450); RBC Distribution Width CV 14.3 % (11.6-14.6); RBC Distribution Width SD 46.9 fl (35.1-43.9); Red Blood Count 3.02 M/mm3 (4.6-6.2); White Blood Count 9.8 K/mm3 (4.4-11.0)
[2017-12-18 06:32] LABS: POSITIVE COUNT NO; POSITIVE DIFFERENTIAL NO; POSITIVE MORPHOLOGY NO
[2017-12-18 06:39] LABS: Anion Gap 8 (5-15); BUN 77 mg/dL (7-18); BUN/Creat Ratio 32.8 RATIO (10-20); Calcium,Total 9.4 mg/dL (8.5-10.1); Chloride 103 mmol/L (98-107); Creatinine, Serum 2.35 mg/dL (0.70-1.30); EST Glomerular Filtration Rate 29 mL/min (>60); Est Glom Filt Rate - Afr Amer 35 mL/min (>60); Estimated Creatinine Clearance 26.68 ml/min; Glucose 115 mg/dL (74-106); Potassium 5.6 mmol/L (3.5-5.1); Sodium Level 140 mmol/L (136-145)
[2017-12-18 06:59] LABS: Differential Comment SCANNED; Hypochromasia 1+
[2017-12-18] MEDS: Ipratropium/Albuterol Sulfate 3 ML AMPUL.NEB INHALATION ×3 (07:33→20:10)
[2017-12-18] MEDS: Ferrous Sulfate 325 MG Tablet PO ×3 (08:01→17:46)
[2017-12-18] MEDS: Multivitamins,Therapeutic Tablet 1 TABLET PO (08:01)
--- NOTE | 2017-12-18 08:51 | PCM.PROGNOTE ---
Patient Problems: Active and Suspected Problems (Last Reviewed 10/02/17 @ 14:38 by Nessa Jackson) Shortness of breath (Acute) Generalized leg edema (Acute) Subjective: The patient was seen and examined. He is resting in bed in no acute distress. Denies any shortness of breath, maintaining appropriate saturations on 3 L of oxygen. Antibiotics have been changed to oral. Objective: Recent lab and culture data reviewed. Blood cultures from 12/12 and 12/15 showed NGTD. Urine strep/Legionella antigens negative. Yesterday his lower extremity Doppler was repeated secondary to increased swelling and redness, negative for acute DVT. Antibiotics have been changed to oral. Patient at -4857 fluid balance and still on Lasix 40 twice daily. Renal function progressively worsening. - Physical Exam General: Alert, Cooperative, - - oriented self and place HEENT: Atraumatic, Normocephalic Oral: Moist Mucosa Neck: Supple, Trachea Midline Lungs: No rhonchi, No wheeze, No rales, Diminished Cardiovascular: Regular rate, Regular Rhythm, Normal S1, Normal S2, - - paced Abdomen: Bowel Sounds Present, Soft, Non Tender Extremities: No clubbing, No cyanosis, Edema - improved to LLE Skin: - - edema and drainage improved to LLE, now wrapped w/CHAN. Wound care nurse following Musculoskeletal: Tenderness - LLE Lymphatic: - - no adenopathy Neurological: Neuro grossly intact Psych/Mental Status: Normal Affect, - - forgetful but alert Vital Signs Temp Pulse Resp BP Pulse Ox 98.1 F 72 18 114/60 95 12/18/17 08:10 12/18/17 08:10 12/18/17 08:10 12/18/17 08:10 12/18/17 08:10 Oxygen Flow Rate (L/min) 3 Oxygen Delivery Method Nasal Cannula Weight: 216 lb 14.958 oz Body Mass Index (BMI) 33.5 Intake and Output for Last 24 Hours 12/16/17 12/17/17 12/18/17 23:59 23:59 23:59 Intake Total 1335 / 1335 1560 / 1560 120 / 120 Output Total 1925 / 1925 1920 / 1920 1250 / 1250 Balance -590 / -590 -360 / -360 -1130 / -1130 Microbiology Past 72 Hours 12/15/17 10:50 Blood Culture - Preliminary Blood Culture (Wb) - Anticubital Right No growth in 48 hours. 12/15/17 10:45 Blood Culture - Preliminary Blood Culture (Wb) - Anticubital Left No growth in 48 hours. Laboratory Tests Past 24 Hrs 12/18/17 12/18/17 05:55 05:55 WBC 9.8 RBC 3.02 L Hgb 8.6 L Hct 27.0 L MCV 89.4 MCH 28.5 MCHC 31.9 L RDW 14.3 RDW Differential 46.9 H Plt Count 226 MPV 9.0 Immature Gran % (Auto) 0.600 Neut % (Auto) 76.2 H Lymph % (Auto) 6.1 L [place] % (Auto) 13.3 H Eos % (Auto) 3.5 Baso % (Auto) 0.3 Absolute Neuts (auto) 7.5 Absolute Lymphs (auto) 0.60 L Total Counted Not Reportable Differential Comment SCANNED Hypochromasia 1+ Sodium 140 Potassium 5.6 H Chloride 103 Carbon Dioxide 29.0 Anion Gap 8 BUN 77 H Creatinine 2.35 H Estim Creat Clear Calc 26.68 Est GFR (MDRD) Af Amer 35 L Est GFR (MDRD) Non-Af 29 L BUN/Creatinine Ratio 32.8 H Glucose 115 H Calcium 9.4 Medical Necessity - Tobacco Use Smoking Status: Former smoker - 2yr h/o cigar smoking, 1-3/day Tobacco Use: Cigars Assessment/Plan Active and Suspected Problems (Last Reviewed 10/02/17 @ 14:38 by Nessa Jackson) Shortness of breath (Acute) Generalized leg edema (Acute) RECOMMENDATIONS 1. Wean oxygen supplementation to keep saturations 88-92%. 2. Encourage incentive spirometer and Acapella 3. Increase activity as tolerated, PT/OT 4. Continue bronchodilators 5. BiPAP at night and PRN during day 6. Continue antibiotics per ID 7. Follow-up in the pulmonary clinic upon discharge, would benefit from PSG once acute illness resolved. Possible thoracentesis next week as outpatient, will need follow up imaging regardless. Repeat chest x-ray in 4-6 weeks to check status of pleural effusion. IMPRESSIONS 1. Right pleural effusion/left pleural plaques Chest CT showing moderate to large right pleural effusion with atelectasis and/or consolidation and central vascular congestion. Pleural plaques seen on the left could be a result of prior infection vs asbestos exposure, patient does have history and had prior workup. These results are not available to me. Would repeat imaging in 4-6 weeks. Infectious disease following, changed to oral antibiotics 12/17. Fevers resolved, leukocytosis improving. Breathing better, no chest pain. Diuresed, renal function worsening. Cumulative fluid balance today with additional 1L in last 24 hrs to make -4857 mL. Patient would benefit from diagnostic/therapeutic thoracentesis, however he is on Plavix. He appears to be improving clinically so would hold off on thoracentesis for now. Could be considered for next week if symptoms persist or if repeat chest imaging indicates persistent or worsening effusion. If considering thoracentesis, would need to be off Plavix for 5 days prior. Continue with volume optimization as tolerated. 2. Congestive heart failure Improved after diuresis. Lasix de-escalated 12/16. Renal function worsening, may need to adjust diuretics. Utilize BiPAP at night and PRN during the day. 3. 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 Former patient of Dr. Botello through [facility]. No PFTs for several years. Had prior workup at asbestos clinic, who indicated to the patient and his ex- that he had a level of asbestosis. No further treatment pursued. Patient also had sleep study several years ago, could not afford Pap machine. He would benefit from repeat testing, if desired. Can be sent home with Ventolin inhaler to use PRN. 3. History of atrial fibrillation/hyperlipidemia/HTN/peripheral vascular disease/valvular heart disease/pacemaker Complicates care, management, recovery, and prognosis. Patient no longer on anticoagulation per NADIA García. Does take Plavix. Continue home medications as indicated. Discussed CODE STATUS with Raquel. She indicates patient would want temporary ventilator, if needed. She is agreeable to DNR CCA for the time being. Thank you for the opportunity to participate in this patient's care, please do not hesitate contact us with any further questions or concerns. This note was generated with [employer] software. It may contain incorrect words, spelling, and punctuation that were not noted in checking the note before signing.
[2017-12-18] MEDS: Clopidogrel Bisulfate 75 MG Tablet PO (09:27)
[2017-12-18] MEDS: Furosemide 40 MG Tablet PO ×2 (09:27→17:46)
[2017-12-18] MEDS: Carvedilol 25 MG Tablet PO ×2 (09:27→21:28)
[2017-12-18] MEDS: Tamsulosin HCl 0.4 MG Capsule PO (09:27)
[2017-12-18] MEDS: amLODIPine 10 MG Tablet PO (09:27)
[2017-12-18] MEDS: Memantine Hydrochloride 10 MG Tablet PO ×2 (09:27→21:29)
[2017-12-18] MEDS: Pantoprazole Sodium 40 MG Tablet PO (09:28)
[2017-12-18] MEDS: Senna Tablet 1 TABLET PO ×2 (09:28→21:28)
[2017-12-18] MEDS: Vitamin E 400 UNITS Capsule PO (09:28)
--- NOTE | 2017-12-18 10:20 | PN.ID_ITS ---
Patient Problems: Active and Suspected Problems (Last Reviewed 10/02/17 @ 14:38 by Nessa Jackson) Shortness of breath (Acute) Generalized leg edema (Acute) Subjective: Leg feels better, no fever, breathing ok. - Physical Exam General: Alert, No apparent distress Lungs: Clear to auscultation, Normal air movement Cardiovascular: Regular rate, Regular Rhythm Abdomen: Soft, Non Tender, Non-Distended Extremities: Edema Skin: Rash Present - LLE decreased redness and soreness. Wrapped with gretchen wrap. Vital Signs Temp Pulse Resp BP Pulse Ox 98.1 F 72 18 114/60 95 12/18/17 08:10 12/18/17 08:10 12/18/17 08:10 12/18/17 08:10 12/18/17 08:10 Oxygen Flow Rate (L/min) 3 Oxygen Delivery Method Nasal Cannula Weight: 98.4 kg Body Mass Index (BMI) 33.5 Intake and Output for Last 24 Hours 12/16/17 12/17/17 12/18/17 23:59 23:59 23:59 Intake Total 1335 / 1335 1560 / 1560 120 / 120 Output Total 1925 / 1925 1920 / 1920 1250 / 1250 Balance -590 / -590 -360 / -360 -1130 / -1130 Microbiology Past 72 Hours 12/15/17 10:50 Blood Culture - Preliminary Blood Culture (Wb) - Anticubital Right No growth in 48 hours. 12/15/17 10:45 Blood Culture - Preliminary Blood Culture (Wb) - Anticubital Left No growth in 48 hours. Laboratory Tests Past 24 Hrs 12/18/17 12/18/17 05:55 05:55 WBC 9.8 RBC 3.02 L Hgb 8.6 L Hct 27.0 L MCV 89.4 MCH 28.5 MCHC 31.9 L RDW 14.3 RDW Differential 46.9 H Plt Count 226 MPV 9.0 Immature Gran % (Auto) 0.600 Neut % (Auto) 76.2 H Lymph % (Auto) 6.1 L [place] % (Auto) 13.3 H Eos % (Auto) 3.5 Baso % (Auto) 0.3 Absolute Neuts (auto) 7.5 Absolute Lymphs (auto) 0.60 L Total Counted Not Reportable Differential Comment SCANNED Hypochromasia 1+ Sodium 140 Potassium 5.6 H Chloride 103 Carbon Dioxide 29.0 Anion Gap 8 BUN 77 H Creatinine 2.35 H Estim Creat Clear Calc 26.68 Est GFR (MDRD) Af Amer 35 L Est GFR (MDRD) Non-Af 29 L BUN/Creatinine Ratio 32.8 H Glucose 115 H Calcium 9.4 Medical Necessity - Tobacco Use Smoking Status: Former smoker - 2yr h/o cigar smoking, 1-3/day Tobacco Use: Cigars Route of nutrition/ use of supplements: [] Nutritional Intake: [] IV Site: [] Christensen Catheter: [] - Assessment/Plan Antibiotics: [] Assessment/Plan: [] Active and Suspected Problems (Last Reviewed 10/02/17 @ 14:38 by Nessa Jackson) Shortness of breath (Acute) Generalized leg edema (Acute) Sepsis - No fever and wbc improved. Treating for suspected GNR pneumonia. Imaging shows R effusion. TTE with no veg, but has h/o endocarditis and prior tissue valve replacement. No plan for thoracentesis this hospital stay. Narrowed abx to po levaquin, plan on stop date 12/22/17. leg redness - recent surgery. Improved this AM with wrapping will follow, ok for discharge from my perspective
[2017-12-18] MEDS: Acetaminophen 325 MG Tablet 650 MG PO ×2 (13:20→21:29)
--- NOTE | 2017-12-18 13:37 | PCM.PN.HOSP ---
Patient Problems: Active and Suspected Problems (Last Reviewed 10/02/17 @ 14:38 by Nessa Jackson) Shortness of breath (Acute) Generalized leg edema (Acute) Subjective: Still with pain in his leg and swelling. Nursing was noting some increased drainage from the wound of his distal leg that saturated his dressing. Vitals/I&O's: Vital Signs Temp Pulse Resp BP Pulse Ox 36.7 C 70 18 114/60 95 12/18/17 08:10 12/18/17 11:09 12/18/17 08:10 12/18/17 08:10 12/18/17 08:10 Oxygen Flow Rate (L/min) 3 Oxygen Delivery Method Nasal Cannula Weight: 98.4 kg Body Mass Index (BMI) 33.5 Intake and Output for Last 24 Hours 12/16/17 12/17/17 12/18/17 23:59 23:59 23:59 Intake Total 1335 / 1335 1560 / 1560 400 / 400 Output Total 1925 / 1925 1920 / 1920 2350 / 2350 Balance -590 / -590 -360 / -360 -1950 / -1950 General: Alert, Cooperative, No apparent distress, - - Listless HEENT: Atraumatic, Normocephalic Oral: Moist Mucosa, No Gingival or Mucosal Lesions/ Ulcerations Neck: No Nodes, Thyroid Normal Size and Texture Lungs: Clear to auscultation, Normal air movement, No rhonchi, No wheeze Cardiovascular: Regular rate, Regular Rhythm, Normal S1, Normal S2 Abdomen: Bowel Sounds Present, Soft, Non Tender, Non-Distended, No Hepato-splenomegaly Extremities: No edema, No Calf Tenderness Skin: No rashes, No breakdown Musculoskeletal: No Tenderness to Palpation of Joints or Extremities, No Muscle Wasting Psych/Mental Status: Normal Affect, Appropriate Microbiology Past 72 Hours 12/15/17 10:50 Blood Culture (Wb) - Anticubital Right Blood Culture - Preliminary No growth in 48 hours. 12/15/17 10:45 Blood Culture (Wb) - Anticubital Left Blood Culture - Preliminary No growth in 48 hours. Laboratory Results 12/18/17 05:55: WBC 9.8, RBC 3.02 L, Hgb 8.6 L, Hct 27.0 L, MCV 89.4, MCH 28.5, MCHC 31.9 L, RDW 14.3, RDW Differential 46.9 H, Plt Count 226, MPV 9.0, Immature Gran % (Auto) 0.600, Neut % (Auto) 76.2 H, Lymph % (Auto) 6.1 L, [place] % (Auto) 13.3 H, Eos % (Auto) 3.5, Baso % (Auto) 0.3, Absolute Neuts (auto) 7.5, Absolute Lymphs (auto) 0.60 L, Total Counted Not Reportable, Differential Comment SCANNED, Hypochromasia 1+ 12/18/17 05:55: Sodium 140, Potassium 5.6 H, Chloride 103, Carbon Dioxide 29.0, Anion Gap 8, BUN 77 H, Creatinine 2.35 H, Estim Creat Clear Calc 26.68, Est GFR (MDRD) Af Amer 35 L, Est GFR (MDRD) Non-Af 29 L, BUN/Creatinine Ratio 32.8 H, Glucose 115 H, Calcium 9.4 Current Medications Acetaminophen (Tylenol) 650 mg PO Q6H PRN PRN PRN Reason: MOD-SEVERE PAIN (4-06/10) Last Admin: 12/18/17 13:20 Dose: 650 mg Albuterol Sulfate (Ventolin Aerosols) 2.5 mg INHALATION Q2H PRN PRN PRN Reason: dyspnea, wheezing Last Admin: 12/13/17 23:56 Dose: 2.5 mg Albuterol/Ipratropium (Duoneb) 3 ml INHALATION Q6H.RT [facility] Last Admin: 12/18/17 07:33 Dose: 3 ml Amlodipine Besylate (Norvasc) 10 mg PO DAILY [facility] Last Admin: 12/18/17 09:27 Dose: 10 mg Atorvastatin Calcium (Lipitor) 40 mg PO QHS [facility] Last Admin: 12/17/17 22:19 Dose: 40 mg Carvedilol (Coreg) 25 mg PO BID [facility] Last Admin: 12/18/17 09:27 Dose: 25 mg Clopidogrel Bisulfate (Plavix) 75 mg PO DAILY [facility] Last Admin: 12/18/17 09:27 Dose: 75 mg Ferrous Sulfate (Ferrous Sulfate) 325 mg PO TIDCM [facility] Last Admin: 12/18/17 11:35 Dose: 325 mg Furosemide (Lasix) 40 mg PO BID@1000,1800 [facility] Last Admin: 12/18/17 09:27 Dose: 40 mg Guaifenesin (Robitussin) 10 ml PO Q4H PRN PRN PRN Reason: COUGH Heparin Sodium (Porcine) () 5,000 units SC Q8 [facility] Last Admin: 12/18/17 13:20 Dose: 5,000 units Hydralazine HCl (Apresoline Iv) 10 mg IV Q4H PRN PRN PRN Reason: SBP > 160 Levofloxacin (Levaquin Tablet) 750 mg PO Q48@0600 [facility] Last Admin: 12/17/17 13:07 Dose: 750 mg Levothyroxine Sodium (Synthroid) 100 mcg PO DAILY@0600 [facility] Last Admin: 12/18/17 06:17 Dose: 100 mcg Loperamide HCl (Imodium) 2 mg PO Q2H PRN PRN PRN Reason: loose stools Magnesium Hydroxide (Milk Of Magnesia) 30 ml PO .X1 PRN PRN Last Admin: 12/17/17 17:52 Dose: 30 ml Memantine (Namenda) 10 mg PO BID [facility] Last Admin: 12/18/17 09:27 Dose: 10 mg Multivitamins (Multivitamin) 1 tablet PO DAILY@0800 [facility] Last Admin: 12/18/17 08:01 Dose: 1 tablet Nutritional Formula (Lactose Free) (Ensure Enlive) 120 ml PO 4X/DAY [facility] Last Admin: 12/18/17 13:20 Dose: 120 ml Pantoprazole Sodium (Protonix) 40 mg PO DAILY [facility] Last Admin: 12/18/17 09:28 Dose: 40 mg Senna (Senokot) 1 tablet PO BID [facility] Last Admin: 12/18/17 09:28 Dose: 1 tablet Sodium Chloride () 5 - 30 ml IV UD PRN PRN Reason: SALINE FLUSH Last Admin: 12/17/17 10:53 Dose: 10 ml Tamsulosin HCl (Flomax) 0.4 mg PO DAILY [facility] Last Admin: 12/18/17 09:27 Dose: 0.4 mg Vitamin E (Vitamin E) 400 units PO DAILY [facility] Last Admin: 12/18/17 09:28 Dose: 400 units Zinc Sulfate (Zinc Sulfate) 220 mg PO DAILY [facility] Last Admin: 12/18/17 09:28 Dose: 220 mg Medical Necessity - Tobacco Use Smoking Status: Former smoker - 2yr h/o cigar smoking, 1-3/day Tobacco Use: Cigars Assessment/Plan Active and Suspected Problems (Last Reviewed 10/02/17 @ 14:38 by Nessa Jackson) Shortness of breath (Acute) Generalized leg edema (Acute) 1. HFpEF EF 50% creatine up overall change lasix to 40 PO BID resume coreg no ACEi nor ARB given CKD/ANURAG 2. suspected gram negative pnuemonia. changed to levaquin and will continue through 12/22 ID following and recommend pulm eval for right pleural effusion to see if concern for infectious etiology given history of endocarditis pulmonary toilet cultures negative. 3. CKD 3 presumed chronic, but no baseline labs to review worse today 4. Pleural effusion: hold off on thoracentesis given clinical improvement follow up CXR in 1 month. 5. DVT proph SQ heparin. 6. PAD s/p arterila bypass on left incisions clean Duplex LLE negative. pt instructed to keep his leg elevated. Drainage from distal wound today. Discussed with wound care states that unable to express further fluid from it. Will check culture. If patient has increased drainage from this wound or if there is concern for infection then I would recommend CAT scan of his leg. Discussed with Dr. Parks who recommended keeping the patient's sutures in until he can follow-up with the patient in the office. Code Visit Inpatient E&M: 94670 Subs Hosp L2
--- NOTE | 2017-12-18 13:40 | PN_ITS ---
Patient Problems: Active and Suspected Problems (Last Reviewed 10/02/17 @ 14:38 by Nessa Jackson) Shortness of breath (Acute) Generalized leg edema (Acute) Subjective: Still with pain in his leg and swelling. Nursing was noting some increased drainage from the wound of his distal leg that saturated his dressing. Vitals/I&O's: Vital Signs Temp Pulse Resp BP Pulse Ox 36.7 C 70 18 114/60 95 12/18/17 08:10 12/18/17 11:09 12/18/17 08:10 12/18/17 08:10 12/18/17 08:10 Oxygen Flow Rate (L/min) 3 Oxygen Delivery Method Nasal Cannula Weight: 98.4 kg Body Mass Index (BMI) 33.5 Intake and Output for Last 24 Hours 12/16/17 12/17/17 12/18/17 23:59 23:59 23:59 Intake Total 1335 / 1335 1560 / 1560 400 / 400 Output Total 1925 / 1925 1920 / 1920 2350 / 2350 Balance -590 / -590 -360 / -360 -1950 / -1950 General: Alert, Cooperative, No apparent distress, - - Listless HEENT: Atraumatic, Normocephalic Oral: Moist Mucosa, No Gingival or Mucosal Lesions/ Ulcerations Neck: No Nodes, Thyroid Normal Size and Texture Lungs: Clear to auscultation, Normal air movement, No rhonchi, No wheeze Cardiovascular: Regular rate, Regular Rhythm, Normal S1, Normal S2 Abdomen: Bowel Sounds Present, Soft, Non Tender, Non-Distended, No Hepato- splenomegaly Extremities: No edema, No Calf Tenderness Skin: No rashes, No breakdown Musculoskeletal: No Tenderness to Palpation of Joints or Extremities, No Muscle Wasting Psych/Mental Status: Normal Affect, Appropriate Microbiology Past 72 Hours 12/15/17 10:50 Blood Culture (Wb) - Anticubital Right Blood Culture - Preliminary No growth in 48 hours. 12/15/17 10:45 Blood Culture (Wb) - Anticubital Left Blood Culture - Preliminary No growth in 48 hours. Laboratory Results 12/18/17 05:55: WBC 9.8, RBC 3.02 L, Hgb 8.6 L, Hct 27.0 L, MCV 89.4, MCH 28.5, MCHC 31.9 L, RDW 14.3, RDW Differential 46.9 H, Plt Count 226, MPV 9.0, Immature Gran % (Auto) 0.600, Neut % (Auto) 76.2 H, Lymph % (Auto) 6.1 L, [place] % (Auto) 13.3 H, Eos % (Auto) 3.5, Baso % (Auto) 0.3, Absolute Neuts (auto) 7.5 , Absolute Lymphs (auto) 0.60 L, Total Counted Not Reportable, Differential Comment SCANNED, Hypochromasia 1+ 12/18/17 05:55: Sodium 140, Potassium 5.6 H, Chloride 103, Carbon Dioxide 29.0, Anion Gap 8, BUN 77 H, Creatinine 2.35 H, Estim Creat Clear Calc 26.68, Est GFR (MDRD) Af Amer 35 L, Est GFR (MDRD) Non-Af 29 L, BUN/Creatinine Ratio 32.8 H, Glucose 115 H, Calcium 9.4 Current Medications Acetaminophen (Tylenol) 650 mg PO Q6H PRN PRN PRN Reason: MOD-SEVERE PAIN (4-06/10) Last Admin: 12/18/17 13:20 Dose: 650 mg Albuterol Sulfate (Ventolin Aerosols) 2.5 mg INHALATION Q2H PRN PRN PRN Reason: dyspnea, wheezing Last Admin: 12/13/17 23:56 Dose: 2.5 mg Albuterol/Ipratropium (Duoneb) 3 ml INHALATION Q6H.RT [facility] Last Admin: 12/18/17 07:33 Dose: 3 ml Amlodipine Besylate (Norvasc) 10 mg PO DAILY [facility] Last Admin: 12/18/17 09:27 Dose: 10 mg Atorvastatin Calcium (Lipitor) 40 mg PO QHS [facility] Last Admin: 12/17/17 22:19 Dose: 40 mg Carvedilol (Coreg) 25 mg PO BID [facility] Last Admin: 12/18/17 09:27 Dose: 25 mg Clopidogrel Bisulfate (Plavix) 75 mg PO DAILY [facility] Last Admin: 12/18/17 09:27 Dose: 75 mg Ferrous Sulfate (Ferrous Sulfate) 325 mg PO TIDCM [facility] Last Admin: 12/18/17 11:35 Dose: 325 mg Furosemide (Lasix) 40 mg PO BID@1000,1800 [facility] Last Admin: 12/18/17 09:27 Dose: 40 mg Guaifenesin (Robitussin) 10 ml PO Q4H PRN PRN PRN Reason: COUGH Heparin Sodium (Porcine) () 5,000 units SC Q8 [facility] Last Admin: 12/18/17 13:20 Dose: 5,000 units Hydralazine HCl (Apresoline Iv) 10 mg IV Q4H PRN PRN PRN Reason: SBP > 160 Levofloxacin (Levaquin Tablet) 750 mg PO Q48@0600 [facility] Last Admin: 12/17/17 13:07 Dose: 750 mg Levothyroxine Sodium (Synthroid) 100 mcg PO DAILY@0600 [facility] Last Admin: 12/18/17 06:17 Dose: 100 mcg Loperamide HCl (Imodium) 2 mg PO Q2H PRN PRN PRN Reason: loose stools Magnesium Hydroxide (Milk Of Magnesia) 30 ml PO .X1 PRN PRN Last Admin: 12/17/17 17:52 Dose: 30 ml Memantine (Namenda) 10 mg PO BID [facility] Last Admin: 12/18/17 09:27 Dose: 10 mg Multivitamins (Multivitamin) 1 tablet PO DAILY@0800 [facility] Last Admin: 12/18/17 08:01 Dose: 1 tablet Nutritional Formula (Lactose Free) (Ensure Enlive) 120 ml PO 4X/DAY [facility] Last Admin: 12/18/17 13:20 Dose: 120 ml Pantoprazole Sodium (Protonix) 40 mg PO DAILY [facility] Last Admin: 12/18/17 09:28 Dose: 40 mg Senna (Senokot) 1 tablet PO BID [facility] Last Admin: 12/18/17 09:28 Dose: 1 tablet Sodium Chloride () 5 - 30 ml IV UD PRN PRN Reason: SALINE FLUSH Last Admin: 12/17/17 10:53 Dose: 10 ml Tamsulosin HCl (Flomax) 0.4 mg PO DAILY [facility] Last Admin: 12/18/17 09:27 Dose: 0.4 mg Vitamin E (Vitamin E) 400 units PO DAILY [facility] Last Admin: 12/18/17 09:28 Dose: 400 units Zinc Sulfate (Zinc Sulfate) 220 mg PO DAILY [facility] Last Admin: 12/18/17 09:28 Dose: 220 mg Medical Necessity - Tobacco Use Smoking Status: Former smoker - 2yr h/o cigar smoking, 1-3/day Tobacco Use: Cigars Assessment/Plan Active and Suspected Problems (Last Reviewed 10/02/17 @ 14:38 by Nessa Jackson) Shortness of breath (Acute) Generalized leg edema (Acute) 1. HFpEF * EF 50% * creatine up overall * change lasix to 40 PO BID * resume coreg * no ACEi nor ARB given CKD/ANURAG 2. suspected gram negative pnuemonia. * changed to levaquin and will continue through 12/22 * ID following and recommend pulm eval for right pleural effusion to see if concern for infectious etiology given history of endocarditis * pulmonary toilet * cultures negative. 3. CKD 3 * presumed chronic, but no baseline labs to review * worse today 4. Pleural effusion: * hold off on thoracentesis given clinical improvement * follow up CXR in 1 month. 5. DVT proph SQ heparin. 6. PAD * s/p arterila bypass on left * incisions clean * Duplex LLE negative. * pt instructed to keep his leg elevated. * Drainage from distal wound today. Discussed with wound care states that unable to express further fluid from it. Will check culture. If patient has increased drainage from this wound or if there is concern for infection then I would recommend CAT scan of his leg. * Discussed with Dr. Parks who recommended keeping the patient's sutures in until he can follow-up with the patient in the office. Code Visit Inpatient E&M: 40774 Subs Hosp L2
[2017-12-18 17:33] LABS: M R Staph aureus DNA By PCR Negative (Negative); Probe Check PASS; Staph aureus DNA By PCR NEGATIVE (Negative)
[2017-12-18] MEDS: Atorvastatin Calcium 40 MG Tablet PO (21:29)
[2017-12-19] VITALS (16 sets, daily range): BP systolic 103–119; BP diastolic 57–69; PULSE 70–79; RESP 16–22; TEMP 36.6–36.9; O2SAT 95–97
[2017-12-19] MEDS: Heparin Injection 5,000 UNITS/ML Syringe 5000 UNITS SC ×2 (06:03→15:06)
[2017-12-19] MEDS: levoFLOXacin 750 MG Tablet PO (06:03)
[2017-12-19] MEDS: Levothyroxine 100 MCG Tablet PO (06:03)
[2017-12-19 06:37] LABS: Absolute Lymphocyte Count 0.91 X10^3/ul (0.83-4.51); Absolute Neutrophil Count 6.6 X10^3/uL (2.0-7.7); Basophil# 0.02 X10^3/uL; Basophil% 0.2 % (0-1); Eosinophil# 0.31 X10^3/uL; Eosinophils% 3.4 % (0-5); Hematocrit 27.7 % (40-54); Hemoglobin 8.7 g/dl (13.0-16.5); Lymphocyte # 0.91 X10^3/ul (4.0); Lymphocyte % 10.1 % (19-41); Mean Corp Hgb Conc 31.4 g/gl (32-36); Mean Corpuscular Hgb 27.9 pg (27.0-32.0); Mean Corpuscular Volume 88.8 fL (80-94); Monocyte# 1.12 X10^3/uL; Monocyte% 12.4 % (0-10); Neutrophil # 6.57 X10^3/uL (2.7-7.7); Neutrophil % 72.9 % (47-70); Platelet Count 268 K/mm3 (150-450); RBC Distribution Width CV 14.3 % (11.6-14.6); RBC Distribution Width SD 46.7 fl (35.1-43.9); Red Blood Count 3.12 M/mm3 (4.6-6.2)
[2017-12-19 06:46] LABS: POSITIVE COUNT NO; POSITIVE DIFFERENTIAL NO; POSITIVE MORPHOLOGY NO
[2017-12-19 06:59] LABS: Anion Gap 8 (5-15); BUN 79 mg/dL (7-18); BUN/Creat Ratio 33.2 RATIO (10-20); Calcium,Total 9.5 mg/dL (8.5-10.1); Chloride 103 mmol/L (98-107); Creatinine, Serum 2.38 mg/dL (0.70-1.30); EST Glomerular Filtration Rate 29 mL/min (>60); Est Glom Filt Rate - Afr Amer 35 mL/min (>60); Estimated Creatinine Clearance 26.34 ml/min; Glucose 129 mg/dL (74-106); Potassium 5.1 mmol/L (3.5-5.1); Sodium Level 139 mmol/L (136-145)
[2017-12-19] MEDS: Ipratropium/Albuterol Sulfate 3 ML AMPUL.NEB INHALATION ×3 (07:28→19:40)
[2017-12-19] MEDS: Pantoprazole Sodium 40 MG Tablet PO (09:45)
[2017-12-19] MEDS: Vitamin E 400 UNITS Capsule PO (09:45)
[2017-12-19] MEDS: Memantine Hydrochloride 10 MG Tablet PO ×2 (09:45→22:20)
[2017-12-19] MEDS: amLODIPine 10 MG Tablet PO (09:45)
[2017-12-19] MEDS: Multivitamins,Therapeutic Tablet 1 TABLET PO (09:45)
[2017-12-19] MEDS: Carvedilol 25 MG Tablet PO ×2 (09:45→22:20)
[2017-12-19] MEDS: Furosemide 40 MG Tablet PO ×2 (09:45→17:04)
[2017-12-19] MEDS: Tamsulosin HCl 0.4 MG Capsule PO (09:45)
[2017-12-19] MEDS: Clopidogrel Bisulfate 75 MG Tablet PO (09:45)
[2017-12-19] MEDS: Ferrous Sulfate 325 MG Tablet PO ×3 (09:45→17:04)
--- NOTE | 2017-12-19 10:16 | PN_ITS ---
Patient Problems: Active and Suspected Problems (Last Reviewed 10/02/17 @ 14:38 by Nessa Jackson) Shortness of breath (Acute) Generalized leg edema (Acute) Subjective: Patient seen and examined. He complains of lower extremity pain bilaterally, has been receiving medications to help with this. He just had a large bowel movement and states he feels better. Reports occasional nonproductive cough. Remains afebrile and hemodynamically stable, maintaining appropriate saturations on 2 L of oxygen. Objective: Recent lab and culture data reviewed. Blood cultures from 12/12 and 12/15 showed NGTD. Urine strep/Legionella antigens negative. Yesterday his lower extremity Doppler was repeated secondary to increased swelling and redness, negative for acute DVT. Wound culture preliminary showing very rare gram-positive organism - Physical Exam General: Alert, Oriented x3, Cooperative, No apparent distress, - - Appears depressed HEENT: Atraumatic, Normocephalic Oral: Moist Mucosa Neck: Supple, Trachea Midline Lungs: No rhonchi, No wheeze, No rales, Diminished Cardiovascular: Regular rate, Regular Rhythm, Normal S1, Normal S2 Abdomen: Bowel Sounds Present, Soft, Non Tender, Obese Extremities: No clubbing, No cyanosis, Edema Skin: - - No changes from previous Musculoskeletal: No Tenderness to Palpation of Joints or Extremities Lymphatic: No Cervical, Supraclavicular, or Inguinal Adenopathy Neurological: Neuro grossly intact Psych/Mental Status: Flat Affect, Depressed, - - Cooperative Vital Signs Temp Pulse Resp BP Pulse Ox 98.4 F 70 16 116/62 97 12/19/17 09:20 12/19/17 09:20 12/19/17 09:20 12/19/17 09:20 12/19/17 09:20 Oxygen Flow Rate (L/min) 2 Oxygen Delivery Method Nasal Cannula Weight: 212 lb 8.41 oz Body Mass Index (BMI) 33.5 Intake and Output for Last 24 Hours 12/17/17 12/18/17 12/19/17 23:59 23:59 23:59 Intake Total 1560 / 1560 800 / 800 120 / 120 Output Total 1920 / 1920 4500 / 4500 950 / 950 Balance -360 / -360 -3700 / -3700 -830 / -830 Microbiology Past 72 Hours 12/15/17 10:50 Blood Culture - Preliminary Blood Culture (Wb) - Anticubital Right No growth in 48 hours. 12/15/17 10:45 Blood Culture - Preliminary Blood Culture (Wb) - Anticubital Left No growth in 48 hours. Laboratory Tests Past 24 Hrs 12/18/17 12/19/17 12/19/17 13:40 06:08 06:08 WBC 9.0 RBC 3.12 L Hgb 8.7 L Hct 27.7 L MCV 88.8 MCH 27.9 MCHC 31.4 L RDW 14.3 RDW Differential 46.7 H Plt Count 268 MPV 9.0 Immature Gran % (Auto) 1.000 H Neut % (Auto) 72.9 H Lymph % (Auto) 10.1 L [place] % (Auto) 12.4 H Eos % (Auto) 3.4 Baso % (Auto) 0.2 Absolute Neuts (auto) 6.6 Absolute Lymphs (auto) 0.91 Total Counted Not Reportable Sodium 139 Potassium 5.1 Chloride 103 Carbon Dioxide 28.0 Anion Gap 8 BUN 79 H Creatinine 2.38 H Estim Creat Clear Calc 26.34 Est GFR (MDRD) Af Amer 35 L Est GFR (MDRD) Non-Af 29 L BUN/Creatinine Ratio 33.2 H Glucose 129 H Calcium 9.5 S.aureus Protein A PCR NEGATIVE MRSA (PCR) Negative Medical Necessity - Tobacco Use Smoking Status: Former smoker - 2yr h/o cigar smoking, 1-3/day Tobacco Use: Cigars Assessment/Plan Active and Suspected Problems (Last Reviewed 10/02/17 @ 14:38 by Nessa Jackson) Shortness of breath (Acute) Generalized leg edema (Acute) RECOMMENDATIONS 1. Wean oxygen supplementation to keep saturations 88-92%. 2. Encourage incentive spirometer and Acapella 3. Increase activity as tolerated, PT/OT 4. Continue bronchodilators 5. BiPAP at night and PRN during day 6. Continue antibiotics per ID 7. Follow-up in the pulmonary clinic upon discharge, would benefit from PSG once acute illness resolved. Possible thoracentesis next week as outpatient if symptoms worsen, will need follow up imaging regardless. Repeat chest x-ray in 4-6 weeks to check status of pleural effusion. IMPRESSIONS 1. Right pleural effusion/left pleural plaques Chest CT showing moderate to large right pleural effusion with atelectasis and/ or consolidation and central vascular congestion. Pleural plaques seen on the left could be a result of prior infection vs asbestos exposure, patient does have history and had prior workup. These results are not available to me. Would repeat imaging in 4-6 weeks. Infectious disease following, changed to oral antibiotics 12/17. Fevers resolved, leukocytosis improving. Breathing better, no chest pain. Diuresed, renal function worsening. Cumulative fluid balance -8L. Patient would possibly benefit from diagnostic/therapeutic thoracentesis, however he is on Plavix. He appears to be improving clinically so would hold off on thoracentesis for now. Could be considered for next week if symptoms persist or if repeat chest imaging indicates persistent or worsening effusion. If considering thoracentesis, would need to be off Plavix for 5 days prior. Continue with volume optimization as tolerated. 2. Congestive heart failure Improved after diuresis. Lasix de-escalated 12/16. Renal function worsening, may need to adjust diuretics upon d/c. Utilize BiPAP at night and PRN during the day. 3. 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 Former patient of Dr. Botello through [facility]. No PFTs for several years. Had prior workup at asbestos clinic, who indicated to the patient and his ex- that he had a level of asbestosis. No further treatment pursued. Patient also had sleep study several years ago, could not afford Pap machine. He would benefit from repeat testing, if desired. Can be sent home with Ventolin inhaler to use PRN. 3. History of atrial fibrillation/hyperlipidemia/HTN/peripheral vascular disease/valvular heart disease/pacemaker Complicates care, management, recovery, and prognosis. Patient no longer on anticoagulation per NADIA García. Does take Plavix. Continue home medications as indicated. Discussed CODE STATUS with Raquel. She indicates patient would want temporary ventilator, if needed. She is agreeable to DNR CCA for the time being. Thank you for the opportunity to participate in this patient's care, please do not hesitate contact us with any further questions or concerns. This note was generated with [employer] software. It may contain incorrect words, spelling, and punctuation that were not noted in checking the note before signing.
[2017-12-19] MEDS: Acetaminophen 325 MG Tablet 650 MG PO ×2 (11:17→17:17)
--- NOTE | 2017-12-19 12:44 | PN.ID_ITS ---
Patient Problems: Active and Suspected Problems (Last Reviewed 10/02/17 @ 14:38 by Nessa Jackson) Shortness of breath (Acute) Generalized leg edema (Acute) Subjective: Leg feels a little better, no fever, breathing ok. Some clear drainage from leg yesterday, sent for culture. - Physical Exam General: Alert, Cooperative, No apparent distress Lungs: Clear to auscultation, Normal air movement Cardiovascular: Regular rate, Regular Rhythm Abdomen: Soft, Non Tender, Non-Distended Extremities: Edema Skin: Incision - L lower leg incision, some serous drainage on dressing. Vital Signs Temp Pulse Resp BP Pulse Ox 98.4 F 70 16 116/62 97 12/19/17 09:20 12/19/17 11:03 12/19/17 09:20 12/19/17 09:20 12/19/17 09:20 Oxygen Flow Rate (L/min) 3 Oxygen Delivery Method Nasal Cannula Weight: 96.4 kg Body Mass Index (BMI) 33.5 Intake and Output for Last 24 Hours 12/17/17 12/18/17 12/19/17 23:59 23:59 23:59 Intake Total 1560 / 1560 800 / 800 400 / 400 Output Total 1920 / 1920 4500 / 4500 1979 / 1979 Balance -360 / -360 -3700 / -3700 -1580 / -1580 Microbiology Past 72 Hours 12/18/17 13:40 Gram Stain - Final Wound - Leg, Left Wound Culture - Preliminary Gram positive organism 12/15/17 10:50 Blood Culture - Preliminary Blood Culture (Wb) - Anticubital Right No growth in 48 hours. 12/15/17 10:45 Blood Culture - Preliminary Blood Culture (Wb) - Anticubital Left No growth in 48 hours. Laboratory Tests Past 24 Hrs 12/18/17 12/19/17 12/19/17 13:40 06:08 06:08 WBC 9.0 RBC 3.12 L Hgb 8.7 L Hct 27.7 L MCV 88.8 MCH 27.9 MCHC 31.4 L RDW 14.3 RDW Differential 46.7 H Plt Count 268 MPV 9.0 Immature Gran % (Auto) 1.000 H Neut % (Auto) 72.9 H Lymph % (Auto) 10.1 L [place] % (Auto) 12.4 H Eos % (Auto) 3.4 Baso % (Auto) 0.2 Absolute Neuts (auto) 6.6 Absolute Lymphs (auto) 0.91 Total Counted Not Reportable Sodium 139 Potassium 5.1 Chloride 103 Carbon Dioxide 28.0 Anion Gap 8 BUN 79 H Creatinine 2.38 H Estim Creat Clear Calc 26.34 Est GFR (MDRD) Af Amer 35 L Est GFR (MDRD) Non-Af 29 L BUN/Creatinine Ratio 33.2 H Glucose 129 H Calcium 9.5 S.aureus Protein A PCR NEGATIVE MRSA (PCR) Negative Medical Necessity - Tobacco Use Smoking Status: Former smoker - 2yr h/o cigar smoking, 1-3/day Tobacco Use: Cigars Route of nutrition/ use of supplements: [] Nutritional Intake: [] IV Site: [] Christensen Catheter: [] - Assessment/Plan Antibiotics: [] Assessment/Plan: [] Active and Suspected Problems (Last Reviewed 10/02/17 @ 14:38 by Nessa Jackson) Shortness of breath (Acute) Generalized leg edema (Acute) Sepsis - No fever and wbc improved. Treating for suspected GNR pneumonia. Imaging shows R effusion. TTE with no veg, but has h/o endocarditis and prior tissue valve replacement. No plan for thoracentesis this hospital stay. Narrowed abx to po levaquin, plan on stop date 12/22/17. leg redness - recent surgery. Some serous drainage. Wound cx yesterday with no inflammation or bacteria on gram stain, only rare gpc on cx. Low suspicion for active wound infection at this point. will follow, ok for discharge from my perspective
--- NOTE | 2017-12-19 13:15 | CT_ITS ---
STUDY: CT LEFT LOWER EXTREMITY WITHOUT CONTRAST REASON FOR EXAM: Male, 72 years old. Bypass surgery one month ago. Drainage. Swelling. Calf pain. RADIATION DOSAGE (If Supplied By Facility): CTDIvol = ( 15.49 ) mGy, DLP = ( 993.24 ) mGycm TECHNIQUE: Transaxial CT imaging of the knee was performed. Coronal and sagittal images were reformatted. COMPARISON: None. FINDINGS: There is a total knee arthroplasty. The prosthetic components articulate normally with each other. There is no loosening from the underlying bone. There is no joint effusion. The tibia and fibula are intact without fracture or destructive pathology. The ankle appears normal. There is thickening and diffuse stranding of the subcutaneous fat from the lower thigh to the ankle. In the region of the posterior medial calf there is a 4.5 x 3.8 x 10 cm ill-defined low-attenuation mass which appears to involve the medial gastrocnemius muscle. Superiorly this appears to extend outward into the subcutaneous tissues to the skin surface most likely at the site of leakage. The remainder of the musculature is otherwise unremarkable. There is marked arthrosis of the arterial structures of the calf and lower leg. CT/Extremity Lower without Contra IMPRESSION: 1. Large fluid density mass in the medial gastrocnemius muscle extending out to the skin surface. This suggests abscess. 2. Diffuse subcutaneous edema. 3. 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 4. Marked atherosclerotic changes of the visualized arterial structures. Electronically Signed: Christopher Butler DO at 16:53 EDT Tel [phone], Service support ,
--- NOTE | 2017-12-19 13:18 | PCM.PN.HOSP ---
Patient Problems: Active and Suspected Problems (Last Reviewed 10/02/17 @ 14:38 by Nessa Jackson) Shortness of breath (Acute) Generalized leg edema (Acute) Subjective: still with LLE pain, drainage and swelling. Vitals/I&O's: Vital Signs Temp Pulse Resp BP Pulse Ox 36.9 C 70 16 116/62 97 12/19/17 09:20 12/19/17 11:03 12/19/17 09:20 12/19/17 09:20 12/19/17 09:20 Oxygen Flow Rate (L/min) 3 Oxygen Delivery Method Nasal Cannula Weight: 96.4 kg Body Mass Index (BMI) 33.5 Intake and Output for Last 24 Hours 12/17/17 12/18/17 12/19/17 23:59 23:59 23:59 Intake Total 1560 / 1560 800 / 800 400 / 400 Output Total 1920 / 1920 4500 / 4500 1979 / 1979 Balance -360 / -360 -3700 / -3700 -1580 / -1580 General: Alert, Cooperative, No apparent distress HEENT: Atraumatic, Normocephalic Neck: No Nodes, Thyroid Normal Size and Texture Lungs: Clear to auscultation, Normal air movement, No rhonchi, No wheeze Cardiovascular: Regular rate, Regular Rhythm, Normal S1, Normal S2 Abdomen: Bowel Sounds Present, Soft, Non Tender, Non-Distended, No Hepato-splenomegaly Extremities: No Calf Tenderness, Edema Skin: - - incision of distal left leg approximate with serous drainage. TTP. no induration. Musculoskeletal: No Tenderness to Palpation of Joints or Extremities, No Muscle Wasting Psych/Mental Status: Flat Affect Microbiology Past 72 Hours 12/18/17 13:40 Wound - Leg, Left Gram Stain - Final 12/18/17 13:40 Wound - Leg, Left Wound Culture - Preliminary Gram positive organism 12/15/17 10:50 Blood Culture (Wb) - Anticubital Right Blood Culture - Preliminary No growth in 48 hours. 12/15/17 10:45 Blood Culture (Wb) - Anticubital Left Blood Culture - Preliminary No growth in 48 hours. Laboratory Results 12/18/17 13:40: S.aureus Protein A PCR NEGATIVE, MRSA (PCR) Negative 12/19/17 06:08: WBC 9.0, RBC 3.12 L, Hgb 8.7 L, Hct 27.7 L, MCV 88.8, MCH 27.9, MCHC 31.4 L, RDW 14.3, RDW Differential 46.7 H, Plt Count 268, MPV 9.0, Immature Gran % (Auto) 1.000 H, Neut % (Auto) 72.9 H, Lymph % (Auto) 10.1 L, [place] % (Auto) 12.4 H, Eos % (Auto) 3.4, Baso % (Auto) 0.2, Absolute Neuts (auto) 6.6, Absolute Lymphs (auto) 0.91, Total Counted Not Reportable 12/19/17 06:08: Sodium 139, Potassium 5.1, Chloride 103, Carbon Dioxide 28.0, Anion Gap 8, BUN 79 H, Creatinine 2.38 H, Estim Creat Clear Calc 26.34, Est GFR (MDRD) Af Amer 35 L, Est GFR (MDRD) Non-Af 29 L, BUN/Creatinine Ratio 33.2 H, Glucose 129 H, Calcium 9.5 Current Medications Acetaminophen (Tylenol) 650 mg PO Q6H PRN PRN PRN Reason: MOD-SEVERE PAIN (4-06/10) Last Admin: 12/19/17 11:17 Dose: 650 mg Albuterol Sulfate (Ventolin Aerosols) 2.5 mg INHALATION Q2H PRN PRN PRN Reason: dyspnea, wheezing Last Admin: 12/13/17 23:56 Dose: 2.5 mg Albuterol/Ipratropium (Duoneb) 3 ml INHALATION Q6H.RT [facility] Last Admin: 12/19/17 13:00 Dose: 3 ml Amlodipine Besylate (Norvasc) 10 mg PO DAILY [facility] Last Admin: 12/19/17 09:45 Dose: 10 mg Atorvastatin Calcium (Lipitor) 40 mg PO QHS [facility] Last Admin: 12/18/17 21:29 Dose: 40 mg Carvedilol (Coreg) 25 mg PO BID [facility] Last Admin: 12/19/17 09:45 Dose: 25 mg Clopidogrel Bisulfate (Plavix) 75 mg PO DAILY [facility] Last Admin: 12/19/17 09:45 Dose: 75 mg Ferrous Sulfate (Ferrous Sulfate) 325 mg PO TIDCM [facility] Last Admin: 12/19/17 11:17 Dose: 325 mg Furosemide (Lasix) 40 mg PO BID@1000,1800 [facility] Last Admin: 12/19/17 09:45 Dose: 40 mg Guaifenesin (Robitussin) 10 ml PO Q4H PRN PRN PRN Reason: COUGH Heparin Sodium (Porcine) () 5,000 units SC Q8 [facility] Last Admin: 12/19/17 06:03 Dose: 5,000 units Hydralazine HCl (Apresoline Iv) 10 mg IV Q4H PRN PRN PRN Reason: SBP > 160 Levofloxacin (Levaquin Tablet) 750 mg PO Q48@0600 [facility] Last Admin: 12/19/17 06:03 Dose: 750 mg Levothyroxine Sodium (Synthroid) 100 mcg PO DAILY@0600 [facility] Last Admin: 12/19/17 06:03 Dose: 100 mcg Loperamide HCl (Imodium) 2 mg PO Q2H PRN PRN PRN Reason: loose stools Magnesium Hydroxide (Milk Of Magnesia) 30 ml PO .X1 PRN PRN Last Admin: 12/17/17 17:52 Dose: 30 ml Memantine (Namenda) 10 mg PO BID [facility] Last Admin: 12/19/17 09:45 Dose: 10 mg Multivitamins (Multivitamin) 1 tablet PO DAILY@0800 [facility] Last Admin: 12/19/17 09:45 Dose: 1 tablet Nutritional Formula (Lactose Free) (Ensure Enlive) 120 ml PO 4X/DAY [facility] Last Admin: 12/19/17 09:45 Dose: 120 ml Pantoprazole Sodium (Protonix) 40 mg PO DAILY [facility] Last Admin: 12/19/17 09:45 Dose: 40 mg Senna (Senokot) 1 tablet PO BID [facility] Last Admin: 12/19/17 09:46 Dose: Not Given Sodium Chloride () 5 - 30 ml IV UD PRN PRN Reason: SALINE FLUSH Last Admin: 12/17/17 10:53 Dose: 10 ml Tamsulosin HCl (Flomax) 0.4 mg PO DAILY [facility] Last Admin: 12/19/17 09:45 Dose: 0.4 mg Vitamin E (Vitamin E) 400 units PO DAILY [facility] Last Admin: 12/19/17 09:45 Dose: 400 units Zinc Sulfate (Zinc Sulfate) 220 mg PO DAILY [facility] Last Admin: 12/19/17 09:45 Dose: 220 mg Medical Necessity - Tobacco Use Smoking Status: Former smoker - 2yr h/o cigar smoking, 1-3/day Tobacco Use: Cigars Assessment/Plan Active and Suspected Problems (Last Reviewed 10/02/17 @ 14:38 by Nessa Jackson) Shortness of breath (Acute) Generalized leg edema (Acute) 1. HFpEF EF 50% creatine up overall change lasix to 40 PO BID resume coreg no ACEi nor ARB given CKD/ANURAG 2. suspected gram negative pnuemonia. changed to levaquin and will continue through 12/22 ID following and recommend pulm eval for right pleural effusion to see if concern for infectious etiology given history of endocarditis pulmonary toilet cultures negative. 3. CKD 3 presumed chronic, but no baseline labs to review worse today 4. Pleural effusion: hold off on thoracentesis given clinical improvement follow up CXR in 1 month. 5. DVT proph SQ heparin. 6. PAD s/p arterila bypass on left incisions clean Duplex LLE negative. pt instructed to keep his leg elevated. Drainage from distal wound today. Discussed with wound care states that unable to express further fluid from it. Will check culture. If patient has increased drainage from this wound or if there is concern for infection then I would recommend CAT scan of his leg. Discussed with Dr. Parks who recommended keeping the patient's sutures in until he can follow-up with the patient in the office. check CT leg to eval for abscess. no obvious cellulitis. not felt to be infected per ID. Gram stain + GPC. Code Visit Inpatient E&M: 84205 Subs Hosp L2
--- NOTE | 2017-12-19 13:21 | PN_ITS ---
Patient Problems: Active and Suspected Problems (Last Reviewed 10/02/17 @ 14:38 by Nessa Jackson) Shortness of breath (Acute) Generalized leg edema (Acute) Subjective: still with LLE pain, drainage and swelling. Vitals/I&O's: Vital Signs Temp Pulse Resp BP Pulse Ox 36.9 C 70 16 116/62 97 12/19/17 09:20 12/19/17 11:03 12/19/17 09:20 12/19/17 09:20 12/19/17 09:20 Oxygen Flow Rate (L/min) 3 Oxygen Delivery Method Nasal Cannula Weight: 96.4 kg Body Mass Index (BMI) 33.5 Intake and Output for Last 24 Hours 12/17/17 12/18/17 12/19/17 23:59 23:59 23:59 Intake Total 1560 / 1560 800 / 800 400 / 400 Output Total 1920 / 1920 4500 / 4500 1979 / 1979 Balance -360 / -360 -3700 / -3700 -1580 / -1580 General: Alert, Cooperative, No apparent distress HEENT: Atraumatic, Normocephalic Neck: No Nodes, Thyroid Normal Size and Texture Lungs: Clear to auscultation, Normal air movement, No rhonchi, No wheeze Cardiovascular: Regular rate, Regular Rhythm, Normal S1, Normal S2 Abdomen: Bowel Sounds Present, Soft, Non Tender, Non-Distended, No Hepato- splenomegaly Extremities: No Calf Tenderness, Edema Skin: - - incision of distal left leg approximate with serous drainage. TTP. no induration. Musculoskeletal: No Tenderness to Palpation of Joints or Extremities, No Muscle Wasting Psych/Mental Status: Flat Affect Microbiology Past 72 Hours 12/18/17 13:40 Wound - Leg, Left Gram Stain - Final 12/18/17 13:40 Wound - Leg, Left Wound Culture - Preliminary Gram positive organism 12/15/17 10:50 Blood Culture (Wb) - Anticubital Right Blood Culture - Preliminary No growth in 48 hours. 12/15/17 10:45 Blood Culture (Wb) - Anticubital Left Blood Culture - Preliminary No growth in 48 hours. Laboratory Results 12/18/17 13:40: S.aureus Protein A PCR NEGATIVE, MRSA (PCR) Negative 12/19/17 06:08: WBC 9.0, RBC 3.12 L, Hgb 8.7 L, Hct 27.7 L, MCV 88.8, MCH 27.9, MCHC 31.4 L, RDW 14.3, RDW Differential 46.7 H, Plt Count 268, MPV 9.0, Immature Gran % (Auto) 1.000 H, Neut % (Auto) 72.9 H, Lymph % (Auto) 10.1 L, [place] % (Auto) 12.4 H, Eos % (Auto) 3.4, Baso % (Auto) 0.2, Absolute Neuts (auto ) 6.6, Absolute Lymphs (auto) 0.91, Total Counted Not Reportable 12/19/17 06:08: Sodium 139, Potassium 5.1, Chloride 103, Carbon Dioxide 28.0, Anion Gap 8, BUN 79 H, Creatinine 2.38 H, Estim Creat Clear Calc 26.34, Est GFR (MDRD) Af Amer 35 L, Est GFR (MDRD) Non-Af 29 L, BUN/Creatinine Ratio 33.2 H, Glucose 129 H, Calcium 9.5 Current Medications Acetaminophen (Tylenol) 650 mg PO Q6H PRN PRN PRN Reason: MOD-SEVERE PAIN (4-06/10) Last Admin: 12/19/17 11:17 Dose: 650 mg Albuterol Sulfate (Ventolin Aerosols) 2.5 mg INHALATION Q2H PRN PRN PRN Reason: dyspnea, wheezing Last Admin: 12/13/17 23:56 Dose: 2.5 mg Albuterol/Ipratropium (Duoneb) 3 ml INHALATION Q6H.RT [facility] Last Admin: 12/19/17 13:00 Dose: 3 ml Amlodipine Besylate (Norvasc) 10 mg PO DAILY [facility] Last Admin: 12/19/17 09:45 Dose: 10 mg Atorvastatin Calcium (Lipitor) 40 mg PO QHS [facility] Last Admin: 12/18/17 21:29 Dose: 40 mg Carvedilol (Coreg) 25 mg PO BID [facility] Last Admin: 12/19/17 09:45 Dose: 25 mg Clopidogrel Bisulfate (Plavix) 75 mg PO DAILY [facility] Last Admin: 12/19/17 09:45 Dose: 75 mg Ferrous Sulfate (Ferrous Sulfate) 325 mg PO TIDCM [facility] Last Admin: 12/19/17 11:17 Dose: 325 mg Furosemide (Lasix) 40 mg PO BID@1000,1800 [facility] Last Admin: 12/19/17 09:45 Dose: 40 mg Guaifenesin (Robitussin) 10 ml PO Q4H PRN PRN PRN Reason: COUGH Heparin Sodium (Porcine) () 5,000 units SC Q8 [facility] Last Admin: 12/19/17 06:03 Dose: 5,000 units Hydralazine HCl (Apresoline Iv) 10 mg IV Q4H PRN PRN PRN Reason: SBP > 160 Levofloxacin (Levaquin Tablet) 750 mg PO Q48@0600 [facility] Last Admin: 12/19/17 06:03 Dose: 750 mg Levothyroxine Sodium (Synthroid) 100 mcg PO DAILY@0600 [facility] Last Admin: 12/19/17 06:03 Dose: 100 mcg Loperamide HCl (Imodium) 2 mg PO Q2H PRN PRN PRN Reason: loose stools Magnesium Hydroxide (Milk Of Magnesia) 30 ml PO .X1 PRN PRN Last Admin: 12/17/17 17:52 Dose: 30 ml Memantine (Namenda) 10 mg PO BID [facility] Last Admin: 12/19/17 09:45 Dose: 10 mg Multivitamins (Multivitamin) 1 tablet PO DAILY@0800 [facility] Last Admin: 12/19/17 09:45 Dose: 1 tablet Nutritional Formula (Lactose Free) (Ensure Enlive) 120 ml PO 4X/DAY [facility] Last Admin: 12/19/17 09:45 Dose: 120 ml Pantoprazole Sodium (Protonix) 40 mg PO DAILY [facility] Last Admin: 12/19/17 09:45 Dose: 40 mg Senna (Senokot) 1 tablet PO BID [facility] Last Admin: 12/19/17 09:46 Dose: Not Given Sodium Chloride () 5 - 30 ml IV UD PRN PRN Reason: SALINE FLUSH Last Admin: 12/17/17 10:53 Dose: 10 ml Tamsulosin HCl (Flomax) 0.4 mg PO DAILY [facility] Last Admin: 12/19/17 09:45 Dose: 0.4 mg Vitamin E (Vitamin E) 400 units PO DAILY [facility] Last Admin: 12/19/17 09:45 Dose: 400 units Zinc Sulfate (Zinc Sulfate) 220 mg PO DAILY [facility] Last Admin: 12/19/17 09:45 Dose: 220 mg Medical Necessity - Tobacco Use Smoking Status: Former smoker - 2yr h/o cigar smoking, 1-3/day Tobacco Use: Cigars Assessment/Plan Active and Suspected Problems (Last Reviewed 10/02/17 @ 14:38 by Nessa Jackson) Shortness of breath (Acute) Generalized leg edema (Acute) 1. HFpEF * EF 50% * creatine up overall * change lasix to 40 PO BID * resume coreg * no ACEi nor ARB given CKD/ANURAG 2. suspected gram negative pnuemonia. * changed to levaquin and will continue through 12/22 * ID following and recommend pulm eval for right pleural effusion to see if concern for infectious etiology given history of endocarditis * pulmonary toilet * cultures negative. 3. CKD 3 * presumed chronic, but no baseline labs to review * worse today 4. Pleural effusion: * hold off on thoracentesis given clinical improvement * follow up CXR in 1 month. 5. DVT proph SQ heparin. 6. PAD * s/p arterila bypass on left * incisions clean * Duplex LLE negative. * pt instructed to keep his leg elevated. * Drainage from distal wound today. Discussed with wound care states that unable to express further fluid from it. Will check culture. If patient has increased drainage from this wound or if there is concern for infection then I would recommend CAT scan of his leg. * Discussed with Dr. Parks who recommended keeping the patient's sutures in until he can follow-up with the patient in the office. * check CT leg to eval for abscess. no obvious cellulitis. not felt to be infected per ID. Gram stain + GPC. Code Visit Inpatient E&M: 96754 Subs Hosp L2
--- NOTE | 2017-12-19 14:37 | CASEMGMT ---
SW called [facility] and let them know patient is not going to be coming back today, but possibly over the weekend. Green sheet on the chart with instructions for d/c. Staff to set up transport. Plan: Return to [facility] under intermediate level of care. Yessenia DIAZ [facility]
--- NOTE | 2017-12-19 15:22 | NURSING ---
wound photo: left lower leg
--- NOTE | 2017-12-19 15:23 | NURSING ---
wound photo: right foot
--- NOTE | 2017-12-19 15:23 | NURSING ---
wound photo: right foot (medial view)
[2017-12-19] MEDS: Atorvastatin Calcium 40 MG Tablet PO (22:20)
[2017-12-19] MEDS: Senna Tablet 1 TABLET PO (22:20)
[2017-12-19] MEDS: Heparin Injection (Vial) 5,000 UNIT/ML VIAL 5000 UNIT SC (22:20)
[2017-12-20 02:44] VITALS: BP 119/66; PULSE 70; RESP 16; TEMP 36.8; O2SAT 98
[2017-12-20 03:06] VITALS: PULSE 70
[2017-12-20 06:20] LABS: Absolute Lymphocyte Count 0.97 X10^3/ul (0.83-4.51); Absolute Neutrophil Count 6.6 X10^3/uL (2.0-7.7); Basophil# 0.04 X10^3/uL; Basophil% 0.4 % (0-1); Eosinophil# 0.31 X10^3/uL; Eosinophils% 3.4 % (0-5); Hematocrit 28.5 % (40-54); Lymphocyte # 0.97 X10^3/ul (4.0); Lymphocyte % 10.6 % (19-41); Mean Corp Hgb Conc 31.6 g/gl (32-36); Mean Corpuscular Volume 88.8 fL (80-94); Mean Platelet Vol. 9.1 fl (6.2-12.0); Monocyte# 1.07 X10^3/uL; Monocyte% 11.7 % (0-10); Neutrophil % 71.9 % (47-70); Platelet Count 286 K/mm3 (150-450); RBC Distribution Width CV 14.1 % (11.6-14.6); RBC Distribution Width SD 46.3 fl (35.1-43.9); Red Blood Count 3.21 M/mm3 (4.6-6.2); White Blood Count 9.2 K/mm3 (4.4-11.0)
[2017-12-20 06:21] LABS: Differential Indicated SCAN CRITERIA MET; POSITIVE COUNT YES; POSITIVE DIFFERENTIAL NO; POSITIVE MORPHOLOGY YES
[2017-12-20 06:33] LABS: Anisocytosis 1+; Hypochromasia 1+
[2017-12-20] MEDS: Heparin Injection (Vial) 5,000 UNIT/ML VIAL 5000 UNIT SC (06:39)
[2017-12-20] MEDS: Levothyroxine 100 MCG Tablet PO (06:40)
[2017-12-20 06:56] LABS: Anion Gap 8 (5-15); BUN 72 mg/dL (7-18); BUN/Creat Ratio 34.1 RATIO (10-20); Calcium,Total 9.5 mg/dL (8.5-10.1); Chloride 102 mmol/L (98-107); Creatinine, Serum 2.11 mg/dL (0.70-1.30); EST Glomerular Filtration Rate 33 mL/min (>60); Est Glom Filt Rate - Afr Amer 40 mL/min (>60); Estimated Creatinine Clearance 29.72 ml/min; Glucose 121 mg/dL (74-106); Potassium 4.6 mmol/L (3.5-5.1); Sodium Level 140 mmol/L (136-145)
--- NOTE | 2017-12-20 06:58 | PCM.PROGNOTE ---
Patient Problems: Active and Suspected Problems (Last Reviewed 10/02/17 @ 14:38 by Nessa Jackson) Shortness of breath (Acute) Generalized leg edema (Acute) Subjective: Patient did well overnight. No acute issues were reported. Patient does report mild tenderness in the left leg, but otherwise no pain is reported. Patient is not reporting any cough or shortness of breath. Oxygenation does continue to improve. Objective: CT scan of the leg was personally reviewed and does show a large fluid collection on the medial aspect of the gastrocnemius. - Physical Exam General: Alert, Cooperative, No apparent distress, Disoriented, - - Speaking in full sentences. HEENT: Atraumatic, PERRLA, EOMI, Normocephalic, - - No scleral icterus or injection noted. Oral: Moist Mucosa, No Gingival or Mucosal Lesions/ Ulcerations Neck: Supple, No JVD, No Nodes, Trachea Midline Lungs: No rhonchi, No wheeze, No rales, Diminished, - - Symmetric expansion. No dullness to percussion. Cardiovascular: Regular rate, Regular Rhythm, Normal S1, Normal S2, No murmurs, No rub noted, No Gallop Abdomen: Bowel Sounds Present, Soft, Non Tender, Non-Distended Extremities: No clubbing, No cyanosis, Edema - Appears similar to previous, - - Unable to palpate fluctuance in the area of CT scan. Skin: No rashes, No breakdown, Incision - Slight erythema. Otherwise clean, dry and intact. Musculoskeletal: Tenderness - Palpation of the left lower extremity Lymphatic: No Cervical, Supraclavicular, or Inguinal Adenopathy Neurological: Cranial nerves II-XII grossly intact, Neuro grossly intact, Motor Exam 5/5 strength throughout Psych/Mental Status: Normal Affect, Appropriate Vital Signs Temp Pulse Resp BP Pulse Ox 36.8 C 70 16 119/66 98 12/20/17 02:44 12/20/17 03:06 12/20/17 02:44 12/20/17 02:44 12/20/17 02:44 Oxygen Flow Rate (L/min) 2 Oxygen Delivery Method Nasal Cannula Weight: 94.5 kg Body Mass Index (BMI) 33.5 Intake and Output for Last 24 Hours 12/18/17 12/19/17 12/20/17 23:59 23:59 23:59 Intake Total 800 / 800 400 / 400 460 / 460 Output Total 4500 / 4500 1979 / 1979 1800 / 1800 Balance -3700 / -3700 -1580 / -1580 -1340 / -1340 Microbiology Past 72 Hours 12/18/17 13:40 Gram Stain - Final Wound - Leg, Left Wound Culture - Preliminary Gram positive organism 12/15/17 10:50 Blood Culture - Preliminary Blood Culture (Wb) - Anticubital Right No growth in 48 hours. 12/15/17 10:45 Blood Culture - Preliminary Blood Culture (Wb) - Anticubital Left No growth in 48 hours. Laboratory Tests Past 24 Hrs 12/19/17 12/20/17 12/20/17 06:08 05:45 05:45 WBC 9.2 RBC 3.21 L Hgb 9.0 L Hct 28.5 L MCV 88.8 MCH 28.0 MCHC 31.6 L RDW 14.1 RDW Differential 46.3 H Plt Count 286 MPV 9.1 Immature Gran % (Auto) 2.000 H Neut % (Auto) 71.9 H Lymph % (Auto) 10.6 L [place] % (Auto) 11.7 H Eos % (Auto) 3.4 Baso % (Auto) 0.4 Absolute Neuts (auto) 6.6 Absolute Lymphs (auto) 0.97 Total Counted Not Reportable Differential Comment Diff Path Review May foll Hypochromasia 1+ Anisocytosis 1+ Sodium 139 140 Potassium 5.1 4.6 Chloride 103 102 Carbon Dioxide 28.0 30.0 Anion Gap 8 8 BUN 79 H 72 H Creatinine 2.38 H 2.11 H Estim Creat Clear Calc 26.34 29.72 Est GFR (MDRD) Af Amer 35 L 40 L Est GFR (MDRD) Non-Af 29 L 33 L BUN/Creatinine Ratio 33.2 H 34.1 H Glucose 129 H 121 H Calcium 9.5 9.5 Clinical Impression(s) from Imaging Studies Lower Extremity CT 12/19/17 13:15 IMPRESSION: 1. Large fluid density mass in the medial gastrocnemius muscle extending out to the skin surface. This suggests abscess. 2. Diffuse subcutaneous edema. 3. 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 4. Marked atherosclerotic changes of the visualized arterial structures. Electronically Signed: Christopher Butler DO at 16:53 EDT Tel [phone], Service support , Medical Necessity - Tobacco Use Smoking Status: Former smoker - 2yr h/o cigar smoking, 1-3/day Tobacco Use: Cigars Assessment/Plan Active and Suspected Problems (Last Reviewed 10/02/17 @ 14:38 by Nessa Jackson) Shortness of breath (Acute) Generalized leg edema (Acute) RECOMMENDATIONS 1. Wean oxygen supplementation to keep saturations 88-92%. Patient may be able to be weaned to room air at rest 2. Encourage incentive spirometer and Acapella 3. Increase activity as tolerated, PT/OT 4. Continue bronchodilators 5. BiPAP at night and PRN during day 6. Defer to primary service on intervention for leg abscess 7. Doubt thoracentesis given secondary infection site and leg. IMPRESSIONS 1. Right pleural effusion/left pleural plaques Patient's previous imaging did show a large right-sided pleural effusion and left pleural plaques. Patient has continued to improve in oxygenation with diuresis. Given patient's fluid collection in the leg, it is unlikely that this represents a parapneumonic effusion or empyema. It is unlikely that patient would require a thoracentesis during this hospitalization. 2. Congestive heart failure Improved after diuresis. Lasix de-escalated 12/16. Renal function improving, likely okay to continue with current Lasix dosing. Okay to discontinue BiPAP during the day. Patient would benefit from an outpatient sleep study 3. 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 Former patient of Dr. Botello through [facility]. No PFTs for several years. Had prior workup at asbestos clinic, who indicated to the patient and his ex- that he had a level of asbestosis. No further treatment pursued. Patient also had sleep study several years ago, could not afford Pap machine. He would benefit from repeat testing, if desired. Can be sent home with Ventolin inhaler to use PRN. The dilator use as an inpatient would be appropriate. 3. History of atrial fibrillation/hyperlipidemia/HTN/peripheral vascular disease/valvular heart disease/pacemaker Complicates care, management, recovery, and prognosis. Patient no longer on anticoagulation per NADIA García. Does take Plavix. Continue home medications as indicated. Discussed CODE STATUS with Raquel. She indicates patient would want temporary ventilator, if needed. She is agreeable to DNR CCA for the time being. Thank you for the opportunity to participate in this patient's care, please do not hesitate contact us with any further questions or concerns. This note was generated with Get[employer] dictation software. It may contain incorrect words, spelling, and punctuation that were not noted in checking the note before signing. Code Visit Inpatient E&M: 48315 Subs Hosp L2
[2017-12-20 07:23] VITALS: PULSE 70; RESP 18; O2SAT 95
[2017-12-20] MEDS: Ipratropium/Albuterol Sulfate 3 ML AMPUL.NEB INHALATION (07:23)
[2017-12-20 07:32] VITALS: PULSE 70
[2017-12-20 08:40] VITALS: BP 108/61; PULSE 70; RESP 20; TEMP 36.4; O2SAT 99
--- NOTE | 2017-12-20 08:52 | CASEMGMT ---
According to [facility] website, the following are in-network tertiary facilities: [place], [facility], [place], [facility], and . Rosie STALLWORTH CM
[2017-12-20] MEDS: Memantine Hydrochloride 10 MG Tablet PO (09:33)
[2017-12-20] MEDS: Ferrous Sulfate 325 MG Tablet PO (09:33)
[2017-12-20] MEDS: Furosemide 40 MG Tablet PO (09:33)
[2017-12-20] MEDS: amLODIPine 10 MG Tablet PO (09:33)
[2017-12-20] MEDS: Vitamin E 400 UNITS Capsule PO (09:33)
[2017-12-20] MEDS: Pantoprazole Sodium 40 MG Tablet PO (09:33)
[2017-12-20] MEDS: Clopidogrel Bisulfate 75 MG Tablet PO (09:33)
[2017-12-20] MEDS: Tamsulosin HCl 0.4 MG Capsule PO (09:33)
[2017-12-20] MEDS: Carvedilol 25 MG Tablet PO (09:33)
[2017-12-20] MEDS: Multivitamins,Therapeutic Tablet 1 TABLET PO (09:34)
[2017-12-20] MEDS: Acetaminophen 325 MG Tablet 650 MG PO (09:36)
--- NOTE | 2017-12-20 09:37 | NURSING ---
RN UPDATED DAUGHTER ERVIN ABOUT POC
--- NOTE | 2017-12-20 10:11 | PCM.PN.HOSP ---
Patient Problems: Active and Suspected Problems (Last Reviewed 10/02/17 @ 14:38 by Nessa Jackson) Heart failure with preserved ejection fraction (Acute) Gram-negative pneumonia (Acute) Pleural effusion (Acute) Leg mass (Acute) Subjective: Still with the swelling and pain in his leg. No other acute issues. Vitals/I&O's: Vital Signs Temp Pulse Resp BP Pulse Ox 36.4 C L 70 20 H 108/61 99 12/20/17 09:22 12/20/17 09:22 12/20/17 09:22 12/20/17 09:22 12/20/17 09:22 Oxygen Flow Rate (L/min) 2 Oxygen Delivery Method Nasal Cannula Weight: 94.5 kg Body Mass Index (BMI) 33.5 Intake and Output for Last 24 Hours 12/18/17 12/19/17 12/20/17 23:59 23:59 23:59 Intake Total 800 / 800 400 / 400 460 / 460 Output Total 4500 / 4500 1979 / 1979 1800 / 1800 Balance -3700 / -3700 -1580 / -1580 -1340 / -1340 General: Alert, Cooperative, No apparent distress HEENT: Atraumatic, Normocephalic Neck: No Nodes, Thyroid Normal Size and Texture Lungs: Clear to auscultation, Normal air movement, No rhonchi, No wheeze Cardiovascular: Regular rate, Regular Rhythm, Normal S1, Normal S2, No murmurs Abdomen: Bowel Sounds Present, Soft, Non Tender, Non-Distended, No Hepato-splenomegaly Extremities: No Calf Tenderness, Edema Skin: No rashes, No breakdown Psych/Mental Status: Normal Affect, Appropriate Microbiology Past 72 Hours 12/18/17 13:40 Wound - Leg, Left Gram Stain - Final 12/18/17 13:40 Wound - Leg, Left Wound Culture - Preliminary Gram positive organism 12/15/17 10:50 Blood Culture (Wb) - Anticubital Right Blood Culture - Preliminary No growth in 48 hours. 12/15/17 10:45 Blood Culture (Wb) - Anticubital Left Blood Culture - Preliminary No growth in 48 hours. Laboratory Results 12/20/17 05:45: WBC 9.2, RBC 3.21 L, Hgb 9.0 L, Hct 28.5 L, MCV 88.8, MCH 28.0, MCHC 31.6 L, RDW 14.1, RDW Differential 46.3 H, Plt Count 286, MPV 9.1, Immature Gran % (Auto) 2.000 H, Neut % (Auto) 71.9 H, Lymph % (Auto) 10.6 L, [place] % (Auto) 11.7 H, Eos % (Auto) 3.4, Baso % (Auto) 0.4, Absolute Neuts (auto) 6.6, Absolute Lymphs (auto) 0.97, Total Counted Not Reportable, Differential Comment , Diff Path Review May foll, Hypochromasia 1+, Anisocytosis 1+ 12/20/17 05:45: Sodium 140, Potassium 4.6, Chloride 102, Carbon Dioxide 30.0, Anion Gap 8, BUN 72 H, Creatinine 2.11 H, Estim Creat Clear Calc 29.72, Est GFR (MDRD) Af Amer 40 L, Est GFR (MDRD) Non-Af 33 L, BUN/Creatinine Ratio 34.1 H, Glucose 121 H, Calcium 9.5 Current Medications Acetaminophen (Tylenol) 650 mg PO Q6H PRN PRN PRN Reason: MOD-SEVERE PAIN (-06/10) Last Admin: 12/20/17 09:36 Dose: 650 mg Albuterol Sulfate (Ventolin Aerosols) 2.5 mg INHALATION Q2H PRN PRN PRN Reason: dyspnea, wheezing Last Admin: 12/13/17 23:56 Dose: 2.5 mg Albuterol/Ipratropium (Duoneb) 3 ml INHALATION Q6H.RT [facility] Last Admin: 12/20/17 07:23 Dose: 3 ml Amlodipine Besylate (Norvasc) 10 mg PO DAILY [facility] Last Admin: 12/20/17 09:33 Dose: 10 mg Atorvastatin Calcium (Lipitor) 40 mg PO QHS [facility] Last Admin: 12/19/17 22:20 Dose: 40 mg Carvedilol (Coreg) 25 mg PO BID [facility] Last Admin: 12/20/17 09:33 Dose: 25 mg Clopidogrel Bisulfate (Plavix) 75 mg PO DAILY [facility] Last Admin: 12/20/17 09:33 Dose: 75 mg Ferrous Sulfate (Ferrous Sulfate) 325 mg PO TIDCM [facility] Last Admin: 12/20/17 09:33 Dose: 325 mg Furosemide (Lasix) 40 mg PO BID@1000,1800 [facility] Last Admin: 12/20/17 09:33 Dose: 40 mg Guaifenesin (Robitussin) 10 ml PO Q4H PRN PRN PRN Reason: COUGH Heparin Sodium (Porcine) (Heparin Na) 5,000 unit SC Q8 [facility] Last Admin: 12/20/17 06:39 Dose: 5,000 u Hydralazine HCl (Apresoline Iv) 10 mg IV Q4H PRN PRN PRN Reason: SBP > 160 Levofloxacin (Levaquin Tablet) 750 mg PO Q48@0600 [facility] Last Admin: 12/19/17 06:03 Dose: 750 mg Levothyroxine Sodium (Synthroid) 100 mcg PO DAILY@0600 [facility] Last Admin: 12/20/17 06:40 Dose: 100 mcg Loperamide HCl (Imodium) 2 mg PO Q2H PRN PRN PRN Reason: loose stools Magnesium Hydroxide (Milk Of Magnesia) 30 ml PO .X1 PRN PRN Last Admin: 12/17/17 17:52 Dose: 30 ml Memantine (Namenda) 10 mg PO BID [facility] Last Admin: 12/20/17 09:33 Dose: 10 mg Multivitamins (Multivitamin) 1 tablet PO DAILY@0800 [facility] Last Admin: 12/20/17 09:34 Dose: 1 tablet Nutritional Formula (Lactose Free) (Ensure Enlive) 120 ml PO 4X/DAY [facility] Last Admin: 12/20/17 09:34 Dose: 120 ml Pantoprazole Sodium (Protonix) 40 mg PO DAILY [facility] Last Admin: 12/20/17 09:33 Dose: 40 mg Senna (Senokot) 1 tablet PO BID [facility] Last Admin: 12/20/17 09:34 Dose: Not Given Sodium Chloride () 5 - 30 ml IV UD PRN PRN Reason: SALINE FLUSH Last Admin: 12/17/17 10:53 Dose: 10 ml Tamsulosin HCl (Flomax) 0.4 mg PO DAILY [facility] Last Admin: 12/20/17 09:33 Dose: 0.4 mg Vitamin E (Vitamin E) 400 units PO DAILY [facility] Last Admin: 12/20/17 09:33 Dose: 400 units Zinc Sulfate (Zinc Sulfate) 220 mg PO DAILY [facility] Last Admin: 12/20/17 09:33 Dose: 220 mg Medical Necessity - Tobacco Use Smoking Status: Former smoker - 2yr h/o cigar smoking, 1-3/day Tobacco Use: Cigars Assessment/Plan Active and Suspected Problems (Last Reviewed 10/02/17 @ 14:38 by Nessa Jackson) Heart failure with preserved ejection fraction (Acute) Gram-negative pneumonia (Acute) Pleural effusion (Acute) Leg mass (Acute) 1. HFpEF EF 50% change lasix to 40 PO BID resume coreg no ACEi nor ARB given CKD/ANURAG 2. suspected gram negative pnuemonia. changed to levaquin and will continue through 12/22 ID following and recommend pulm eval for right pleural effusion to see if concern for infectious etiology given history of endocarditis pulmonary toilet cultures negative. 3. CKD 3 presumed chronic, but no baseline labs to review worse today 4. Pleural effusion: hold off on thoracentesis given clinical improvement follow up CXR in 1 month. 5. DVT proph SQ heparin. 6. PAD s/p arterila bypass on left incisions clean Duplex LLE negative. pt instructed to keep his leg elevated. Drainage from distal wound today. Discussed with wound care states that unable to express further fluid from it. Will check culture. If patient has increased drainage from this wound or if there is concern for infection then I would recommend CAT scan of his leg. Discussed with Dr. Parks who recommended keeping the patient's sutures in until he can follow-up with the patient in the office. check CT leg to eval for abscess. no obvious cellulitis. not felt to be infected per ID. Gram stain + GPC. 7. Left leg fluid collection This is adjacent to the patient's operative site measuring 4 x 3 x [address] Corona, on-call for Dr. Goddard, and explained that patient is not a fever and when I evaluated previously there is no evidence of any dehiscence nor any erythema though just with serous drainage. And the fact that patient was improving just with Levaquin. From the description I gave him he felt that this was not an abscess and it could be hematoma or seroma and recommended follow-up with Dr. Goddard for evaluation. He stated that the patient's surgeon will be in the vagina area on and that he could follow-up with them but appointment will need to be called and scheduled. Therefore, he does not feel is necessary for the patient to be transferred to [place] and that management can be performed here or back at the nursing facility.
--- NOTE | 2017-12-20 10:15 | PN_ITS ---
Patient Problems: Active and Suspected Problems (Last Reviewed 10/02/17 @ 14:38 by Nessa Jacskon) Heart failure with preserved ejection fraction (Acute) Gram-negative pneumonia (Acute) Pleural effusion (Acute) Leg mass (Acute) Subjective: Still with the swelling and pain in his leg. No other acute issues. Vitals/I&O's: Vital Signs Temp Pulse Resp BP Pulse Ox 36.4 C L 70 20 H 108/61 99 12/20/17 09:22 12/20/17 09:22 12/20/17 09:22 12/20/17 09:22 12/20/17 09:22 Oxygen Flow Rate (L/min) 2 Oxygen Delivery Method Nasal Cannula Weight: 94.5 kg Body Mass Index (BMI) 33.5 Intake and Output for Last 24 Hours 12/18/17 12/19/17 12/20/17 23:59 23:59 23:59 Intake Total 800 / 800 400 / 400 460 / 460 Output Total 4500 / 4500 1979 / 1979 1800 / 1800 Balance -3700 / -3700 -1580 / -1580 -1340 / -1340 General: Alert, Cooperative, No apparent distress HEENT: Atraumatic, Normocephalic Neck: No Nodes, Thyroid Normal Size and Texture Lungs: Clear to auscultation, Normal air movement, No rhonchi, No wheeze Cardiovascular: Regular rate, Regular Rhythm, Normal S1, Normal S2, No murmurs Abdomen: Bowel Sounds Present, Soft, Non Tender, Non-Distended, No Hepato- splenomegaly Extremities: No Calf Tenderness, Edema Skin: No rashes, No breakdown Psych/Mental Status: Normal Affect, Appropriate Microbiology Past 72 Hours 12/18/17 13:40 Wound - Leg, Left Gram Stain - Final 12/18/17 13:40 Wound - Leg, Left Wound Culture - Preliminary Gram positive organism 12/15/17 10:50 Blood Culture (Wb) - Anticubital Right Blood Culture - Preliminary No growth in 48 hours. 12/15/17 10:45 Blood Culture (Wb) - Anticubital Left Blood Culture - Preliminary No growth in 48 hours. Laboratory Results 12/20/17 05:45: WBC 9.2, RBC 3.21 L, Hgb 9.0 L, Hct 28.5 L, MCV 88.8, MCH 28.0, MCHC 31.6 L, RDW 14.1, RDW Differential 46.3 H, Plt Count 286, MPV 9.1, Immature Gran % (Auto) 2.000 H, Neut % (Auto) 71.9 H, Lymph % (Auto) 10.6 L, [place] % (Auto) 11.7 H, Eos % (Auto) 3.4, Baso % (Auto) 0.4, Absolute Neuts (auto ) 6.6, Absolute Lymphs (auto) 0.97, Total Counted Not Reportable, Differential Comment , Diff Path Review May foll, Hypochromasia 1+, Anisocytosis 1+ 12/20/17 05:45: Sodium 140, Potassium 4.6, Chloride 102, Carbon Dioxide 30.0, Anion Gap 8, BUN 72 H, Creatinine 2.11 H, Estim Creat Clear Calc 29.72, Est GFR (MDRD) Af Amer 40 L, Est GFR (MDRD) Non-Af 33 L, BUN/Creatinine Ratio 34.1 H, Glucose 121 H, Calcium 9.5 Current Medications Acetaminophen (Tylenol) 650 mg PO Q6H PRN PRN PRN Reason: MOD-SEVERE PAIN (-06/10) Last Admin: 12/20/17 09:36 Dose: 650 mg Albuterol Sulfate (Ventolin Aerosols) 2.5 mg INHALATION Q2H PRN PRN PRN Reason: dyspnea, wheezing Last Admin: 12/13/17 23:56 Dose: 2.5 mg Albuterol/Ipratropium (Duoneb) 3 ml INHALATION Q6H.RT [facility] Last Admin: 12/20/17 07:23 Dose: 3 ml Amlodipine Besylate (Norvasc) 10 mg PO DAILY [facility] Last Admin: 12/20/17 09:33 Dose: 10 mg Atorvastatin Calcium (Lipitor) 40 mg PO QHS [facility] Last Admin: 12/19/17 22:20 Dose: 40 mg Carvedilol (Coreg) 25 mg PO BID [facility] Last Admin: 12/20/17 09:33 Dose: 25 mg Clopidogrel Bisulfate (Plavix) 75 mg PO DAILY [facility] Last Admin: 12/20/17 09:33 Dose: 75 mg Ferrous Sulfate (Ferrous Sulfate) 325 mg PO TIDCM [facility] Last Admin: 12/20/17 09:33 Dose: 325 mg Furosemide (Lasix) 40 mg PO BID@1000,1800 [facility] Last Admin: 12/20/17 09:33 Dose: 40 mg Guaifenesin (Robitussin) 10 ml PO Q4H PRN PRN PRN Reason: COUGH Heparin Sodium (Porcine) (Heparin Na) 5,000 unit SC Q8 [facility] Last Admin: 12/20/17 06:39 Dose: 5,000 u Hydralazine HCl (Apresoline Iv) 10 mg IV Q4H PRN PRN PRN Reason: SBP > 160 Levofloxacin (Levaquin Tablet) 750 mg PO Q48@0600 [facility] Last Admin: 12/19/17 06:03 Dose: 750 mg Levothyroxine Sodium (Synthroid) 100 mcg PO DAILY@0600 [facility] Last Admin: 12/20/17 06:40 Dose: 100 mcg Loperamide HCl (Imodium) 2 mg PO Q2H PRN PRN PRN Reason: loose stools Magnesium Hydroxide (Milk Of Magnesia) 30 ml PO .X1 PRN PRN Last Admin: 12/17/17 17:52 Dose: 30 ml Memantine (Namenda) 10 mg PO BID [facility] Last Admin: 12/20/17 09:33 Dose: 10 mg Multivitamins (Multivitamin) 1 tablet PO DAILY@0800 [facility] Last Admin: 12/20/17 09:34 Dose: 1 tablet Nutritional Formula (Lactose Free) (Ensure Enlive) 120 ml PO 4X/DAY [facility] Last Admin: 12/20/17 09:34 Dose: 120 ml Pantoprazole Sodium (Protonix) 40 mg PO DAILY [facility] Last Admin: 12/20/17 09:33 Dose: 40 mg Senna (Senokot) 1 tablet PO BID [facility] Last Admin: 12/20/17 09:34 Dose: Not Given Sodium Chloride () 5 - 30 ml IV UD PRN PRN Reason: SALINE FLUSH Last Admin: 12/17/17 10:53 Dose: 10 ml Tamsulosin HCl (Flomax) 0.4 mg PO DAILY [facility] Last Admin: 12/20/17 09:33 Dose: 0.4 mg Vitamin E (Vitamin E) 400 units PO DAILY [facility] Last Admin: 12/20/17 09:33 Dose: 400 units Zinc Sulfate (Zinc Sulfate) 220 mg PO DAILY [facility] Last Admin: 12/20/17 09:33 Dose: 220 mg Medical Necessity - Tobacco Use Smoking Status: Former smoker - 2yr h/o cigar smoking, 1-3/day Tobacco Use: Cigars Assessment/Plan Active and Suspected Problems (Last Reviewed 10/02/17 @ 14:38 by Nessa Jackson) Heart failure with preserved ejection fraction (Acute) Gram-negative pneumonia (Acute) Pleural effusion (Acute) Leg mass (Acute) 1. HFpEF * EF 50% * change lasix to 40 PO BID * resume coreg * no ACEi nor ARB given CKD/ANURAG 2. suspected gram negative pnuemonia. * changed to levaquin and will continue through 12/22 * ID following and recommend pulm eval for right pleural effusion to see if concern for infectious etiology given history of endocarditis * pulmonary toilet * cultures negative. 3. CKD 3 * presumed chronic, but no baseline labs to review * worse today 4. Pleural effusion: * hold off on thoracentesis given clinical improvement * follow up CXR in 1 month. 5. DVT proph SQ heparin. 6. PAD * s/p arterila bypass on left * incisions clean * Duplex LLE negative. * pt instructed to keep his leg elevated. * Drainage from distal wound today. Discussed with wound care states that unable to express further fluid from it. Will check culture. If patient has increased drainage from this wound or if there is concern for infection then I would recommend CAT scan of his leg. * Discussed with Dr. Parks who recommended keeping the patient's sutures in until he can follow-up with the patient in the office. * check CT leg to eval for abscess. no obvious cellulitis. not felt to be infected per ID. Gram stain + GPC. 7. Left leg fluid collection * This is adjacent to the patient's operative site measuring 4 x 3 x 10 cm. * Discussed with Dr. Corona, on-call for Dr. Goddard, and explained that patient is not a fever and when I evaluated previously there is no evidence of any dehiscence nor any erythema though just with serous drainage. And the fact that patient was improving just with Levaquin. From the description I gave him he felt that this was not an abscess and it could be hematoma or seroma and recommended follow-up with Dr. Goddard for evaluation. He stated that the patient's surgeon will be in the vagina area on and that he could follow-up with them but appointment will need to be called and scheduled. Therefore, he does not feel is necessary for the patient to be transferred to [place] and that management can be performed here or back at the nursing facility.
--- NOTE | 2017-12-20 10:18 | PCM.TXEXTCAR ---
- Diet 12/12/17 17:12 Diet: Cardiac/Low Cholesterol Food consistency:: Regular Liquid Consistency:: Regular/Thin - Routine Orders/Code Status Enema Type: Fleetz Enema Frequency: Daily PRN Routine Lab Work: CBC, BMP Code Status: DNRCC-A - Wound(s) Right upper leg Wound Type: Surgical Incision Left leg Wound Type: Surgical Incision Dressing Change: Dry Sterile Dressing Rt foot Wound Type: healing incisions s/p amputation of toes Dressing Change: Adaptic with dry dressing Left upper leg Wound Type: Surgical Incision - Therapies Physical Therapy: Eval and Treat Occupational Therapy: Eval and Treat - Allergies/Procedures Done in Hospital Allergies/Adverse Reactions: Allergies aspirin Adverse Reaction (Intermediate, Verified 10/02/17 14:23) Unknown iodine Adverse Reaction (Unknown, Verified 10/02/17 14:23) Unknown Patient has one kidney, 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 PASP 53mmHg - Type of Care/Length of Stay Estimated LOS: Convalescent Care Less Than 30 days Type of Care Needed: Skilled Rehab Potential: Fair Prognosis: Fair - Additional Orders/Day of Discharge Day of Discharge: 12/20/17 - Dietary and Speech Recommendations Dietitian Recommendations/Changes: Suggest 1 pkt Wagner BID for wound healing - please order from pharmacy. Suggest continue Ensure Enlive on medpass for wound healing. - Follow Up Care Primary Care Physician: Murali Yusuf MD [Primary Care Provider] - Within 2 Weeks Please Follow Up With: Rupesh When: 1 week. Call for appointment.
--- NOTE | 2017-12-20 10:21 | TREXTCAR_ITS ---
- Diet 12/12/17 17:12 Diet: Cardiac/Low Cholesterol Food consistency:: Regular Liquid Consistency:: Regular/Thin - Routine Orders/Code Status Enema Type: Fleetz Enema Frequency: Daily PRN Routine Lab Work: CBC, BMP Code Status: DNRCC-A - Wound(s) Right upper leg Wound Type: Surgical Incision Left leg Wound Type: Surgical Incision Dressing Change: Dry Sterile Dressing Rt foot Wound Type: healing incisions s/p amputation of toes Dressing Change: Adaptic with dry dressing Left upper leg Wound Type: Surgical Incision - Therapies Physical Therapy: Eval and Treat Occupational Therapy: Eval and Treat - Allergies/Procedures Done in Hospital Allergies/Adverse Reactions: Allergies aspirin Adverse Reaction (Intermediate, Verified 10/02/17 14:23) Unknown iodine Adverse Reaction (Unknown, Verified 10/02/17 14:23) Unknown Patient has one kidney, 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 PASP 53mmHg - Type of Care/Length of Stay Estimated LOS: Convalescent Care Less Than 30 days Type of Care Needed: Skilled Rehab Potential: Fair Prognosis: Fair - Additional Orders/Day of Discharge Day of Discharge: 12/20/17 - Dietary and Speech Recommendations Dietitian Recommendations/Changes: Suggest 1 pkt Wagner BID for wound healing - please order from pharmacy. Suggest continue Ensure Enlive on medpass for wound healing. - Follow Up Care Primary Care Physician: Murali Yusuf MD [Primary Care Provider] - Within 2 Weeks Please Follow Up With: Rupesh When: 1 week. Call for appointment.
--- NOTE | 2017-12-20 10:21 | PCM.DC.SUM ---
Discharge Date and Diagnosis - Problem List Patient Problems: Active and Suspected Problems (Last Reviewed 10/02/17 @ 14:38 by Nessa Jackson) Leg mass (Acute) Pleural effusion (Acute) Gram-negative pneumonia (Acute) Heart failure with preserved ejection fraction (Acute) Date of Admission: 12/12/17 Date of Discharge: 12/20/17 - Primary Discharge Diagnosis Active and Suspected Problems (Last Reviewed 10/02/17 @ 14:38 by Nessa Jackson) Leg mass (Acute) Pleural effusion (Acute) Gram-negative pneumonia (Acute) Heart failure with preserved ejection fraction (Acute) - Secondary Discharge Diagnosis Chronic Problems (Last Reviewed 10/02/17 @ 14:38 by Nessa Jackson) Atherosclerotic heart disease of [place] coronary artery without angina pectoris (Chronic) Hypertension (Chronic) Hospital Course and Treatment Imaging Results: Clinical Impression(s) from Imaging Studies Chest X-Ray 12/12/17 14:41 IMPRESSION: Cardiomegaly. CHF with small bilateral pleural effusions and bibasilar atelectasis. Electronically Signed: Vadim Ortiz MD at 15:06 EDT Tel [phone], Service support , Chest CT 12/12/17 15:25 IMPRESSION: There is a moderate to large right pleural effusion with atelectasis and/or consolidation. There is mild central vascular congestion Left pleural thickening and plaquing. This may represent prior procedure and/or history of infection. Cardiomegaly pacer defibrillator leads status post sternotomy. 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 Electronically Signed: Zeinab Yo MD at 16:40 EDT Tel , Service support , Chest X-Ray 12/13/17 05:55 IMPRESSION: Stable chest bilateral effusions and lower lobe atelectasis. Cardiomegaly status post sternotomy defibrillator leads as detailed above. Electronically Signed: Zeinab Yo MD at 8:29 EDT Tel , Service support , Chest X-Ray 12/14/17 05:55 IMPRESSION: Right pleural effusion and atelectasis and/or consolidation. Left pleural effusion, pleural thickening and plaquing. Status post sternotomy pacemaker defibrillator. Cardiac valve prosthesis. Electronically Signed: Zeinab Yo MD at 8:37 EDT Tel , Service support , Lower Extremity CT 12/19/17 13:15 IMPRESSION: 1. Large fluid density mass in the medial gastrocnemius muscle extending out to the skin surface. This suggests abscess. 2. Diffuse subcutaneous edema. 3. 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 4. Marked atherosclerotic changes of the visualized arterial structures. Electronically Signed: Christopher Butler DO at 16:53 EDT Tel [phone], Service support , Consultations 12/17/17 11:06 Consult: Onc/Wound/motorcycle tester Routine Comment: Reason for Consult:: incision with drainage to right foot Operations: None Procedures: 2-D Echocardiogram Summary of Care Provided: The patient is a 72 year old M presents with shortness of breath and edema. Patient was started on Lasix was concern for pneumonia trigger H. Patient started broad-spectrum antibiotics. Infectious disease was consulted. Patient as he is concerned about the patient's pleural effusion and will need to be tapped. Pulmonology was called and did not feel that was necessary. The patient for infection standpoint did improve but patient did have a CAT scan of his leg that did show a large fluid mass in his left leg. Discussed with a vascular surgeon at [facility] who felt that that was probably a hematoma or seroma. Patient overall is doing better but overall has a very poor performance status. Patient be discharged to half-way facility in stable condition. See below for further details. 1. HFpEF EF 50% change lasix to 40 PO BID resume coreg no ACEi nor ARB given CKD/ANURAG 2. suspected gram negative pnuemonia. changed to levaquin and will continue through 12/22 ID following and recommend pulm eval for right pleural effusion to see if concern for infectious etiology given history of endocarditis pulmonary toilet cultures negative. 3. CKD 3 presumed chronic, but no baseline labs to review worse today 4. Pleural effusion: hold off on thoracentesis given clinical improvement follow up CXR in 1 month. 5. PAD s/p arterila bypass on left incisions clean Duplex LLE negative. pt instructed to keep his leg elevated. Drainage from distal wound today. Discussed with wound care states that unable to express further fluid from it. Will check culture. If patient has increased drainage from this wound or if there is concern for infection then I would recommend CAT scan of his leg. Discussed with Dr. Parks who recommended keeping the patient's sutures in until he can follow-up with the patient in the office. check CT leg to eval for abscess. no obvious cellulitis. not felt to be infected per ID. Gram stain + GPC. 8. Left leg fluid collection This is adjacent to the patient's operative site measuring 4 x 3 x [address] Corona, on-call for Dr. Goddard, and explained that patient is not a fever and when I evaluated previously there is no evidence of any dehiscence nor any erythema though just with serous drainage. And the fact that patient was improving just with Levaquin. From the description I gave him he felt that this was not an abscess and it could be hematoma or seroma and recommended follow-up with Dr. Goddard for evaluation. He stated that the patient's surgeon will be in the vagina area on and that he could follow-up with them but appointment will need to be called and scheduled. Therefore, he does not feel is necessary for the patient to be transferred to [facility] and that management can be performed here or back at the nursing facility. [] Discharge Diet: Low fat/ Low Cholesterol, 6 Cup Fluid Restriction, 2000 mg Sodium Diet Discharge Activity: Return to Normal Activity Call your doctor if you observe: Fever of 101 or Higher, Shortness of breath, Chest pain Home Medications: Medications to take at Discharge acetaminophen 325 mg capsule 650 mg PO Q4H PRN 10/01/17 acetaminophen 650 mg rectal suppository 650 mg RC Q4H PRN supp 10/01/17 aluminum-magnesium hydroxide 225 mg-200 mg/5 mL oral suspension 30 ml PO Q4H PRN 10/01/17 amlodipine 10 mg tablet 10 mg PO DAILY 10/01/17 ascorbic acid (vitamin C) 250 mg tablet 250 mg PO DAILY 10/01/17 atorvastatin 40 mg tablet 40 mg PO DAILY 10/01/17 bisacodyl 10 mg rectal suppository 10 mg RC DAILY PRN PRN 10/01/17 carvedilol 25 mg tablet 25 mg PO BID 10/01/17 clopidogrel 75 mg tablet 75 mg PO DAILY 10/01/17 ferrous sulfate 325 mg (65 mg iron) tablet 325 mg PO TID tab 10/01/17 glucagon (human recombinant) 1 mg injection kit 1 mg IM ONCE 10/01/17 ipratropium-albuterol 0.5 mg-3 mg(2.5 mg base)/3 mL nebulization soln 3 ml INHALATION Q6H ml 10/01/17 levothyroxine 100 mcg capsule 100 mcg PO DAILY cap 10/01/17 magnesium hydroxide 400 mg/5 mL oral suspension 30 ml PO ONCE 10/01/17 memantine 10 mg tablet 10 mg PO BID 10/01/17 multivitamin tablet 1 tab PO DAILY 10/01/17 pantoprazole 40 mg tablet,delayed release 40 mg PO DAILY 10/01/17 sennosides 8.6 mg tablet 8.6 mg PO BID 10/01/17 tamsulosin 0.4 mg capsule 0.4 mg PO DAILY 10/01/17 vitamin E (dl, acetate) 400 unit capsule 400 unit PO DAILY 10/01/17 zinc sulfate 220 mg (50 mg) capsule 220 mg PO DAILY cap 10/01/17 linagliptin 5 mg tablet 5 mg PO DAILY 10/02/17 Guaifenesin 10 ml PO PRN PRN 11/19/17 Furosemide [Lasix] 40 mg PO BID@1000,1800 tablet 12/20/17 levoFLOXacin tablet [Levaquin tablet] 750 mg PO Q48@0600 tablet 12/20/17 Primary Care Physician: Murali Yusuf MD [Primary Care Provider] - Within 2 Weeks Please Follow Up With: Rupesh When: 1 week. Call for appointment. Disposition: Custodial facility Minutes spent on discharge:: 45 Patient Condition:: Fair Medical Necessity - Tobacco Use Smoking Status: Former smoker - 2yr h/o cigar smoking, 1-3/day Tobacco Use: Cigars Meaningful Use Info Meaningful Use Diagnoses (Choose all that apply): CHF - CHF CHAN/ARB ordered at discharge?: No Reason CHAN/ARB not ordered?: Worsening renal disease Documented LVEF (%): 50 Code Visit Inpatient E&M: 71452 Disch Hosp
--- NOTE | 2017-12-20 10:24 | DS.PCM_ITS ---
Discharge Date and Diagnosis - Problem List Patient Problems: Active and Suspected Problems (Last Reviewed 10/02/17 @ 14:38 by Nessa Jackson) Leg mass (Acute) Pleural effusion (Acute) Gram-negative pneumonia (Acute) Heart failure with preserved ejection fraction (Acute) Date of Admission: 12/12/17 Date of Discharge: 12/20/17 - Primary Discharge Diagnosis Active and Suspected Problems (Last Reviewed 10/02/17 @ 14:38 by Nessa Jackson) Leg mass (Acute) Pleural effusion (Acute) Gram-negative pneumonia (Acute) Heart failure with preserved ejection fraction (Acute) - Secondary Discharge Diagnosis Chronic Problems (Last Reviewed 10/02/17 @ 14:38 by Nessa Jackson) Atherosclerotic heart disease of [place] coronary artery without angina pectoris (Chronic) Hypertension (Chronic) Hospital Course and Treatment Imaging Results: Clinical Impression(s) from Imaging Studies Chest X-Ray 12/12/17 14:41 IMPRESSION: Cardiomegaly. CHF with small bilateral pleural effusions and bibasilar atelectasis. Electronically Signed: Vadim Ortiz MD at 15:06 EDT Tel [phone], Service support , Chest CT 12/12/17 15:25 IMPRESSION: There is a moderate to large right pleural effusion with atelectasis and/or consolidation. There is mild central vascular congestion Left pleural thickening and plaquing. This may represent prior procedure and/or history of infection. Cardiomegaly pacer defibrillator leads status post sternotomy. 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 Electronically Signed: Zeinab Yo MD at 16:40 EDT Tel , Service support , Chest X-Ray 12/13/17 05:55 IMPRESSION: Stable chest bilateral effusions and lower lobe atelectasis. Cardiomegaly status post sternotomy defibrillator leads as detailed above. Electronically Signed: Zeinab Yo MD at 8:29 EDT Tel , Service support , Chest X-Ray 12/14/17 05:55 IMPRESSION: Right pleural effusion and atelectasis and/or consolidation. Left pleural effusion, pleural thickening and plaquing. Status post sternotomy pacemaker defibrillator. Cardiac valve prosthesis. Electronically Signed: Zeinab Yo MD at 8:37 EDT Tel , Service support , Lower Extremity CT 12/19/17 13:15 IMPRESSION: 1. Large fluid density mass in the medial gastrocnemius muscle extending out to the skin surface. This suggests abscess. 2. Diffuse subcutaneous edema. 3. 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 4. Marked atherosclerotic changes of the visualized arterial structures. 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 Patient was started on Lasix was concern for pneumonia trigger H. Patient started broad-spectrum antibiotics. Infectious disease was consulted. Patient as he is concerned about the patient's pleural effusion and will need to be tapped. Pulmonology was called and did not feel that was necessary. The patient for infection standpoint did improve but patient did have a CAT scan of his leg that did show a large fluid mass in his left leg. Discussed with a vascular surgeon at [facility] who felt that that was probably a hematoma or seroma. Patient overall is doing better but overall has a very poor performance status. Patient be discharged to halfway facility in stable condition. See below for further details. 1. HFpEF * EF 50% * change lasix to 40 PO BID * resume coreg * no ACEi nor ARB given CKD/ANURAG 2. suspected gram negative pnuemonia. * changed to levaquin and will continue through 12/22 * ID following and recommend pulm eval for right pleural effusion to see if concern for infectious etiology given history of endocarditis * pulmonary toilet * cultures negative. 3. CKD 3 * presumed chronic, but no baseline labs to review * worse today 4. Pleural effusion: * hold off on thoracentesis given clinical improvement * follow up CXR in 1 month. 5. PAD * s/p arterila bypass on left * incisions clean * Duplex LLE negative. * pt instructed to keep his leg elevated. * Drainage from distal wound today. Discussed with wound care states that unable to express further fluid from it. Will check culture. If patient has increased drainage from this wound or if there is concern for infection then I would recommend CAT scan of his leg. * Discussed with Dr. Parks who recommended keeping the patient's sutures in until he can follow-up with the patient in the office. * check CT leg to eval for abscess. no obvious cellulitis. not felt to be infected per ID. Gram stain + GPC. 8. Left leg fluid collection * This is adjacent to the patient's operative site measuring 4 x 3 x 10 cm. * Discussed with Dr. Corona, on-call for Dr. Goddard, and explained that patient is not a fever and when I evaluated previously there is no evidence of any dehiscence nor any erythema though just with serous drainage. And the fact that patient was improving just with Levaquin. From the description I gave him he felt that this was not an abscess and it could be hematoma or seroma and recommended follow-up with Dr. Gdodard for evaluation. He stated that the patient's surgeon will be in the vagina area on and that he could follow-up with them but appointment will need to be called and scheduled. Therefore, he does not feel is necessary for the patient to be transferred to [facility] and that management can be performed here or back at the nursing facility. [] Discharge Diet: Low fat/ Low Cholesterol, 6 Cup Fluid Restriction, 2000 mg Sodium Diet Discharge Activity: Return to Normal Activity Call your doctor if you observe: Fever of 101 or Higher, Shortness of breath, Chest pain Home Medications: Medications to take at Discharge acetaminophen 325 mg capsule 650 mg PO Q4H PRN 10/01/17 acetaminophen 650 mg rectal suppository 650 mg RC Q4H PRN supp 10/01/17 aluminum-magnesium hydroxide 225 mg-200 mg/5 mL oral suspension 30 ml PO Q4H PRN 10/01/17 amlodipine 10 mg tablet 10 mg PO DAILY 10/01/17 ascorbic acid (vitamin C) 250 mg tablet 250 mg PO DAILY 10/01/17 atorvastatin 40 mg tablet 40 mg PO DAILY 10/01/17 bisacodyl 10 mg rectal suppository 10 mg RC DAILY PRN PRN 10/01/17 carvedilol 25 mg tablet 25 mg PO BID 10/01/17 clopidogrel 75 mg tablet 75 mg PO DAILY 10/01/17 ferrous sulfate 325 mg (65 mg iron) tablet 325 mg PO TID tab 10/01/17 glucagon (human recombinant) 1 mg injection kit 1 mg IM ONCE 10/01/17 ipratropium-albuterol 0.5 mg-3 mg(2.5 mg base)/3 mL nebulization soln 3 ml INHALATION Q6H ml 10/01/17 levothyroxine 100 mcg capsule 100 mcg PO DAILY cap 10/01/17 magnesium hydroxide 400 mg/5 mL oral suspension 30 ml PO ONCE 10/01/17 memantine 10 mg tablet 10 mg PO BID 10/01/17 multivitamin tablet 1 tab PO DAILY 10/01/17 pantoprazole 40 mg tablet,delayed release 40 mg PO DAILY 10/01/17 sennosides 8.6 mg tablet 8.6 mg PO BID 10/01/17 tamsulosin 0.4 mg capsule 0.4 mg PO DAILY 10/01/17 vitamin E (dl, acetate) 400 unit capsule 400 unit PO DAILY 10/01/17 zinc sulfate 220 mg (50 mg) capsule 220 mg PO DAILY cap 10/01/17 linagliptin 5 mg tablet 5 mg PO DAILY 10/02/17 Guaifenesin 10 ml PO PRN PRN 11/19/17 Furosemide [Lasix] 40 mg PO BID@1000,1800 tablet 12/20/17 levoFLOXacin tablet [Levaquin tablet] 750 mg PO Q48@0600 tablet 12/20/17 Primary Care Physician: Murali Yusuf MD [Primary Care Provider] - Within 2 Weeks Please Follow Up With: Rupesh When: 1 week. Call for appointment. [facility] Minutes spent on discharge:: 45 Patient Condition:: Fair Medical Necessity - Tobacco Use Smoking Status: Former smoker - 2yr h/o cigar smoking, 1-3/day Tobacco Use: Cigars Meaningful Use Info Meaningful Use Diagnoses (Choose all that apply): CHF - CHF CHAN/ARB ordered at discharge?: No Reason CHAN/ARB not ordered?: Worsening renal disease Documented LVEF (%): 50 Code Visit Inpatient E&M: 82547 Disch Hosp
[2017-12-20 11:16] VITALS: PULSE 70
[2017-12-22 10:03] LABS: Pathologist Review Reviewed
== END 2017-12-20 12:35 | disposition skilled nursing facility (03) | DRG 291 ==
LOC: ED 17:32 → PCU 17:54
PROVIDERS: Family Medicine; Internal Medicine Critical Care Medicine; Admitting Provider Internal Medicine; Emergency Provider Emergency Medicine; Family Provider Family Medicine; PCP Family Medicine
DX: I13.0 Hypertensive heart and chronic kidney disease with heart failure and stage 1 through stage 4 chronic kidney disease, or unspecified chronic kidney disease (principal); I50.31 Acute diastolic (congestive) heart failure; J44.0 Chronic obstructive pulmonary disease with (acute) lower respiratory infection; G30.9 Alzheimer's disease, unspecified; F02.80 Dementia in other diseases classified elsewhere, unspecified severity, without behavioral disturbance, psychotic disturbance, mood disturbance, and anxiety; R74.8 Abnormal levels of other serum enzymes; E11.22 Type 2 diabetes mellitus with diabetic chronic kidney disease; N18.3 Chronic kidney disease, stage 3 (moderate); T87.89 Other complications of amputation stump; E11.51 Type 2 diabetes mellitus with diabetic peripheral angiopathy without gangrene; I48.91 Unspecified atrial fibrillation; I25.10 Atherosclerotic heart disease of native coronary artery without angina pectoris; I27.20 Pulmonary hypertension, unspecified; E78.5 Hyperlipidemia, unspecified; Z77.090 Contact with and (suspected) exposure to asbestos; Z79.84 Long term (current) use of oral hypoglycemic drugs; Z79.02 Long term (current) use of antithrombotics/antiplatelets; Z79.899 Other long term (current) drug therapy; Z95.810 Presence of automatic (implantable) cardiac defibrillator; Z95.820 Peripheral vascular angioplasty status with implants and grafts; Z95.1 Presence of aortocoronary bypass graft; Z89.411 Acquired absence of right great toe; Z89.421 Acquired absence of other right toe(s); Z87.891 Personal history of nicotine dependence
CPT/HCPCS: 36415; 71045; 71250; 73700; 80048; 81001; 83605; 83615; 83735; 84156; 84484; 85025; 85027; 85379; 85610; 87040; 87070; 87077; 87186; 87205; 87449; 87640; 93005; 93306; 93970; 93971; 94640; 94667; 94668; 97110; 97116; 97162; 97166; 97530; 97802; 97803; 99285; J7050; Q9957; Q9967; A4216; J1940

== ENCOUNTER → 2018-04-02 12:29 | Outpatient (CLI) | payer MEDICARE, SELFPAY ==
[2018-04-02 13:22] VITALS: PULSE 73; PULSE 74; PULSE 75; PULSE 76; PULSE 79; PULSE 82; O2SAT 88; O2SAT 89; O2SAT 90; O2SAT 91; O2SAT 92; O2SAT 93; O2SAT 97
--- NOTE | 2018-04-03 10:58 | WT_ITS ---
PSN 6 Minute Walk Test - 6 Minute Walk Test 6 Minute Walk Test: 6 Minute Walk Test PSN:6-Minute Walk Test Start: 04/02/18 13: 22 Freq: Status: Active Protocol: [id number] Document 04/02/18 13:22 SMB (Rec: 04/02/18 13:27 SMB [id number]) 6 Minute Walk Test Date Performed 04/02/18 Time Performed 12:44 Height 5 ft 8 in Weight: 199 lb Weight in Pounds [address]: Earnest Thakur Pre-test Oxygen Delivery Method Room Air Pulse Ox (%) 93 Pulse Rate (60-100 beats/min) 75 1st minute Oxygen Delivery Method Room Air Pulse Ox (%) 92 Pulse Rate (60-100 beats/min) 76 2nd minute Oxygen Delivery Method Room Air Pulse Ox (%) 90 Pulse Rate (60-100 beats/min) 75 3rd minute Oxygen Delivery Method Room Air Pulse Ox (%) 89 Pulse Rate (60-100 beats/min) 73 4th minute Oxygen Flow Rate (L/min) (L/min) 2 Oxygen Delivery Method Nasal Cannula Pulse Ox (%) 91 Pulse Rate (60-100 beats/min) 74 5th minute Oxygen Flow Rate (L/min) (L/min) 2 Oxygen Delivery Method Nasal Cannula Pulse Ox (%) 92 Pulse Rate (60-100 beats/min) 74 6th minute Oxygen Flow Rate (L/min) (L/min) 3 Oxygen Delivery Method Nasal Cannula Pulse Ox (%) 88 Pulse Rate (60-100 beats/min) 79 Reported Symptoms Increased Work of Breathing Post-test Oxygen Flow Rate (L/min) (L/min) 3 Oxygen Delivery Method Nasal Cannula Pulse Ox (%) 97 Pulse Rate (60-100 beats/min) 82 Dyspnea Luther Scale (0-10) 5 Exertion Luther Scale (6-20) 12 Full Laps Walked 6 Partial Lap, Number of Tiles Walked 5 Total Distance Walked (ft) 359 - Interpretation Interpretation: The patient ambulated 359 feet over the course of 6 minutes beginning on room air with use of a walker. Pretesting oxygen saturation was noted to be 94% on room air. With ambulation, the patient initially desaturated to 87% at minute 3 of testing. 2 L of oxygen was applied. However, the patient again desaturated to 88% at minute 6 of testing, requiring an escalation in his supplemental oxygen flow rate to 3 L/min. This testing indicated significant exertional oxygen desaturation. - Recommendations Recommendations: 3 L/min of supplemental oxygen should be utilized with exertion.
== END ==
PROVIDERS: Family Provider Family Medicine; PCP Family Medicine; Visit Provider Internal Medicine Critical Care Medicine
DX: J96.11 Chronic respiratory failure with hypoxia (principal); R06.02 Shortness of breath
CPT/HCPCS: 94618

== ENCOUNTER 2018-04-10 16:19 | Emergency (ER) | payer MEDICARE, SELFPAY ==
[2018-04-10 16:24] VITALS: BP 125/79; PULSE 81; RESP 20; TEMP 37.1; O2SAT 95; BMI 31.1
--- NOTE | 2018-04-10 16:43 | ED.VIS.GEN ---
History of Present Illness Chief Complaint: Back Informant: Patient Limited by: Dementia Onset: Yesterday Context: - - unknown Timing: Continuous Quality: pain Location: entire back, middle Current Severity: Severe Maximum Severity: Severe Worsened by: nothing - no change w/ movement of any kind. nonexertional. Relieved by: nothing Associated Symptoms: none Narrative: Patient is in assisted living at [facility]. Does have some dementia which limits the history to some degree, such as when asked if he is on a blood thinner he states a little bit. He states the pain started yesterday throughout the entire back but not including his neck and no radiation into any extremity. He does not recall what he was doing. He does walk and states that it does not alter the discomfort at all when he is walking versus resting. He denies any abdominal or chest discomfort. No shortness of breath, the discomfort in his back is nonpleuritic. He denies any fever or cough. No nausea. He states he has a pig valve but does not know which one. He states that his left leg has been red and hot since August last year when the vein was harvested out of it. He states that the vein was taken out and put in the other one. He states he is sure that his hot red leg is not new or changed recently. - Past Medical History (1) Atrial fibrillation Status: Chronic (2) Generalized leg edema Status: Chronic (3) Heart failure with preserved ejection fraction Status: Chronic (4) Hyperlipidemia Status: Chronic (5) Leg mass Status: Chronic (6) PAD (peripheral artery disease) Status: Chronic (7) Pleural effusion Status: Chronic (8) Valvular heart disease Status: Chronic (9) Atherosclerotic heart disease of [place] coronary artery without angina pectoris Status: Chronic (10) Hypertension Status: Chronic (11) Presence of implantable cardioverter-defibrillator (ICD) Status: Chronic (12) Aortic aneurysm of unspecified site, without rupture Status: Chronic (13) GERD (gastroesophageal reflux disease) Status: Chronic (14) COPD (chronic obstructive pulmonary disease) Status: Chronic (15) Chronic kidney disease, stage III (moderate) Status: Chronic (16) Other Alzheimer's disease Status: Chronic Past Medical History - Allergies and Home Meds Allergies/Adverse Reactions: Allergies aspirin Adverse Reaction (Intermediate, Verified 04/10/18 16:23) Unknown iodine Adverse Reaction (Unknown, Verified 04/10/18 16:23) Unknown Patient has one kidney, dock clerk wanted it listed as allergy Primary Care Physician: Murali Yusuf MD [Primary Care Provider] - Surgical History: - - Patient had bypass surgery on his left leg approximately 1 month ago, 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 Lives: Shelter Smoking Status: Former smoker - Family History Maternal Family History: Family History (Last Reviewed 04/01/18 @ 14:43 by Allison Sow) Mother CAD (coronary artery disease) Father CAD (coronary artery disease) Brother CAD (coronary artery disease) Sister CAD (coronary artery disease) Family History: Reports: No pertinent history Paternal Family History: Family History (Last Reviewed 04/01/18 @ 14:43 by Allison Sow) Mother CAD (coronary artery disease) Father CAD (coronary artery disease) Brother CAD (coronary artery disease) Sister CAD (coronary artery disease) Family History: Reports: No pertinent history Review of Systems All systems negative except as indicated General: Denies: Fever Eyes: Denies: Visual changes - bilaterally ENT: Denies: Bilateral ear pain Cardiovascular: Denies: Chest pain, Palpitations, Heart racing Respiratory: Denies: Dyspnea, Cough Gastrointestinal: Denies: Abdominal pain, Nausea, Vomiting, Diarrhea Genitourinary: Denies: Dysuria, Hematuria, Frequency Musculoskeletal: Reports: Back pain, Swelling, Extremity Pain. Denies: Myalgias, Neck pain Neurological: Denies: Headache, Weakness, Parasthesia, Numbness Physical Exam Vital Signs/Narrative: Vital Signs Temp Pulse Resp BP Pulse Ox 04/10/18 16:24 98.8 F 81 20 H 125/79 H 95 Inital Vital Signs reviewed: Yes General: Well nourished, Well developed Head: Normocephalic, Atraumatic Eyes: Perrl, EOMI ENT: Moist mucous membranes, No rhinorrhea Neck: Supple, Nontender Cardiovascular: Regular rate, Regular rhythm, No murmurs Respiratory: No distress, CTA bilaterally, Chest nontender, Diminished - Diffusely, symmetrically, - - No splinting on deep inspiration Abdomen: Soft, Nontender, Nondistended, Normal bowel sounds. Negative for: Mass, Pulsatile mass Back: Nontender, Normal Inspection, - - No change in pain when actively sitting up. Negative for: CVA tenderness, Spinal tenderness Extremities: Tenderness - Mild throughout hot, erythematous left lower extremity, distal to knee, Edema - 1+ distal left lower extremity Skin: Normal color, No rash, - - Blanching erythema left lower extremity lower leg, no other lesions or bullae or crepitance or lymphangitis Neurological: Alert, Cranial nerves II-XII grossly intact, Normal Strength, Normal Sensation, Disoriented - To time only Psychological: Normal affect Diagnostic/Tx/Re-eval Impressions Chest X-Ray 04/10/18 16:51 IMPRESSION: Cardiopulmonary features described above are likely to reflect CHF in the setting of chronic cardiac disease. Electronically Signed: Jerome Chacko, at 17:11 EDT Tel , Service support , Abdomen/Pelvis CT 04/10/18 17:55 IMPRESSION: Similar appearing moderate volume right effusion right lower lobe atelectasis and/or consolidation. Cardiomegaly defibrillator. Atrophied left kidney 7.7 mm calcification in the renal parenchyma and/or hyperdense cystic structure. Evidence of old granulomatous disease Nonspecific pneumobilia which may be related to reflux or potentially recent procedure. Infection is thought to be less likely but not entirely excluded. Status post right hip arthroplasty. Degenerative changes lower lumbar spine especially L4-L5. Electronically Signed: Zeinab Yo MD at 18:49 EDT Tel , Service support , Chest CT 04/10/18 17:55 IMPRESSION: There is persistent moderate volume right effusion with right lower lobe consolidation recommend consideration for bronchoscopy if appropriate Multiple infectious reactive if not metastatic lymph nodes demonstrated. Cardiomegaly coronary artery disease defibrillator Pneumobilia indeterminate in origin. Degenerative changes of thoracic spine. Electronically Signed: Zeinab Yo MD at 18:52 EDT Tel , Service support , 04/10/18 16:51 Chest 1 View (Portable) [RAD] Stat 04/10/18 17:55 CT Abd [Abdomen/Pelvis without Cont] [CT] Stat Chest without Contrast [CT] Stat Laboratory Results 04/10/18 04/10/18 04/10/18 Range/Units 16:30 16:30 17:40 WBC 18.7 H (4.4-11.0) K/mm3 RBC 4.29 L (4.6-6.2) M/mm3 Hgb 11.7 L (13.0-16.5) g/dl Hct 36.7 L (40-54) % MCV 85.5 (80-94) fL MCH 27.3 (27.0-32.0) pg MCHC 31.9 L (32-36) g/gl RDW 13.6 (11.6-14.6) % RDW Differential 42.3 (35.1-43.9) fl Plt Count 291 (150-450) K/mm3 MPV 9.5 (6.2-12.0) fl Immature Gran % (Auto) 0.200 (0.0-0.9) % Neut % (Auto) 85.9 H (47-70) % Lymph % (Auto) 4.4 L (19-41) % [place] % (Auto) 8.0 (0-10) % Eos % (Auto) 1.3 (0-5) % Baso % (Auto) 0.2 (0-1) % Absolute Neuts (auto) 16.1 H (2.0-7.7) X10^3/uL Absolute Lymphs (auto) 0.83 (0.83-4.51) X10^3/ul Total Counted Not Reportable Sodium 134 L (136-145) mmol/L Potassium 4.3 (3.5-5.1) mmol/L Chloride 93 L (98-107) mmol/L Carbon Dioxide 36.0 H (21.0-32.0) mmol/L Anion Gap 5 (5-15) BUN 77 H (7-18) mg/dL Creatinine 2.53 H (0.70-1.30) mg/dL Estim Creat Clear Calc 24.41 ml/min Est GFR (MDRD) Af Amer 32 L (>60) mL/min Est GFR (MDRD) Non-Af 27 L (>60) mL/min BUN/Creatinine Ratio 30.4 H (10-20) RATIO Glucose 173 H (74-106) mg/dL Calcium 9.7 (8.5-10.1) mg/dL Total Bilirubin 0.50 (0.20-1.00) mg/dL AST 17 (15-37) U/L ALT 17 (16-61) U/L Alkaline Phosphatase 155 H (45-117) U/L Troponin I < 0.015 (<0.045) ng/mL Total Protein 8.6 H (6.4-8.2) g/dL Albumin 3.5 (3.2-5.0) g/dL Globulin 5.1 H (2.2-4.2) g/dL Albumin/Globulin Ratio 0.7 L (0.9-2.4) RATIO Urine Color Yellow (Yellow) Urine Clarity Clear (Clear) Urine pH 7.0 (5.0 - 8.0) Ur Specific [place] 1.005 (1.002-1.030) Urine Protein 30 H (Negative) mg/dl Urine Glucose (UA) Normal (Normal) mg/dl Urine Ketones Negative (Negative) mg/dl Urine Occult Blood Negative (Negative) /ul Urine Nitrite Negative (Negative) Urine Bilirubin Negative (Negative) mg/dL Urine Urobilinogen Normal (Normal) mg/dl Ur Leukocyte Esterase Negative (Negative) /ul Urine RBC 0 SEEN (0-5) /hpf Urine WBC 0 SEEN (0-5) /hpf Ur Squamous Epith Cells 0 SEEN (0-5) /hpf Urine Bacteria 0 SEEN (None Seen) /hpf Urine Mucus 0 SEEN (<or=2+) /hpf - Rhythm Strip Rhythm Strip: Paced Rate: 70 Ectopy: None - EKG Initial EKG Interpretation: No Acute Injury Pattern, Paced - Ventricular - Medical Decision Making After for morphine, patient slept for a little while and when he woke up his pain is most completely gone he feels much better. Labs show significant leukocytosis, stable chronic stage III renal disease, he apparently has one atrophic kidney and although he may not have a true iodine allergy, his power of employment law attorney arrived and states that that is on there so that he never gets IV contrast. He has a large pleural effusion on the right side that appears stable, and since he has no pleuritic discomfort or chest discomfort, more than likely this is unchanged and not indicative of an empyema. He is breathing well and his vital signs are stable with blood pressure in the 120s. I am not able to rule out aortic dissection given the fact that I cannot give him contrast, however with the pain all the way down his back and stable blood pressure, and the fact that he is actually a DNR-CCA according to his power of employment law attorney, that is relatively insignificant at this time anyway since he is technically being treated for a type B dissection. He would not be a candidate for surgical treatment for a type a dissection according to his power of employment law attorney. I was concerned about the appearance of his left lower extremity, it appears to be acute cellulitis. After discussion with his power of employment law attorney, she agrees that this is relatively new and worse than usual. He usually has some swelling but no hot redness. This may be the cause of his leukocytosis. He is given Rocephin and vancomycin for broad-spectrum coverage, no definite history of MRSA but he is in a shelter. There is no sign of an abscess. Given his clinical and hemodynamic stability, I think it is reasonable that he be discharged back to shelter with IV antibiotics. Discussed with Dr. Octaviano Lawler who is amenable to that, we initially ordered Zosyn but he recommends Rocephin instead because of the sodium load and his CHF. Will send him back on Rocephin 1 g every 12 hours. Patient and power of employment law attorney are amenable to that plan. ED Disposition - Plan for ED Patient: Disposition: Home or Assisted Living Chief Complaint: Back Diagnosis: Cellulitis of left lower extremity without foot, Chronic kidney disease, stage III (moderate), Back pain Instructions: ED Infec Skin Cellulitis Prescriptions: Ceftriaxone [Rocephin] 1 gm IV Q12 10 Days #20 bag Referrals: Murali Yusuf MD [Primary Care Provider] - 2 Days
--- NOTE | 2018-04-10 16:47 | ED.DCSUM_ITS ---
History of Present Illness Chief Complaint: Back Informant: Patient Limited by: Dementia Onset: Yesterday Context: - - unknown Timing: Continuous Quality: pain Location: entire back, middle Current Severity: Severe Maximum Severity: Severe Worsened by: nothing - no change w/ movement of any kind. nonexertional. Relieved by: nothing Associated Symptoms: none Narrative: Patient is in assisted living at [facility]. Does have some dementia which limits the history to some degree, such as when asked if he is on a blood thinner he states a little bit. He states the pain started yesterday throughout the entire back but not including his neck and no radiation into any extremity. He does not recall what he was doing. He does walk and states that it does not alter the discomfort at all when he is walking versus resting. He denies any abdominal or chest discomfort. No shortness of breath, the discomfort in his back is nonpleuritic. He denies any fever or cough. No nausea. He states he has a pig valve but does not know which one. He states that his left leg has been red and hot since August last year when the vein was harvested out of it. He states that the vein was taken out and put in the other one. He states he is sure that his hot red leg is not new or changed recently. - Past Medical History (1) Atrial fibrillation Status: Chronic (2) Generalized leg edema Status: Chronic (3) Heart failure with preserved ejection fraction Status: Chronic (4) Hyperlipidemia Status: Chronic (5) Leg mass Status: Chronic (6) PAD (peripheral artery disease) Status: Chronic (7) Pleural effusion Status: Chronic (8) Valvular heart disease Status: Chronic (9) Atherosclerotic heart disease of [place] coronary artery without angina pectoris Status: Chronic (10) Hypertension Status: Chronic (11) Presence of implantable cardioverter-defibrillator (ICD) Status: Chronic (12) Aortic aneurysm of unspecified site, without rupture Status: Chronic (13) GERD (gastroesophageal reflux disease) Status: Chronic (14) COPD (chronic obstructive pulmonary disease) Status: Chronic (15) Chronic kidney disease, stage III (moderate) Status: Chronic (16) Other Alzheimer's disease Status: Chronic Past Medical History - Allergies and Home Meds Allergies/Adverse Reactions: Allergies aspirin Adverse Reaction (Intermediate, Verified 04/10/18 16:23) Unknown iodine Adverse Reaction (Unknown, Verified 04/10/18 16:23) Unknown Patient has one kidney, marine underwriter wanted it listed as allergy Primary Care Physician: Murali Yusuf MD [Primary Care Provider] - Surgical History: - - Patient had bypass surgery on his left leg approximately 1 month ago, 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 Lives: [facility] Smoking Status: Former smoker - Family History Maternal Family History: Family History (Last Reviewed 04/01/18 @ 14:43 by Allison Sow) Mother CAD (coronary artery disease) Father CAD (coronary artery disease) Brother CAD (coronary artery disease) Sister CAD (coronary artery disease) Family History: Reports: No pertinent history Paternal Family History: Family History (Last Reviewed 04/01/18 @ 14:43 by Allison Sow) Mother CAD (coronary artery disease) Father CAD (coronary artery disease) Brother CAD (coronary artery disease) Sister CAD (coronary artery disease) Family History: Reports: No pertinent history Review of Systems All systems negative except as indicated General: Denies: Fever Eyes: Denies: Visual changes - bilaterally ENT: Denies: Bilateral ear pain Cardiovascular: Denies: Chest pain, Palpitations, Heart racing Respiratory: Denies: Dyspnea, Cough Gastrointestinal: Denies: Abdominal pain, Nausea, Vomiting, Diarrhea Genitourinary: Denies: Dysuria, Hematuria, Frequency Musculoskeletal: Reports: Back pain, Swelling, Extremity Pain. Denies: Myalgias , Neck pain Neurological: Denies: Headache, Weakness, Parasthesia, Numbness Physical Exam Vital Signs/Narrative: Vital Signs Temp Pulse Resp BP Pulse Ox 04/10/18 16:24 98.8 F 81 20 H 125/79 H 95 Inital Vital Signs reviewed: Yes General: Well nourished, Well developed Head: Normocephalic, Atraumatic Eyes: Perrl, EOMI ENT: Moist mucous membranes, No rhinorrhea Neck: Supple, Nontender Cardiovascular: Regular rate, Regular rhythm, No murmurs Respiratory: No distress, CTA bilaterally, Chest nontender, Diminished - Diffusely, symmetrically, - - No splinting on deep inspiration Abdomen: Soft, Nontender, Nondistended, Normal bowel sounds. Negative for: Mass , Pulsatile mass Back: Nontender, Normal Inspection, - - No change in pain when actively sitting up. Negative for: CVA tenderness, Spinal tenderness Extremities: Tenderness - Mild throughout hot, erythematous left lower extremity , distal to knee, Edema - 1+ distal left lower extremity Skin: Normal color, No rash, - - Blanching erythema left lower extremity lower leg, no other lesions or bullae or crepitance or lymphangitis Neurological: Alert, Cranial nerves II-XII grossly intact, Normal Strength, Normal Sensation, Disoriented - To time only Psychological: Normal affect Diagnostic/Tx/Re-eval Impressions Chest X-Ray 04/10/18 16:51 IMPRESSION: Cardiopulmonary features described above are likely to reflect CHF in the setting of chronic cardiac disease. Electronically Signed: Jerome Chacko, at 17:11 EDT Tel , Service support , Abdomen/Pelvis CT 04/10/18 17:55 IMPRESSION: Similar appearing moderate volume right effusion right lower lobe atelectasis and/or consolidation. Cardiomegaly defibrillator. Atrophied left kidney 7.7 mm calcification in the renal parenchyma and/or hyperdense cystic structure. Evidence of old granulomatous disease Nonspecific pneumobilia which may be related to reflux or potentially recent procedure. Infection is thought to be less likely but not entirely excluded. Status post right hip arthroplasty. Degenerative changes lower lumbar spine especially L4-L5. Electronically Signed: Zeinab Yo MD at 18:49 EDT Tel , Service support , Chest CT 04/10/18 17:55 IMPRESSION: There is persistent moderate volume right effusion with right lower lobe consolidation recommend consideration for bronchoscopy if appropriate Multiple infectious reactive if not metastatic lymph nodes demonstrated. Cardiomegaly coronary artery disease defibrillator Pneumobilia indeterminate in origin. Degenerative changes of thoracic spine. Electronically Signed: Zeinab Yo MD at 18:52 EDT Tel , Service support , 04/10/18 16:51 Chest 1 View (Portable) [RAD] Stat 04/10/18 17:55 CT Abd [Abdomen/Pelvis without Cont] [CT] Stat Chest without Contrast [CT] Stat Laboratory Results 04/10/18 04/10/18 04/10/18 Range/Units 16:30 16:30 17:40 WBC 18.7 H (4.4-11.0) K/mm3 RBC 4.29 L (4.6-6.2) M/mm3 Hgb 11.7 L (13.0-16.5) g/dl Hct 36.7 L (40-54) % MCV 85.5 (80-94) fL MCH 27.3 (27.0-32.0) pg MCHC 31.9 L (32-36) g/gl RDW 13.6 (11.6-14.6) % RDW Differential 42.3 (35.1-43.9) fl Plt Count 291 (150-450) K/mm3 MPV 9.5 (6.2-12.0) fl Immature Gran % (Auto) 0.200 (0.0-0.9) % Neut % (Auto) 85.9 H (47-70) % Lymph % (Auto) 4.4 L (19-41) % [place] % (Auto) 8.0 (0-10) % Eos % (Auto) 1.3 (0-5) % Baso % (Auto) 0.2 (0-1) % Absolute Neuts (auto) 16.1 H (2.0-7.7) X10^3/uL Absolute Lymphs (auto) 0.83 (0.83-4.51) X10^3/ul Total Counted Not Reportable Sodium 134 L (136-145) mmol/L Potassium 4.3 (3.5-5.1) mmol/L Chloride 93 L (98-107) mmol/L Carbon Dioxide 36.0 H (21.0-32.0) mmol/L Anion Gap 5 (5-15) BUN 77 H (7-18) mg/dL Creatinine 2.53 H (0.70-1.30) mg/dL Estim Creat Clear Calc 24.41 ml/min Est GFR (MDRD) Af Amer 32 L (>60) mL/min Est GFR (MDRD) Non-Af 27 L (>60) mL/min BUN/Creatinine Ratio 30.4 H (10-20) RATIO Glucose 173 H (74-106) mg/dL Calcium 9.7 (8.5-10.1) mg/dL Total Bilirubin 0.50 (0.20-1.00) mg/dL AST 17 (15-37) U/L ALT 17 (16-61) U/L Alkaline Phosphatase 155 H (45-117) U/L Troponin I < 0.015 (<0.045) ng/mL Total Protein 8.6 H (6.4-8.2) g/dL Albumin 3.5 (3.2-5.0) g/dL Globulin 5.1 H (2.2-4.2) g/dL Albumin/Globulin Ratio 0.7 L (0.9-2.4) RATIO Urine Color Yellow (Yellow) Urine Clarity Clear (Clear) Urine pH 7.0 (5.0 - 8.0) Ur Specific [place] 1.005 (1.002-1.030) Urine Protein 30 H (Negative) mg/dl Urine Glucose (UA) Normal (Normal) mg/dl Urine Ketones Negative (Negative) mg/dl Urine Occult Blood Negative (Negative) /ul Urine Nitrite Negative (Negative) Urine Bilirubin Negative (Negative) mg/dL Urine Urobilinogen Normal (Normal) mg/dl Ur Leukocyte Esterase Negative (Negative) /ul Urine RBC 0 SEEN (0-5) /hpf Urine WBC 0 SEEN (0-5) /hpf Ur Squamous Epith Cells 0 SEEN (0-5) /hpf Urine Bacteria 0 SEEN (None Seen) /hpf Urine Mucus 0 SEEN (<or=2+) /hpf - Rhythm Strip Rhythm Strip: Paced Rate: 70 Ectopy: None - EKG Initial EKG Interpretation: No Acute Injury Pattern, Paced - Ventricular - Medical Decision Making After for morphine, patient slept for a little while and when he woke up his pain is most completely gone he feels much better. Labs show significant leukocytosis, stable chronic stage III renal disease, he apparently has one atrophic kidney and although he may not have a true iodine allergy, his power of contract attorney arrived and states that that is on there so that he never gets IV contrast. He has a large pleural effusion on the right side that appears stable , and since he has no pleuritic discomfort or chest discomfort, more than likely this is unchanged and not indicative of an empyema. He is breathing well and his vital signs are stable with blood pressure in the 120s. I am not able to rule out aortic dissection given the fact that I cannot give him contrast, however with the pain all the way down his back and stable blood pressure, and the fact that he is actually a DNR-CCA according to his power of contract attorney, that is relatively insignificant at this time anyway since he is technically being treated for a type B dissection. He would not be a candidate for surgical treatment for a type a dissection according to his power of contract attorney. I was concerned about the appearance of his left lower extremity, it appears to be acute cellulitis. After discussion with his power of contract attorney, she agrees that this is relatively new and worse than usual. He usually has some swelling but no hot redness. This may be the cause of his leukocytosis. He is given Rocephin and vancomycin for broad-spectrum coverage, no definite history of MRSA but he is in a snf. There is no sign of an abscess. Given his clinical and hemodynamic stability, I think it is reasonable that he be discharged back to snf with IV antibiotics. Discussed with Dr. Octaviano Lawler who is amenable to that, we initially ordered Zosyn but he recommends Rocephin instead because of the sodium load and his CHF. Will send him back on Rocephin 1 g every 12 hours. Patient and power of contract attorney are amenable to that plan. ED Disposition - Plan for ED Patient: Disposition: Home or Assisted Living Chief Complaint: Back Diagnosis: Cellulitis of left lower extremity without foot, Chronic kidney disease, stage III (moderate), Back pain Instructions: ED Infec Skin Cellulitis Prescriptions: Ceftriaxone [Rocephin] 1 gm IV Q12 10 Days #20 bag Referrals: Murali Yusuf MD [Primary Care Provider] - 2 Days
--- NOTE | 2018-04-10 16:51 | RAD_ITS ---
STUDY: X-RAY CHEST REASON FOR EXAM: Male, 73 years old. Chest pain TECHNIQUE: Portable chest COMPARISON: 12/14/2017 chest x-ray and CT chest 12/12/2017.. FINDINGS: Right pectoral multi lead AICD device. Median sternotomy with bioprosthetic aortic valve. Moderate layering bilateral pleural effusions, prominent bibasilar atelectasis. No significant vascular congestion. Minimal hazy perihilar infiltrates. Pulmonary features favoring CHF. Stable mild cardiomegaly. Minimally ectatic aorta. Normal jake and pleural margins. No pneumothorax. No acute osseous or upper abdominal process. RAD/Chest 1 View (Portable) IMPRESSION: Cardiopulmonary features described above are likely to reflect CHF in the setting of chronic cardiac disease. Electronically Signed: Jerome Chacko, at 17:11 EDT Tel , Service support ,
[2018-04-10] MEDS: Morphine 4 MG/ML Syringe IV (16:59)
[2018-04-10] MEDS: 0.9% Normal Saline 1,000 ML 150 ML IV (16:59)
[2018-04-10 17:11] LABS: Absolute Lymphocyte Count 0.83 X10^3/ul (0.83-4.51); Absolute Neutrophil Count 16.1 X10^3/uL (2.0-7.7); Basophil# 0.03 X10^3/uL; Basophil% 0.2 % (0-1); Eosinophil# 0.24 X10^3/uL; Eosinophils% 1.3 % (0-5); Hematocrit 36.7 % (40-54); Hemoglobin 11.7 g/dl (13.0-16.5); Lymphocyte # 0.83 X10^3/ul (4.0); Lymphocyte % 4.4 % (19-41); Mean Corp Hgb Conc 31.9 g/gl (32-36); Mean Corpuscular Hgb 27.3 pg (27.0-32.0); Mean Corpuscular Volume 85.5 fL (80-94); Mean Platelet Vol. 9.5 fl (6.2-12.0); Neutrophil # 16.07 X10^3/uL (2.7-7.7); Neutrophil % 85.9 % (47-70); POSITIVE COUNT NO; POSITIVE DIFFERENTIAL NO; POSITIVE MORPHOLOGY NO; Platelet Count 291 K/mm3 (150-450); RBC Distribution Width CV 13.6 % (11.6-14.6); RBC Distribution Width SD 42.3 fl (35.1-43.9); Red Blood Count 4.29 M/mm3 (4.6-6.2); White Blood Count 18.7 K/mm3 (4.4-11.0)
[2018-04-10 17:12] LABS: BUN 77 mg/dL (7-18); Creatinine, Serum 2.53 mg/dL (0.70-1.30); Glucose 173 mg/dL (74-106)
[2018-04-10 17:13] LABS: ALB/GLOB Ratio 0.7 RATIO (0.9-2.4); AST(SGOT) 17 U/L (15-37); Alanine Aminotransfer ALT/SGPT 17 U/L (16-61); Albumin, Serum 3.5 g/dL (3.2-5.0); Alkaline Phosphatase 155 U/L (45-117); Anion Gap 5 (5-15); BUN/Creat Ratio 30.4 RATIO (10-20); Calcium,Total 9.7 mg/dL (8.5-10.1); Chloride 93 mmol/L (98-107); EST Glomerular Filtration Rate 27 mL/min (>60); Est Glom Filt Rate - Afr Amer 32 mL/min (>60); Estimated Creatinine Clearance 24.41 ml/min; Globulin 5.1 g/dL (2.2-4.2); Potassium 4.3 mmol/L (3.5-5.1); Protein, Total 8.6 g/dL (6.4-8.2); Sodium Level 134 mmol/L (136-145)
[2018-04-10 17:45] LABS: Bacteria 0 SEEN /hpf (None Seen); Mucous, Urine 0 SEEN /hpf (<or=2+); Red Blood Cells-Urine 0 SEEN /hpf (0-5); Squamous Epithelial Cells - UA 0 SEEN /hpf (0-5); White Blood Cells 0 SEEN /hpf (0-5)
[2018-04-10 17:46] LABS: Color, Urine Yellow (Yellow); Glucose, Dipstick Normal (Normal); Ketone-Dipstick Negative (Negative); Leukocyte Esterase-Dipstick Negative /ul (Negative); Nitrite-Dipstick Negative (Negative); Occult Blood-Urine Negative /ul (Negative); Protein-Dipstick 30 mg/dl (Negative); Specific Gravity, Urine 1.005 (1.002-1.030); Urine Bilirubin Dipstick Negative (Negative); Urine Clarity Clear (Clear); Urine Urobilinogen Normal (Normal)
--- NOTE | 2018-04-10 17:55 | CT_ITS ---
STUDY: CT ABDOMEN AND PELVIS WITHOUT CONTRAST REASON FOR EXAM: Male, 73 years old. Neck pain denies injury history of hypertension diabetes renal disease, history of cholecystectomy pacemaker RADIATION DOSAGE (If Supplied By Facility): CTDIvol = ( 27.18 ) mGy, DLP = ( 1381.80 ) mGycm TECHNIQUE: Transaxial images were obtained from the dome of the diaphragm to the symphysis pubis without oral contrast, and without intravenous contrast. Sagittal and coronal images were reconstructed. Individualized dose optimization techniques were used for this CT. COMPARISON: December 12, 2017 CT scan chest. FINDINGS: There is a small to moderate volume right pleural effusion with right lower lobe consolidation. There is left-sided calcific pleural plaquing and a small left effusion. There is mild to moderate cardiac enlargement. There is a pacer defibrillator overlying the heart. There is a focus of pneumobilia within the liver seen on image #18. There is also pneumobilia in the left hepatic lobe. There is a small amount of gas within the common duct. There are surgical clips in the gallbladder fossa consistent with a prior cholecystectomy. There are multiple benign calcified granulomata of the spleen. Normal pancreas. Normal bilateral adrenal glands. Is a nonspecific focal round hyperdensity within the kidney measuring 7.7 mm. The left kidney is small atrophic and likely nonfunctioning. Normal visualized stomach. Normal small intestine. There few scattered diverticula present. The appendix is definitely visualized and appears normal. This is in contrast to the given history of appendectomy. There is diffuse atherosclerotic calcification of the abdominal aorta with elongation and tortuosity, but without a demonstrated aneurysm. Normal inferior vena cava. There are multiple small subcentimeter paratracheal lymph nodes. There is dense calcification the take off of the right renal artery. Normal urinary bladder. There are prostatic calcifications. There is dense calcification of the vessels of the abdomen and pelvis. There are diffuse degenerative changes of the visualized lumbar spine. It is a right hip arthroplasty. There is slight anterolisthesis at L4-L5 broad disc protrusion severe neural foraminal narrowing severe central stenosis. At L5-S1 there is a broad disc bulge mild/moderate neural foraminal narrowing without central stenosis. CT/Abdomen/Pelvis without Cont IMPRESSION: Similar appearing moderate volume right effusion right lower lobe atelectasis and/or consolidation. Cardiomegaly defibrillator. Atrophied left kidney 7.7 mm calcification in the renal parenchyma and/or hyperdense cystic structure. Evidence of old granulomatous disease Nonspecific pneumobilia which may be related to reflux or potentially recent procedure. Infection is thought to be less likely but not entirely excluded. Status post right hip arthroplasty. Degenerative changes lower lumbar spine especially L4-L5. Electronically Signed: Zeinab Yo MD at 18:49 EDT Tel , Service support ,
--- NOTE | 2018-04-10 17:55 | CT_ITS ---
STUDY: CT CHEST WITHOUT CONTRAST REASON FOR EXAM: Male, 73 years old. Back pain RADIATION DOSAGE (If Supplied By Facility): CTDIvol = ( 27.41 ) mGy, DLP = ( 1047.27 ) mGycm TECHNIQUE: Transaxial imaging was performed without the administration of intravenous contrast material. Multiplanar coronal and sagittal images were reformatted. Individualized dose optimization techniques were used for this CT. COMPARISON: CT chest December 12, 2017 FINDINGS: Again noted is a moderate volume right effusion was present over lobe consolidation. There is left-sided pleural plaquing and mild left pleural thickening. There is no demonstrated pleural abnormality. There is moderate cardiomegaly. There is calcification of the coronary arteries. There is a pacer defibrillator demonstrated. There is a precarinal lymph node measuring 1.7 cm similar to prior study. There are multiple mediastinal lymph nodes measuring 1.6 to 1 cm. There is a subcarinal lymph node measuring 2.4 cm also similar to the prior study. Normal hilar regions. Normal unenhanced pulmonary arteries. There is atherosclerotic tortuosity of the aortic arch and descending thoracic aorta. There are multi-level degenerative changes of the thoracic spine. There is visualized pneumobilia with air was not seen on prior study. CT/Chest without Contrast IMPRESSION: There is persistent moderate volume right effusion with right lower lobe consolidation recommend consideration for bronchoscopy if appropriate Multiple infectious reactive if not metastatic lymph nodes demonstrated. Cardiomegaly coronary artery disease defibrillator Pneumobilia indeterminate in origin. Degenerative changes of thoracic spine. Electronically Signed: Zeinab Yo MD at 18:52 EDT Tel , Service support ,
[2018-04-10 18:35] VITALS: BP 98/55; PULSE 70; RESP 26; O2SAT 94
[2018-04-10 20:30] VITALS: BP 117/61; PULSE 70; RESP 23; O2SAT 96
[2018-04-10] MEDS: Ceftriaxone 1 GM/50 ML BAG IV (21:17)
[2018-04-10 22:07] VITALS: BP 119/74; PULSE 70; RESP 22; O2SAT 98
[2018-04-10 23:38] VITALS: BP 111/61; PULSE 70; RESP 20; O2SAT 97
[2018-04-10 23:43] VITALS: BP 111/61; PULSE 70; RESP 21; O2SAT 97
--- NOTE | 2018-04-11 00:09 | ED.RN ---
report given to Renny at the long term.
== END 2018-04-11 00:09 | disposition skilled nursing facility (03) ==
PROVIDERS: Emergency Provider Emergency Medicine; Family Provider Family Medicine; PCP Family Medicine
DX: M54.9 Dorsalgia, unspecified (principal); L03.116 Cellulitis of left lower limb; I13.0 Hypertensive heart and chronic kidney disease with heart failure and stage 1 through stage 4 chronic kidney disease, or unspecified chronic kidney disease; E11.22 Type 2 diabetes mellitus with diabetic chronic kidney disease; N18.3 Chronic kidney disease, stage 3 (moderate); I50.32 Chronic diastolic (congestive) heart failure; I48.2 Chronic atrial fibrillation; E87.5 Hyperkalemia; I25.10 Atherosclerotic heart disease of native coronary artery without angina pectoris; J44.9 Chronic obstructive pulmonary disease, unspecified; K21.9 Gastro-esophageal reflux disease without esophagitis; G30.9 Alzheimer's disease, unspecified; F02.80 Dementia in other diseases classified elsewhere, unspecified severity, without behavioral disturbance, psychotic disturbance, mood disturbance, and anxiety; E78.5 Hyperlipidemia, unspecified; I73.9 Peripheral vascular disease, unspecified; Z79.84 Long term (current) use of oral hypoglycemic drugs; Z79.02 Long term (current) use of antithrombotics/antiplatelets; Z79.899 Other long term (current) drug therapy; Z87.891 Personal history of nicotine dependence
CPT/HCPCS: 36415; 71045; 71250; 74176; 80053; 81001; 84484; 85025; 87040; 93005; 96361; 96365; 96366; 96367; 96375; 99285; J7030; J7050; A4216

== ENCOUNTER → 2018-04-23 08:54 | Outpatient (CLI) | payer MEDICARE, SELFPAY ==
--- NOTE | 2018-04-23 11:29 | PFTCOMP ---
COMPLETE PULMONARY FUNCTION TEST INTERPRETATION Brief HPI: Patient is a 73 year old male, currently under the care of Dr. Thakur, who presents to [facility] for complete pulmonary function tests secondary to diagnosis of dyspnea. Respiratory therapist reports good effort, but had significant difficulty with the testing and was unable to obtain reproducible results. Interpretation: Forced expiration spirometry shows a very severe large airways obstructive ventilatory defect with an FEV1 of 34% predicted. There is no significant bronchodilator response by ATS criteria. Spirograms are of poor quality and plateau slowly, indicating slowly emptying areas of the lungs. The respiratory flow volume loop shows decreased expiratory flow rates at all lung volumes consistent with airway obstruction. Lung volumes by body plethysmography show an elevated total lung capacity at 7.69 L, 129% predicted. FRC and RV are elevated out of proportion. Lung volume measurements are consistent with hyperinflation and air-trapping. Diffusion capacity by carbon monoxide was unable to be obtained. The airway resistance is normal. No previous pulmonary function tests were available for review. Impression: Irreversible severe large airways obstructive ventilatory defect resulting in air trapping with hyperinflation. Unable to obtain DLCO.
== END ==
PROVIDERS: Family Provider Family Medicine; PCP Family Medicine; Visit Provider Internal Medicine Critical Care Medicine
DX: J96.11 Chronic respiratory failure with hypoxia (principal); R06.02 Shortness of breath
CPT/HCPCS: 94060; 94726

== ENCOUNTER → 2018-05-12 09:23 | Outpatient (CLI) | payer MEDICAID, SELFPAY ==
--- NOTE | 2018-05-12 | FLU_PTH ---
PATIENT: SOCORRO MATIAS LOC: [facility]#:[id number] AGE/SX: 80/M ROOM: RE05/12/[address]: FARZANEH Krueger : 1945 BED: DIS: SPEC #: [id number] RECD: 05/12/18 13:00 STATUS: SAVANNA ANGELICA #: [id number] NEEL: 05/12/18 00:[address]: Marlene Cheek NP DEPT: CYTOLOGY RECD BY: Waqas Preciado ENTERED: 05/12/18 13:35 SP TYPE: Fluid OTHR DR: Dr. Murali Yusuf MD Tissues: THORACIC FLUID Procedures: Pap Stain (control) Special Stain Group II Surgery Specimen Level IV Cell Block Cytospin Fluid HEADER OPERATION: Ultrasound-guided right thoracentesis PRE-OP DIAGNOSIS: Pleural effusion TISSUE SUBMITTED: Thoracentesis fluid for cytology DIAGNOSIS CYTOLOGY Thoracentesis fluid for cytology (cytospin and cell block): Negative for malignancy. Bloody specimen. SJ:misha 05/13/18 CYTOLOGY STUDY Slides are reviewed. CYTOLOGY GROSS Received is 64 ml of dark red cloudy fluid labeled with the patient's name and and designated per the requisition as thoracentesis. Submitted for cytology preparation including cell block. / 05/12/18 TC:5 CPT: 07590, 14060
--- NOTE | 2018-05-12 09:40 | US_ITS ---
PROCEDURE: ULTRASOUND GUIDED THORACENTESIS. DATE: May 12, 2018. INDICATION: Male, 73 years old. Right pleural effusion PHYSICIAN: Vadim Ortiz M.D. PROCEDURE: The risks, benefits, and alternatives to the procedure were explained to the patient. The specific risks of bleeding, infection, and pneumothorax requiring chest tube insertion were discussed and accepted. Written informed consent was obtained. Ultrasonographic evaluation of the right lower pleural space was carried out. An adequate pocket was identified. The patient was placed in the sitting, upright position. The overlying skin was prepped and draped in sterile fashion. 1% lidocaine was administered subcutaneously for local anesthesia. Under ultrasound guidance, a 5 Arabic thoracentesis needle/catheter system was advanced into the right posterior lower pleural fluid collection. Approximately 120 mL of bloody fluid was drained. The catheter was removed, and a sterile dressing was applied. A specimen was collected and sent to the laboratory for analysis, as requested by the referring clinician. The patient tolerated the procedure well. A chest x-ray was ordered. US/Thoracentesis W US IMPRESSION: Ultrasound-guided right thoracentesis. Electronically Signed: Vadim rOtiz MD at 12:53 EDT Tel [phone], Service support ,
[2018-05-12 09:48] LABS: International Normalized Ratio 1.2; Prothrombin Time (Protime)PT. 15.2 SECONDS (11.7-14.9)
[2018-05-12 09:49] LABS: Partial Thromboplast Time 28.9 Seconds (24.1-36.2)
[2018-05-12 12:15] VITALS: BP 115/70; PULSE 73; RESP 16; O2SAT 96
[2018-05-12 12:25] VITALS: BP 101/62; PULSE 70; RESP 16; O2SAT 94
--- NOTE | 2018-05-12 12:26 | RAD_ITS ---
STUDY: X-RAY CHEST REASON FOR EXAM: Male, 73 years old. The patient is status post right thoracentesis. TECHNIQUE: AP inspiration and expiration views. COMPARISON: Comparison is made with prior study dated April 10, 2018. FINDINGS: The patient is status post right thoracentesis. There is no evidence of pneumothorax. Residual blunting of the right costophrenic angle with mild right basilar increased markings. Stable left pleural-parenchymal changes. RAD/Chest Insp/Exp 2 View IMPRESSION: Status post right thoracentesis. There is no evidence of pneumothorax. Electronically Signed: Vadim Ortiz MD at 13:06 EDT Tel [phone], Service support ,
[2018-05-12 12:35] VITALS: BP 108/60; PULSE 70; RESP 18; O2SAT 97
[2018-05-12 12:50] VITALS: BP 127/64; PULSE 72; RESP 16; O2SAT 94
[2018-05-12 13:57] LABS: LDH,Body Fluid 299 Units/l (Not Establ.); Protein, Body Fluid 5.6 g/dL (Not Establ.)
== END ==
PROVIDERS: Family Provider Family Medicine; PCP Family Medicine; Visit Provider Nurse Practitioner Acute Care
DX: J90 Pleural effusion, not elsewhere classified (principal)
CPT/HCPCS: 32555; 36415; 71046; 83615; 84157; 85610; 85730; 87070; 87075; 87205; 88108; 88305; 88313

== ENCOUNTER 2018-06-05 11:55 | Day surgery (SDC) | payer MEDICARE, SELFPAY ==
[2018-06-05] VITALS (8 sets, daily range): BP systolic 97–127; BP diastolic 62–85; PULSE 70; RESP 18–22; TEMP 35.9–36.8; O2SAT 91–99; BMI 31.3
--- NOTE | 2018-06-05 | FLU_PTH ---
PATIENT: SOCORRO MATIAS LOC: [facility] U#:[id number] AGE/SX: 73/M ROOM: RE06/05/[address]: Dr. Earnest Thakur DO : 1945 BED: DIS: 06/05/2018 SPEC #: [id number] RECD: 06/08/18 08:36 STATUS: SAVANNA REPolly #: [id number] NEEL: 06/05/18 00:[address]: Earnest Thakur DEPT: CYTOLOGY RECD BY: Levar Herrera ENTERED: 06/08/18 08:38 SP TYPE: Fluid OTHR DR: Dr. Murali Yusuf MD Tissues: A - Lung, NOS B - Lung, NOS C - Lung, NOS D - Lung, NOS E - Lung, NOS F - Lung, NOS G - Lung, NOS H - Lung, NOS I - Lung, NOS J - Lung, NOS Procedures: Special Stain Group II Surgery Specimen Level IV Cytospin Fluid HEADER OPERATION: Bronchoscopy (MAC) PRE-OP DIAGNOSIS: Mediastinal LAD TISSUE SUBMITTED: A-C - Site 7 EBUS, FNA, D & E - Site 10L EBUS, FNA, F & G - Site 4L EBUS, FNA, H - Site 7, I - Site 4L, J - Site 10L DIAGNOSIS CYTOLOGY A. EBUS, FNA, aspiration #1, site 7 (smears): Negative for malignant cells. Adequate for evaluation. Lymphocytes and respiratory epithelial cells noted. B. EBUS, FNA, aspiration #2, site 7 (smears): Mostly blood. Negative for malignant cells. Rare respiratory epithelial cells and lymphocytes noted. Nondiagnostic specimen. C. EBUS, FNA, aspiration #3, site 7 (smears): Mostly blood. Negative for malignant cells. Rare respiratory epithelial cells and lymphocytes noted. Nondiagnostic specimen. D. EBUS, FNA, aspiration #4, site 10L (smears): Nondiagnostic specimen. The specimen entirely consists of blood only. E. EBUS, FNA, aspiration #5, site 10L (smears): Nondiagnostic specimen. The specimen entirely consists of blood only. F. EBUS, FNA, aspiration #6, site 4L (smears): Mostly blood. Negative for malignant cells. Rare respiratory epithelial cells and lymphocytes noted. Nondiagnostic specimen. G. EBUS, FNA, aspiration #7, site 4L (smears): Nondiagnostic specimen. Rare respiratory epithelial cells and lymphocytes are noted. Negative for malignant cells. H. EBUS, site 7 fluid (cytospin and cell block): Paucicellular specimen. Rare respiratory epithelial cells and lymphocytes are noted. Negative for malignant cells. Flow cytometry study from [facility] shows no B-delon clone detected. Few T cells are present. The complete report is viewable in patient's EMR. I. EBUS, site 4L, left hilar (cytospin and cell block): Paucicellular specimen. Rare respiratory epithelial cells noted. Negative for malignant cells. J. EBUS, site 10L fluid, left paratracheal (cytospin and cell block): Paucicellular specimen. Rare benign lymphocytes and respiratory epithelial cells noted. Negative for malignant cells. SJ:misha 06/09/18 COMMENT The specimen is evaluated at the time of procedure by Dr. Clark. Immediate Evaluation: A. EBUS, FNA, aspiration #1, site 7: Negative for malignant cells. Adequate for evaluation. Lymphocytes and respiratory epithelial cells noted. Reported at 1:21 p.m. B. EBUS, FNA, aspiration #2, site 7: Epithelial cells noted. Reported at 1:25 p.m. C. EBUS, FNA, aspiration #3, site 7: A few lymphocytes and respiratory epithelial cells noted. Negative for malignant cells. Mostly blood, rare lymphocytes are noted. Reported at 1:28 p.m. D. EBUS, FNA, aspiration #4, site 10L: Nondiagnostic. Paucicellular, small amount of blood noted. Reported at 1:36 p.m. E. EBUS, FNA, aspiration #5, site 10L: Nondiagnostic. Blood and rare respiratory epithelial cells. Reported at 1:44 p.m. F. EBUS, FNA, aspiration #6, site 4L: Mostly blood. Reported at 1:54 p.m. G. EBUS, FNA, aspiration #7, site 4L: Blood, rare respiratory epithelial cells and macrophages. Reported at 1:58 p.m. CYTOLOGY STUDY Slides are reviewed. CYTOLOGY GROSS A - Received labeled with the patient's name, and designated EBUS, FNA, aspiration #1, site 7. The specimen consists of two smears submitted for immediate cytologic evaluation (wet read). B - Received labeled with the patient's name, and designated EBUS, FNA, aspiration #2, site 7. The specimen consists of two smears submitted for immediate cytologic evaluation (wet read). C - Received labeled with the patient's name, and designated EBUS, FNA, aspiration #3, site 7. The specimen consists of two smears submitted for immediate cytologic evaluation (wet read). D - Received labeled with the patient's name, and designated EBUS, FNA, aspiration #4, site 10L. The specimen consists of two smears submitted for immediate cytologic evaluation (wet read). E - Received labeled with the patient's name, and designated EBUS, FNA, aspiration #5, site 10L. The specimen consists of two smears submitted for immediate cytologic evaluation (wet read). F - Received labeled with the patient's name, and designated EBUS, FNA, aspiration #6, site 4L. The specimen consists of two smears submitted for immediate cytologic evaluation (wet read). G - Received labeled with the patient's name, and designated EBUS, FNA, aspiration #7, site 4L. The specimen consists of two smears submitted for immediate cytologic evaluation (wet read). H - Received in RPMI and labeled with the patient's name, and designated EBUS, site 7, subcarina. The specimen is submitted for cytologic preparation including cell block. Half of the submitted fluid is submitted for flow cytometry study. I - Received in RPMI and labeled with the patient's name, and designated EBUS, site 4L, left hilar. The specimen is submitted for cytologic preparation including cell block. J - Received in RPMI and labeled with the patient's name, and designated EBUS, site 10L, left paratracheal. The specimen is submitted for cytologic preparation including cell block. / SJ:rg 06/05/18 TC:5 CPT: 74147 x3, 77962 x3, 83824 x3, 31708 x4
[2018-06-05 12:25] LABS: Prothrombin Time Fingerstick 13.5 SEC (11.9-14.4)
[2018-06-05 12:31] LABS: Bedside Glucose 141 mg/dL (70-110)
--- NOTE | 2018-06-05 14:27 | OP.ENDO_ITS ---
Patient Name: Carroll Rojo Procedure Date: 06/05/2018 12:33 PM Date of : 1945 Age: 73 Procedure: Bronchoscopy Indications: Adenopathy, Bilateral hilar lymphadenopathy, Mediastinal adenopathy Providers: Earnest Thakur MD, Joey Woody MD Medicines: General Anesthesia, See the Anesthesia note for documentation of the administered medications Complications: No immediate complications Procedure: Pre-Anesthesia Assessment: - A History and Physical has been performed. The patient's medications, allergies and sensitivities have been reviewed. - The risks and benefits of the procedure and the sedation options and risks were discussed with the patient's daughter. All questions were answered and informed consent was obtained. - Patient identification and proposed procedure were verified prior to the procedure by the physician and the nurse. The procedure was verified in the procedure room. After I obtained informed consent, the scope was passed under direct vision. Throughout the procedure, the patient's blood pressure, pulse, and oxygen saturations were monitored continuously. The ultrasound bronchoscope was introduced through the mouth, via laryngeal mask airway and advanced to the tracheobronchial tree. The procedure was accomplished without difficulty. The patient tolerated the procedure well. Findings: The laryngeal mask airway is in good position. The vocal cords appear normal. The subglottic space is normal. The trachea is of normal caliber. The claudia is sharp. The tracheobronchial tree was examined to at least the first subsegmental level. Bronchial mucosa and anatomy are normal; there are no endobronchial lesions, and no secretions. An endobronchial ultrasound endoscope was utilized in order to assist with guiding the biopsy needle in the left paratracheal (AP window) area, in the subcarinal area and in the left hilum. Transbronchial needle aspirations of a lesion were performed in the subcarinal area using an Olympus EBUS-TBNA 19 gauge needle and sent for routine cytology and flow cytometry. The procedure was guided by ultrasound. Three samples were obtained. Transbronchial needle aspirations of a lesion were performed in the left hilum using an Olympus EBUS-TBNA 19 gauge needle and sent for routine cytology. The procedure was guided by ultrasound. Two samples were obtained. Transbronchial needle aspirations of a lesion were performed in the left paratracheal (AP window) area using an Olympus EBUS-TBNA 19 gauge needle and sent for routine cytology. The procedure was guided by ultrasound. Two samples were obtained. Impression: - Adenopathy - Bilateral hilar lymphadenopathy - Mediastinal adenopathy - The airway examination was normal. - Endobronchial ultrasound was performed. - A transbronchial needle aspiration was performed. - A transbronchial needle aspiration was performed. - A transbronchial needle aspiration was performed. Recommendation: - Await cytology results. Procedure Code(s): --- Professional --- 38814, Bronchoscopy, rigid or flexible, including fluoroscopic guidance, when performed; with transbronchial needle aspiration biopsy(s), trachea, main stem and/or lobar bronchus(i) 43133, Bronchoscopy, rigid or flexible, including fluoroscopic guidance, when performed; with transendoscopic endobronchial ultrasound (EBUS) during bronchoscopic diagnostic or therapeutic intervention(s) for peripheral lesion(s) (List separately in addition to code for primary procedure[s]) Diagnosis Code(s): --- Professional --- R59.1, Generalized enlarged lymph nodes R59.0, Localized enlarged lymph nodes CPT copyright 2017 [employer]. All rights reserved. The codes documented in this report are preliminary and upon hardwood finisher review may be revised to meet current compliance requirements. DO Earnest Redd MD 06/05/2018 2:27:23 PM This report has been signed electronically. Joey Woody MD Number of Addenda: 0 Note Initiated On: 06/05/2018 12:33 PM
[2018-06-05 15:00] LABS: Bedside Glucose 131 mg/dL (70-110)
--- NOTE | 2018-06-06 07:08 | PCM.HP.STD ---
History of Present Illness Date of Admission: 06/05/18 Chief Complaint: Mediastinal lymphadenopathy The patient is a 73-year-old male whom I initially evaluated in November when he was admitted to the hospital with shortness of breath and lower extremity edema. The patient was treated empirically at that time with antibiotics for presumptive pneumonia and underwent volume optimization with IV diuretics. He has a rather extensive medical history including coronary artery disease for which she is status post CABG, aortic valve replacement, atrial fibrillation and has an ICD in place. The patient reports that he was previously seen by a phlebotomist lab assistant in [place] who had prescribed Symbicort to him. However, the patient is not aware of ever having been diagnosed with COPD or asthma. He does report previous cigar smoking but has been abstinent from tobacco completely for 50 years. 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 chest from the patient's hospitalization in November revealed a moderate to large right pleural effusion with atelectasis and/or consolidation along with mild central vascular congestion and left pleural thickening. A surface echocardiogram also completed at that time revealed normal LV size with mild concentric LVH and an ejection fraction of 50%. Pulmonary artery systolic pressure was estimated to be 52 mmHg. 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 A 6-minute walk test was also completed at that time and revealed the need for 3 L/min of supplemental oxygen with exertion. The patient was then evaluated in the emergency department at the beginning of April for back pain. A repeat CT chest was obtained and revealed a persistent moderate right-sided pleural effusion along with mediastinal lymphadenopathy. The patient followed up with our nurse practitioner and was referred to undergo an ultrasound-guided thoracentesis at the beginning of May. Cytology was negative. Cultures were also negative. The effusion itself was likely exudative. However, serum LDH and total protein were never sent. Due to the patient's extensive mediastinal adenopathy, he was referred to undergo mediastinal lymph node sampling via EBUS. Past Medical History Past Medical History (Chronic Problems): Chronic Problems (Last Reviewed 04/30/18 @ 11:08 by FARZANEH Krueger) Aortic aneurysm of unspecified site, without rupture (Chronic) GERD (gastroesophageal reflux disease) (Chronic) COPD (chronic obstructive pulmonary disease) (Chronic) Chronic kidney disease, stage III (moderate) (Chronic) Other Alzheimer's disease (Chronic) Leg mass (Chronic) Pleural effusion (Chronic) Heart failure with preserved ejection fraction (Chronic) Generalized leg edema (Chronic) Atrial fibrillation (Chronic) Presence of implantable cardioverter-defibrillator (ICD) (Chronic) Valvular heart disease (Chronic) Atherosclerotic heart disease of [place] coronary artery without angina pectoris (Chronic) Hyperlipidemia (Chronic) Hypertension (Chronic) PAD (peripheral artery disease) (Chronic) Medical History: Medical History (Last Reviewed 04/30/18 @ 11:08 by Marlene Cheek NP-C) Atrial fibrillation (Chronic) I48.91 Valvular heart disease (Chronic) I38 Atherosclerotic heart disease of [place] coronary artery without angina pectoris (Chronic) I25.10 Hyperlipidemia (Chronic) E78.5 Hypertension (Chronic) I10 PAD (peripheral artery disease) (Chronic) I73.9 Peripheral vascular disease (Acute) I73.9 Alzheimer's dementia G30.9, F02.80 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.911A Partial foot and digits Anemia D64.9 Anxiety F41.9 COPD (chronic obstructive pulmonary disease) J44.9 Chronic kidney disease N18.9 GERD (gastroesophageal reflux disease) K21.9 Hypothyroidism E03.9 Type 2 diabetes mellitus E11.9 Allergies aspirin Adverse Reaction (Intermediate, Verified 06/02/18 08:18) Unknown iodine Adverse Reaction (Unknown, Verified 06/02/18 08:18) Unknown Patient has one kidney, fundraising consultant wanted it listed as allergy Home Medications: Ambulatory Orders Medication Instructions Recorded acetaminophen 325 mg capsule 650 mg PO Q4H PRN 10/01/17 acetaminophen 650 mg rectal 650 mg RC Q4H PRN supp 10/01/17 suppository aluminum-magnesium hydroxide 225 30 ml PO Q4H PRN 10/01/17 mg-200 mg/5 mL oral suspension ascorbic acid (vitamin C) 250 mg 250 mg PO DAILY 10/01/17 tablet bisacodyl 10 mg rectal suppository 10 mg RC DAILY PRN PRN 10/01/17 carvedilol 25 mg tablet 25 mg PO BID 10/01/17 clopidogrel 75 mg tablet 75 mg PO DAILY 10/01/17 ferrous sulfate 325 mg (65 mg 325 mg PO TID tab 10/01/17 iron) tablet glucagon (human recombinant) 1 mg 1 mg IM ONCE 10/01/17 injection kit ipratropium-albuterol 0.5 mg-3 3 ml INHALATION Q6H PRN ml 10/01/17 mg(2.5 mg base)/3 mL nebulization soln magnesium hydroxide 400 mg/5 mL 30 ml PO ONCE 10/01/17 oral suspension multivitamin tablet 1 tab PO DAILY 10/01/17 pantoprazole 40 mg tablet,delayed 40 mg PO DAILY 10/01/17 release sennosides 8.6 mg tablet 8.6 mg PO BID 10/01/17 tamsulosin 0.4 mg capsule 0.4 mg PO QHS 10/01/17 vitamin E (dl, acetate) 400 unit 400 unit PO DAILY 10/01/17 capsule linagliptin 5 mg tablet 5 mg PO DAILY 10/02/17 Amlodipine [Norvasc] 5 mg PO DAILY 04/10/18 Argin/Glut/Cahmb/Collag/Mv-Min 1 each PO BID 04/10/18 [Wagner Packet] Atorvastatin Calcium 20 mg PO QHS 04/10/18 Buspirone HCl 5 mg PO BID 04/10/18 Furosemide [Lasix] 40 mg PO BID 04/10/18 Ipratropium/Albuterol Sulfate 3 ml INHALATION 4X/DAY 04/10/18 [Duoneb] Levothyroxine Sodium [Synthroid] 100 mcg PO DAILY 04/10/18 Memantine Hydrochloride [Namenda] 5 mg PO BID 04/10/18 Metolazone [Zaroxolyn] 2.5 mg PO DAILY 04/10/18 Oxycodone HCl/Acetaminophen 1 tab PO BID 04/10/18 [Percocet 5/325] Potassium Chloride [Klor-Con M20] 20 meq PO BID 04/10/18 Propylene Glycol/Peg 400 [Systane 1 drop EACH EYE TID 04/10/18 0.3-0.4% Eye Drops] traZODone [Desyrel] 25 mg PO QHS 04/10/18 Zinc Sulfate (50mg elemental) 220 mg PO QHS 06/02/18 [Zinc Sulfate] Surgical History: Surgical History (Last Reviewed 04/30/18 @ 11:08 by FARZANEH Krueger) Presence of implantable cardioverter-defibrillator (ICD) (Chronic) Z95.810 H/O aortic valve replacement Z95.2 History of cholecystectomy Z98.890, Z90.49 History of hip replacement, total Z96.649 Rt History of knee replacement, total Z96.659 bilateral History of nephrectomy Z98.890, Z90.5 Lt H/O prosthetic aortic valve replacement (Inactive) Z95.2 Surgical History: - - Patient had bypass surgery on his left leg approximately 1 month ago, 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 Smoking Status: Former smoker - *Family History Maternal Family History: Family History (Last Reviewed 04/30/18 @ 11:08 by FARZANEH Krueger) Mother CAD (coronary artery disease) Father CAD (coronary artery disease) Brother CAD (coronary artery disease) Sister CAD (coronary artery disease) History Items: No pertinent history Paternal Family History: Family History (Last Reviewed 04/30/18 @ 11:08 by FARZANEH Krueger) Mother CAD (coronary artery disease) Father CAD (coronary artery disease) Brother CAD (coronary artery disease) Sister CAD (coronary artery disease) History Items: No pertinent history Review of Systems Constitutional: Denies: Anorexia, Chills, Fever Eyes: Denies: Blurred vision, Double vision HEENT: Denies: Head Aches, Sinus Congestion, Sinus Drainage Cardiovascular: Denies: Chest Pain, Palpitations Respiratory: Reports: Shortness of Breath Gastrointestinal: Denies: Abdominal Pain, Nausea, Vomiting Genitourinary: Denies: Dysuria Musculoskeletal: Reports: Back Pain Skin: Denies: Rash, Wounds Neurological: Denies: Numbness, Tingling, Focal weakness Psychiatric: Denies: Anxiety, Depression, Homicidal Ideations, Suicidal Ideations Hematologic/ Lymphatic: Denies: Easy Bruising, Easy Bleeding VTE Information - Inpt Only VTE Present on Admission: No VTE Mechan Device Prophylaxis: None VTE Pharm Prophylaxis ordered?: No Reason prophylaxis not ordered:: Treatment Not Indicated Objective: The patient's most recent lab work, culture data and imaging studies have all been personally reviewed. - Physical Exam General: Alert, Cooperative, No apparent distress, - - The patient's daughter is present at the bedside. HEENT: Atraumatic, PERRLA, Normocephalic Oral: No Gingival or Mucosal Lesions/ Ulcerations Neck: Supple, No Nodes, Trachea Midline Lungs: No rhonchi, No wheeze, No rales, Diminished Cardiovascular: Regular rate, Regular Rhythm, Normal S1, Normal S2, Murmur Abdomen: Bowel Sounds Present, Soft, Non Tender Extremities: No clubbing, No cyanosis, Edema Skin: No breakdown Musculoskeletal: No Tenderness to Palpation of Joints or Extremities Lymphatic: No Cervical, Supraclavicular, or Inguinal Adenopathy Neurological: Neuro grossly intact Psych/Mental Status: Normal Affect, Appropriate Vital Signs Temp Pulse Resp BP Pulse Ox 97.3 F L 70 20 H 106/62 93 06/05/18 15:30 06/05/18 15:30 06/05/18 15:30 06/05/18 15:30 06/05/18 15:30 Oxygen Flow Rate (L/min) 4 Oxygen Delivery Method Nasal Cannula Weight: 206 lb Body Mass Index (BMI) 31.3 Intake and Output for Last 24 Hours 06/04/18 06/05/18 06/06/18 23:59 23:59 23:59 Intake Total 700 / 700 Balance 700 / 700 Laboratory Tests Past 24 Hrs 06/05/18 06/05/18 12:16 12:30 POC PT 13.5 INR 1.10 Miscellaneous Test Pending POC Glucose 06/05/18 06/05/18 14:54 12:15 POC Glucose 131 H 141 H Assessment/Plan All Active Problems (Last Reviewed 04/30/18 @ 11:08 by Marlene Cheek NP-C) Gram-negative pneumonia (Acute) Shortness of breath (Acute) Peripheral vascular disease (Acute) ASSESSMENT & PLAN 1. Mediastinal lymphadenopathy Given the extensive nature of the patient's mediastinal lymphadenopathy in conjunction with his undifferentiated pleural effusion, the patient was referred to undergo mediastinal lymph node sampling via endobronchial ultrasound. The risks and benefits of the procedure were discussed with the patient and his family, prior to obtaining consent. Questions were answered accordingly. I did explain to them that the final pathology reports would likely not be made available until sometime next week. They will be contacted once they are available and brought into the pulmonary medicine office for a review of the test results. Code Visit 9xxxx: Other Procedure See Report
--- NOTE | 2018-06-06 07:13 | HP.PCM_ITS ---
History of Present Illness Date of Admission: 06/05/18 Chief Complaint: Mediastinal lymphadenopathy The patient is a 73-year-old male whom I initially evaluated in November when he was admitted to the hospital with shortness of breath and lower extremity edema. The patient was treated empirically at that time with antibiotics for presumptive pneumonia and underwent volume optimization with IV diuretics. He has a rather extensive medical history including coronary artery disease for which she is status post CABG, aortic valve replacement, atrial fibrillation and has an ICD in place. The patient reports that he was previously seen by a aerial photographer in [place] who had prescribed Symbicort to him. However, the patient is not aware of ever having been diagnosed with COPD or asthma. He does report previous cigar smoking but has been abstinent from tobacco completely for 50 years. 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 chest from the patient's hospitalization in November revealed a moderate to large right pleural effusion with atelectasis and/or consolidation along with mild central vascular congestion and left pleural thickening. A surface echocardiogram also completed at that time revealed normal LV size with mild concentric LVH and an ejection fraction of 50%. Pulmonary artery systolic pressure was estimated to be 52 mmHg. 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 A 6-minute walk test was also completed at that time and revealed the need for 3 L/min of supplemental oxygen with exertion. The patient was then evaluated in the emergency department at the beginning of April for back pain. A repeat CT chest was obtained and revealed a persistent moderate right-sided pleural effusion along with mediastinal lymphadenopathy. The patient followed up with our nurse practitioner and was referred to undergo an ultrasound-guided thoracentesis at the beginning of May. Cytology was negative. Cultures were also negat eric. The effusion itself was likely exudative. However, serum LDH and total protein were never sent. Due to the patient's extensive mediastinal adenopathy, he was referred to undergo mediastinal lymph node sampling via EBUS. Past Medical History Past Medical History (Chronic Problems): Chronic Problems (Last Reviewed 04/30/18 @ 11:08 by Marlene Cehek NP-C) Aortic aneurysm of unspecified site, without rupture (Chronic) GERD (gastroesophageal reflux disease) (Chronic) COPD (chronic obstructive pulmonary disease) (Chronic) Chronic kidney disease, stage III (moderate) (Chronic) Other Alzheimer's disease (Chronic) Leg mass (Chronic) Pleural effusion (Chronic) Heart failure with preserved ejection fraction (Chronic) Generalized leg edema (Chronic) Atrial fibrillation (Chronic) Presence of implantable cardioverter-defibrillator (ICD) (Chronic) Valvular heart disease (Chronic) Atherosclerotic heart disease of [place] coronary artery without angina pectoris (Chronic) Hyperlipidemia (Chronic) Hypertension (Chronic) PAD (peripheral artery disease) (Chronic) Medical History: Medical History (Last Reviewed 04/30/18 @ 11:08 by Marlene Cheek NP-C) Atrial fibrillation (Chronic) I48.91 Valvular heart disease (Chronic) I38 Atherosclerotic heart disease of [place] coronary artery without angina pectoris (Chronic) I25.10 Hyperlipidemia (Chronic) E78.5 Hypertension (Chronic) I10 PAD (peripheral artery disease) (Chronic) I73.9 Peripheral vascular disease (Acute) I73.9 Alzheimer's dementia G30.9, F02.80 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 Partial foot and digits Anemia D64.9 Anxiety F41.9 COPD (chronic obstructive pulmonary disease) J44.9 Chronic kidney disease N18.9 GERD (gastroesophageal reflux disease) K21.9 Hypothyroidism E03.9 Type 2 diabetes mellitus E11.9 Allergies aspirin Adverse Reaction (Intermediate, Verified 06/02/18 08:18) Unknown iodine Adverse Reaction (Unknown, Verified 06/02/18 08:18) Unknown Patient has one kidney, professor of medicine wanted it listed as allergy Home Medications: Ambulatory Orders Medication Instructions Recorded acetaminophen 325 mg capsule 650 mg PO Q4H PRN 10/01/17 acetaminophen 650 mg rectal 650 mg RC Q4H PRN supp 10/01/17 suppository aluminum-magnesium hydroxide 225 30 ml PO Q4H PRN 10/01/17 mg-200 mg/5 mL oral suspension ascorbic acid (vitamin C) 250 mg 250 mg PO DAILY 10/01/17 tablet bisacodyl 10 mg rectal suppository 10 mg RC DAILY PRN PRN 10/01/17 carvedilol 25 mg tablet 25 mg PO BID 10/01/17 clopidogrel 75 mg tablet 75 mg PO DAILY 10/01/17 ferrous sulfate 325 mg (65 mg 325 mg PO TID tab 10/01/17 iron) tablet glucagon (human recombinant) 1 mg 1 mg IM ONCE 10/01/17 injection kit ipratropium-albuterol 0.5 mg-3 3 ml INHALATION Q6H PRN ml 10/01/17 mg(2.5 mg base)/3 mL nebulization soln magnesium hydroxide 400 mg/5 mL 30 ml PO ONCE 10/01/17 oral suspension multivitamin tablet 1 tab PO DAILY 10/01/17 pantoprazole 40 mg tablet,delayed 40 mg PO DAILY 10/01/17 release sennosides 8.6 mg tablet 8.6 mg PO BID 10/01/17 tamsulosin 0.4 mg capsule 0.4 mg PO QHS 10/01/17 vitamin E (dl, acetate) 400 unit 400 unit PO DAILY 10/01/17 capsule linagliptin 5 mg tablet 5 mg PO DAILY 10/02/17 Amlodipine [Norvasc] 5 mg PO DAILY 04/10/18 Argin/Glut/Cahmb/Collag/Mv-Min 1 each PO BID 04/10/18 [Wagner Packet] Atorvastatin Calcium 20 mg PO QHS 04/10/18 Buspirone HCl 5 mg PO BID 04/10/18 Furosemide [Lasix] 40 mg PO BID 04/10/18 Ipratropium/Albuterol Sulfate 3 ml INHALATION 4X/DAY 04/10/18 [Duoneb] Levothyroxine Sodium [Synthroid] 100 mcg PO DAILY 04/10/18 Memantine Hydrochloride [Namenda] 5 mg PO BID 04/10/18 Metolazone [Zaroxolyn] 2.5 mg PO DAILY 04/10/18 Oxycodone HCl/Acetaminophen 1 tab PO BID 04/10/18 [Percocet 5/325] Potassium Chloride [Klor-Con M20] 20 meq PO BID 04/10/18 Propylene Glycol/Peg 400 [Systane 1 drop EACH EYE TID 04/10/18 0.3-0.4% Eye Drops] traZODone [Desyrel] 25 mg PO QHS 04/10/18 Zinc Sulfate (50mg elemental) 220 mg PO QHS 06/02/18 [Zinc Sulfate] Surgical History: Surgical History (Last Reviewed 04/30/18 @ 11:08 by Marlene Cheek NP-C) Presence of implantable cardioverter-defibrillator (ICD) (Chronic) Z95.810 H/O aortic valve replacement Z95.2 History of cholecystectomy Z98.890, Z90.49 History of hip replacement, total Z96.649 Rt History of knee replacement, total Z96.659 bilateral History of nephrectomy Z98.890, Z90.5 Lt H/O prosthetic aortic valve replacement (Inactive) Z95.2 Surgical History: - - Patient had bypass surgery on his left leg approximately 1 month ago, 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 Smoking Status: Former smoker - *Family History Maternal Family History: Family History (Last Reviewed 04/30/18 @ 11:08 by FARZANEH Krueger) Mother CAD (coronary artery disease) Father CAD (coronary artery disease) Brother CAD (coronary artery disease) Sister CAD (coronary artery disease) History Items: No pertinent history Paternal Family History: Family History (Last Reviewed 04/30/18 @ 11:08 by FARZANEH Krueger) Mother CAD (coronary artery disease) Father CAD (coronary artery disease) Brother CAD (coronary artery disease) Sister CAD (coronary artery disease) History Items: No pertinent history Review of Systems Constitutional: Denies: Anorexia, Chills, Fever Eyes: Denies: Blurred vision, Double vision HEENT: Denies: Head Aches, Sinus Congestion, Sinus Drainage Cardiovascular: Denies: Chest Pain, Palpitations Respiratory: Reports: Shortness of Breath Gastrointestinal: Denies: Abdominal Pain, Nausea, Vomiting Genitourinary: Denies: Dysuria Musculoskeletal: Reports: Back Pain Skin: Denies: Rash, Wounds Neurological: Denies: Numbness, Tingling, Focal weakness Psychiatric: Denies: Anxiety, Depression, Homicidal Ideations, Suicidal Ideations Hematologic/ Lymphatic: Denies: Easy Bruising, Easy Bleeding VTE Information - Inpt Only VTE Present on Admission: No VTE Mechan Device Prophylaxis: None VTE Pharm Prophylaxis ordered?: No Reason prophylaxis not ordered:: Treatment Not Indicated Objective: The patient's most recent lab work, culture data and imaging studies have all been personally reviewed. - Physical Exam General: Alert, Cooperative, No apparent distress, - - The patient's daughter is present at the bedside. HEENT: Atraumatic, PERRLA, Normocephalic Oral: No Gingival or Mucosal Lesions/ Ulcerations Neck: Supple, No Nodes, Trachea Midline Lungs: No rhonchi, No wheeze, No rales, Diminished Cardiovascular: Regular rate, Regular Rhythm, Normal S1, Normal S2, Murmur Abdomen: Bowel Sounds Present, Soft, Non Tender Extremities: No clubbing, No cyanosis, Edema Skin: No breakdown Musculoskeletal: No Tenderness to Palpation of Joints or Extremities Lymphatic: No Cervical, Supraclavicular, or Inguinal Adenopathy Neurological: Neuro grossly intact Psych/Mental Status: Normal Affect, Appropriate Vital Signs Temp Pulse Resp BP Pulse Ox 97.3 F L 70 20 H 106/62 93 06/05/18 15:30 06/05/18 15:30 06/05/18 15:30 06/05/18 15:30 06/05/18 15:30 Oxygen Flow Rate (L/min) 4 Oxygen Delivery Method Nasal Cannula Weight: 206 lb Body Mass Index (BMI) 31.3 Intake and Output for Last 24 Hours 06/04/18 06/05/18 06/06/18 23:59 23:59 23:59 Intake Total 700 / 700 Balance 700 / 700 Laboratory Tests Past 24 Hrs 06/05/18 06/05/18 12:16 12:30 POC PT 13.5 INR 1.10 Miscellaneous Test Pending POC Glucose 06/05/18 06/05/18 14:54 12:15 POC Glucose 131 H 141 H Assessment/Plan All Active Problems (Last Reviewed 04/30/18 @ 11:08 by Marlene Cheek NP-C) Gram-negative pneumonia (Acute) Shortness of breath (Acute) Peripheral vascular disease (Acute) ASSESSMENT & PLAN 1. Mediastinal lymphadenopathy Given the extensive nature of the patient's mediastinal lymphadenopathy in conjunction with his undifferentiated pleural effusion, the patient was referred to undergo mediastinal lymph node sampling via endobronchial ultrasound. The risks and benefits of the procedure were discussed with the patient and his family, prior to obtaining consent. Questions were answered accordingly. I did explain to them that the final pathology reports would likely not be made available until sometime next week. They will be contacted once they are available and brought into the pulmonary medicine office for a review of the test results. Code Visit 9xxxx: Other Procedure See Report
== END 2018-06-05 16:00 | disposition skilled nursing facility (03) ==
LOC: EN 11:58 → AC 11:58
PROVIDERS: Family Provider Family Medicine; PCP Family Medicine; Visit Provider Internal Medicine Critical Care Medicine
PROC: 0BJ08ZZ Inspection of Tracheobronchial Tree, Via Natural or Artificial Opening Endoscopic (ICD-10-PCS; CPT 31622; principal; 2018-06-05 12:00)
DX: R59.0 Localized enlarged lymph nodes (principal); I25.10 Atherosclerotic heart disease of native coronary artery without angina pectoris; I48.91 Unspecified atrial fibrillation; Z95.810 Presence of automatic (implantable) cardiac defibrillator; Z95.2 Presence of prosthetic heart valve; Z87.891 Personal history of nicotine dependence; Z95.1 Presence of aortocoronary bypass graft; K21.9 Gastro-esophageal reflux disease without esophagitis; D64.9 Anemia, unspecified; E78.00 Pure hypercholesterolemia, unspecified; G25.81 Restless legs syndrome; Z90.5 Acquired absence of kidney; I25.2 Old myocardial infarction; J44.9 Chronic obstructive pulmonary disease, unspecified; I12.9 Hypertensive chronic kidney disease with stage 1 through stage 4 chronic kidney disease, or unspecified chronic kidney disease; N18.3 Chronic kidney disease, stage 3 (moderate); G30.8 Other Alzheimer's disease; F02.80 Dementia in other diseases classified elsewhere, unspecified severity, without behavioral disturbance, psychotic disturbance, mood disturbance, and anxiety; I13.10 Hypertensive heart and chronic kidney disease without heart failure, with stage 1 through stage 4 chronic kidney disease, or unspecified chronic kidney disease; E03.9 Hypothyroidism, unspecified; E11.22 Type 2 diabetes mellitus with diabetic chronic kidney disease; I13.0 Hypertensive heart and chronic kidney disease with heart failure and stage 1 through stage 4 chronic kidney disease, or unspecified chronic kidney disease; I50.32 Chronic diastolic (congestive) heart failure; Z79.84 Long term (current) use of oral hypoglycemic drugs; Z79.02 Long term (current) use of antithrombotics/antiplatelets; Z79.899 Other long term (current) drug therapy; F41.9 Anxiety disorder, unspecified; Z96.641 Presence of right artificial hip joint; Z96.653 Presence of artificial knee joint, bilateral
CPT/HCPCS: 31629; 31654; 36416; 82962; 85610; 88108; 88305; 88313; J7120; J2405